=== PATIENT | female | born 1945 | race Caucasian/White ===

== ENCOUNTER 2018-01-26 13:45 | Inpatient (IN) | payer MEDICARE, OTHER ==
--- NOTE | 2018-01-26 14:01 | ED Physician Chart ---
ED Chief Complaint/HPI - Patient Information Date Seen:: 01/26/18 Time Seen:: 13:45 Chief Complaint:: Agitation History of Present Illness:: onset x 3 days of agitation and hostile behavior; no report of SIs, trauma, H/As , S/T, neck pain, C/P, SOB, Abd. Pain, A/N/V/D/C, fever, chills, or urinarys/s Allergies:: Allergies Allergy/AdvReac Type Severity Reaction Status Date / Time MDX No Known Allergies - Nka Allergy Verified 10/07/14 18:08 [No Known Allergies - Nka] Historian:: Patient, EMS Review:: Nurse's Note Reviewed, Old Chart Reviewed, EMS run form Reviewed ED Review of Systems - Review of Systems General/Constitutional: No fever, No chills, No weight loss, No weakness, No diaphoresis, No edema, No loss of appetite Skin: No skin lesions, No rash, No bruising Head: No headache, No light-headedness Eyes: No loss of vision, No pain, No diplopia ENT: No earache, No nasal drainage, No sore throat, No tinnitus Neck: No neck pain, No swelling, No thyromegaly, No stiffness, No mass noted Cardio Vascular: No chest pain, No palpitations, No PND, No orthopnea, No edema Pulmonary: No SOB, No cough, No sputum, No wheezing GI: No nausea, No vomiting, No diarrhea, No pain, No melena, No hematochezia, No constipation, No hematemesis G/U: No dysuria, No frequency, No hematuria, No nacturia [employer]: No vaginal discharge, No abnormal vaginal bleed, No contraction Musculoskeletal: No bone or joint pain, No back pain, No muscle pain Endocrine: No polyuria, No polydipsia Psychiatric: Prior psych history, No depression, Anxiety, No suicidal ideation, No homicidal ideation, No auditory hallucination, No visual hallucination Hematopoietic: No bruising, No lymphadenopathy Allergic/Immuno: No urticaria, No angioedema Neurological: No syncope, No focal symptoms, No weakness, No paresthesia, No headache, No seizure, No dizziness, No confusion, No vertigo ED Past Medical History - Past Medical History Obtainable: Yes Past Medical History: HTN, CAD, Dyslipidemia, Arthritis Family History: HTN Social History: Non Smoker, No Alcohol, No Drug Use, Single, Care Facility Surgical History: None Psychiatricy History: Bipolar Medication: Reviewed Family Medical History - Family Member Mother History Unknown: Yes Ethnicity: Non- Living Status: Hx Family Cancer: No Hx Family Coronary Artery Disease: No Hx Family Congestive Heart Failure: No Hx Family Hypertension: Yes Hx Family Stroke: No Hx Family Diabetes: No Hx Family Seizures: No Hx Family Dementia: Yes Hx Family AIDS: No Hx Family HIV: No Hx Family COPD: No Hx Family Hepatitis: No Hx Family Psychiatric Problems: Yes Hx Family Tuberculosis: No ED Physical Exam - Physical Examination General/Constitutional: Awake, Well-developed, well-nourished, Alert, No distress, GCS 15, Non-toxic appearing, Ambulatory Head: Atraumatic Eyes: Lids, conjuctiva normal, PERRL, EOMI Skin: Nl inspection, No rash, No skin lesions, No ecchymosis, Well hydrated, No lymphadenopathy ENMT: External ears, nose nl, TM canals nl, Nasal exam nl, Lips, teeth, gums nl , Oropharynx nl, Tonsils nl Neck: Nontender, Full ROM w/o pain, No JVD, No nuchal rigidity, No bruit, No mass, No stridor Respiratory: Nl effort/Exclusion, Clear to Auscultation, No Wheeze/Rhonchi/Rales Cardio Vascular: RRR, No murmur, gallop, rubs, NL S1 S2, Carotid/Femoral/Distal pulses equal bilaterally GI: No tenderness/rebounding/guarding, No organomegaly, No hernia, Normal BS's, Nondistended, No mass/bruits, No McBurney tenderness : No CVA tenderness Extremities: No tenderness or effusion, Full ROM, normal strength in all extremities, No edema, Normal digits & nails Neuro/Psych: Alert/oriented, DTR's symmetric, Normal sensory exam, Normal motor strength, Judgement/insight normal, Mood normal, Normal gait, No focal deficits Other Neuro/Psych comments:: + Psychomotor Agitation; no SIs; Mood/Affect: Labile Misc: Normal back, No paraspinal tenderness ED Labs/Radiology/EKG Results - Lab Results Comments:: unremarkable - EKG Interpretations EKG Time:: 13:59 Rate & Rhythm: 99; NSR Comments:: non-specific st-t changes ED Septic Shock - . Is Septic Shock (SBP<90, OR Lactate>4 mmol\L) present?: No ED Reassessment (Disposition) - Reassessment Reassessment Condition:: Improved - Diagnosis Diagnosis:: Dx: Agitation; Bipolar Disorder; Psychosis; Medical Clearance - Aftercare/Follow up Instructions Aftercare/Follow-Up Instructions:: Counseled pt regarding lab results/diagnosis & need follow up, Counseled pt & family regarding lab results/diagnosis & need follow up - Patient Disposition Discharge/Transfer:: Acute Care w/in this hosp Admitted to:: [facility] Condition at Disposition:: Stable, Improved
[2018-01-26 14:13] LABS: % BASOPHILS 1.2 % (0.0-2.0); % EOSINOPHILS 1.4 % (0.0-5.0); % LYMPHOCYTES 36.1 % (20.0-50.0); % MONOCYTES 5.6 % (2.0-10.0); % NEUTROPHILS 55.7 % (40.0-80.0); BASOPHILE ABSOLUTE 0.1 Th/cumm (0-0.2); EOSINOPHILE ABSOLUTE 0.1 Th/cmm (0.1-0.4); HEMATOCRIT 39.8 % (41.0-60); HEMOGLOBIN 13.2 gm/dL (12-16); LYMPHOCYTE ABSOLUTE 3.8 Th/cmm (1.5-3.0); MEAN CELL VOLUME 88.9 fl (81-100); MEAN CORPUSCULAR HEMOGLOBIN 29.5 pg (27.0-31.0); MEAN CORPUSCULAR HGB CONC 33.2 pg (28.0-36.0); MEAN PLATELET VOLUME 9.2 fl; MONOCYTE ABSOLUTE 0.6 Th/cmm (0.3-1.0); NEUTROPHILE ABSOLUTE 5.8 Th/cmm (1.8-8.0); PLATELET COUNT 319 Th/cmm (150-400); RED BLOOD COUNT 4.47 Mil/cmm (3.80-5.20); RED CELL DISTRIBUTION WIDTH 14.4 % (11.5-20.0); WHITE BLOOD COUNT 10.4 Th/cmm (4.8-10.8)
[2018-01-26 14:31] LABS: A1C % 5.4 % (4.0-6.0)
[2018-01-26 14:36] LABS: ACETAMINOPHEN < 10.0 ug/mL (10.0-30.0); ALB/GLOB RATIO 1.2 (1.0-1.8); ALKALINE PHOSPHATASE 48 U/L (34-104); ANION GAP 17.2 (7.0-16.0); BILIRUBIN,TOTAL 0.6 mg/dL (0.3-1.0); BUN - UREA NITROGEN 35 mg/dL (7-25); CALCIUM SERUM 9.9 mg/dL (8.6-10.3); CARBON DIOXIDE 16.5 mEq/L (21.0-31.0); CHLORIDE 109 mEq/L (98-107); CHOLESTEROL 146 mg/dL (<200); CREATININE - SERUM 1.8 mg/dL (0.6-1.2); GLUCOSE 92 mg/dL (70-105); HDL -HIGH DENSITY LIPOPROTEIN 28 mg/dL (23-92); POTASSIUM SERUM 4.7 mEq/L (3.5-5.1); SALICYLATES (ASPIRIN) < 25.0 mg/L (30.0-100.0); SGOT 20 U/L (13-39); SGPT/ALT 21 U/L (7-52); SODIUM SERUM 138 mEq/L (136-145); TOTAL PROTEIN,SERUM 7.4 gm/dL (6.0-8.3); TRIGLYCERIDES 153 mg/dL (<150)
[2018-01-26 17:32] VITALS: BP 142/53
[2018-01-26] MEDS ORDERED: Magnesium Hydroxide (MOM) 30 mL UDC PO PRN (21:12)
[2018-01-26] MEDS ORDERED: Maalox 30 mL Cup PO PRN (21:12)
[2018-01-26] MEDS ORDERED: Albuterol Nebulizer 2.5mg/3mL HHN PRN (21:12)
[2018-01-27] MEDS ORDERED: Non-Formulary Item 1 EA (Linaclotide [Linzess] 145 MCG) PO SCH (09:00)
[2018-01-27] MEDS: Lactobacillus Rhamnosus GG 15 Billion CFU CAP.SPRINK PO SCH (12:55)
[2018-01-27] MEDS: Potassium Chloride 20 mEq ER Tab PO SCH (12:56)
[2018-01-27] MEDS: Multivitamin w/ Minerals Tab PO SCH (12:56)
--- NOTE | 2018-01-27 23:42 | History & Physical ---
ADMIT DATE: 01/27/2018 REASON FOR ADMISSION: Psychiatric disorder. HISTORY OF PRESENT ILLNESS: This is a 73-year-old female with underlying history of seizure disorders, hypertension, GERD, dementia, mental disorders, who was admitted to [facility] for underlying psychiatric illness by Dr. Sandoval. Dr. Sandoval requested medical H and P on this patient. The patient's at the time of evaluation seems very confused and noncooperative, unable to get any meaningful history. Most of the history was obtained through available medical records. PAST MEDICAL HISTORY: Hypertension, seizure disorder, GERD. PAST SURGICAL HISTORY: No significant past surgical history reported. SOCIAL HISTORY: No reported alcohol, tobacco or street drug use. CURRENT MEDICATIONS: Albuterol, Norvasc, Depakote, Colace, Pepcid, Ativan, Cozaar, milk of magnesia, Megace, Lopressor, Seroquel, Klor-Con, Ambien. REVIEW OF SYSTEMS: Difficult to obtain due to the patient's uncooperativeness. ALLERGIES: ALLERGIC TO PENICILLIN. PHYSICAL EXAMINATION: VITAL SIGNS: Temperature 97.7, pulse 93, respirations 20, blood pressure 157/71, oxygen 94% on room air. Pain is 0/10. GENERAL APPEARANCE: The patient does not seem in acute distress. HEART: S1, S2 normal. LUNGS: Clear to auscultation bilaterally. ABDOMEN: Soft. NEUROLOGIC: The patient is awake, but confused. Able to move all extremities. EXTREMITIES: Negative for edema. AVAILABLE LABORATORY DATA: WBC 10.4, hemoglobin 13.0, hematocrit is 39.8, platelet count is 319. Sodium 130, potassium 4.7, BUN 35, creatinine 1.8, AST 20, ALT 21. LDL 93. TSH 2.89. Ethyl alcohol less than 10. ASSESSMENT: 1. Acute renal failure most likely underlying dehydration. 2. Hypertension. 3. Seizure disorder. 4. Gastroesophageal reflux disease. 5. Dementia. 6. Psychiatric disorder. PLAN: We will monitor the patient's renal functions closely. I discussed with nursing staff regarding encouraging patient to have more oral intake. We will monitor renal functions closely. Monitor vital signs. Medication list reviewed. Psych evaluation done by psychiatrist. The patient is medically stable to participate in activity at [facility]. Thank you, Dr. Sandoval, for allowing me to participate in the care of this patient. JOB# [id number]
--- NOTE | 2018-01-28 05:40 | Psychosocial Evaluation ---
DATE OF SERVICE: 01/27/2018 IDENTIFYING DATA: The patient is a 73-year-old woman, a resident of [facility]. Information obtained directly interviewing the patient as well as reviewing the admission papers. JUSTIFICATION FOR THE HOSPITALIZATION: The patient is admitted on a voluntary basis in view of her aggression and agitated behavior. CHIEF COMPLAINT: "I do not know. I do not need any medications." HISTORY OF PRESENT ILLNESS: This is the second psychiatric hospitalization for this patient who has been diagnosed to have schizoaffective disorder and is maintained on the mood stabilizers and antipsychotics and the patient has been referred over here because of her acute agitation and aggressive behavior. The patient is reporting that she is doing fine and then she does not need to be on any medications. The patient's sleep and appetite prior to the hospitalization are not reported to be poor and patient has been reluctant to comply with the medication. Prior to the hospitalization, the patient has been on the valproic acid 250 mg twice a day and the patient has been very agitated and Seroquel is going to be added today to see if the patient is going to be compliant with the medication. PAST PSYCHIATRIC HISTORY: Please refer to the above. The patient was hospitalized under my care in 2014. MEDICAL HISTORY: Physical examination is requested to be done by Dr. Salas. SUBSTANCE ABUSE HISTORY: None. PHYSICAL OR SEXUAL ABUSE HISTORY: None. LEGAL PROBLEMS: None at this time. STRENGTH AND ASSETS: The patient is motivated. MENTAL STATUS EXAMINATION: The patient is a 73-year-old, looking her stated age, superficially cooperative. Eye contact is fair. Mood is irritable. Affect is constricted. Insight and judgment at this time are noted to be still impaired. Impulse control seems to be poor. Coping skills are noted to be poor. The patient has been very reluctant to comply with the medication. The patient has been having difficult time to cope with the stress. The patient is testing the limits. The patient is alert and aware that she is in the hospital. DIAGNOSTIC IMPRESSION: AXIS I: Schizoaffective disorder. AXIS II: None. AXIS III: As per Dr. Salas. IMMEDIATE TREATMENT PLAN: The patient is going to be observed on inpatient unit and provided with supportive psychotherapy. The patient is going to be closely monitored. I encouraged to verbalize the concerns rather than to act out. Once stabilized, the patient is going to be discharged to [facility] to be followed up on an outpatient basis. [facility]# [id number]
[2018-01-28] MEDS: Multivitamin w/ Minerals Tab PO SCH (09:03)
[2018-01-28] MEDS: Potassium Chloride 20 mEq ER Tab PO SCH (09:04)
[2018-01-28] MEDS: Lactobacillus Rhamnosus GG 15 Billion CFU CAP.SPRINK PO SCH (09:04)
--- NOTE | 2018-01-28 18:47 | Progress Notes ---
DATE: 01/28/2018 SUBJECTIVE: Mood is noted to be irritable. Affect is constricted. Insight and judgment are noted to be impaired. The patient is refusing to comply with the treatment. The patient has been hitting herself and has been trying to hit the staff members too. The patient has no coping skills. The patient is very paranoid. Coping skills are noted to be extremely poor. ASSESSMENT: The patient is still grossly psychotic and impulsive. PLAN: To place the patient on a 72-hour hold and encourage the patient to verbalize the concerns rather than to act out and if the patient continues to be compliant with the medication, the patient is going to be placed on the [place] hearing. [facility]# [id number]
--- NOTE | 2018-01-28 21:02 | General Progress Note ---
Subjective - Review of Systems Service Date: 01/28/18 Subjective: Patient seen and examined confused no new concern reported Objective - Results Result Diagrams: 01/26/18 14:04 01/26/18 14:04 Recent Labs: Laboratory Last Values WBC 10.4 Th/cmm (4.8-10.8) 01/26/18 14:04 RBC 4.47 Mil/cmm (3.80-5.20) 01/26/18 14:04 Hgb 13.2 gm/dL (12-16) 01/26/18 14:04 Hct 39.8 % (41.0-60) L 01/26/18 14:04 MCV 88.9 fl (81-100) 01/26/18 14:04 MCH 29.5 pg (27.0-31.0) 01/26/18 14:04 MCHC Differential 33.2 pg (28.0-36.0) 01/26/18 14:04 RDW 14.4 % (11.5-20.0) 01/26/18 14:04 Plt Count 319 Th/cmm (150-400) 01/26/18 14:04 MPV 9.2 fl 01/26/18 14:04 Neutrophils % 55.7 % (40.0-80.0) 01/26/18 14:04 Lymphocytes % 36.1 % (20.0-50.0) 01/26/18 14:04 Monocytes % 5.6 % (2.0-10.0) 01/26/18 14:04 Eosinophils % 1.4 % (0.0-5.0) 01/26/18 14:04 Basophils % 1.2 % (0.0-2.0) 01/26/18 14:04 Sodium 138 mEq/L (136-145) 01/26/18 14:04 Potassium 4.7 mEq/L (3.5-5.1) 01/26/18 14:04 Chloride 109 mEq/L (98-107) H 01/26/18 14:04 Carbon Dioxide 16.5 mEq/L (21.0-31.0) L 01/26/18 14:04 Anion Gap 17.2 (7.0-16.0) H 01/26/18 14:04 BUN 35 mg/dL (7-25) H 01/26/18 14:04 Creatinine 1.8 mg/dL (0.6-1.2) H 01/26/18 14:04 Est GFR ( Amer) TNP 01/26/18 14:04 Est GFR (Non-Af Amer) TNP 01/26/18 14:04 BUN/Creatinine Ratio 19.4 01/26/18 14:04 Glucose 92 mg/dL (70-105) 01/26/18 14:04 Hemoglobin A1c % 5.4 % (4.0-6.0) 01/26/18 14:04 Calcium 9.9 mg/dL (8.6-10.3) 01/26/18 14:04 Total Bilirubin 0.6 mg/dL (0.3-1.0) 01/26/18 14:04 AST 20 U/L (13-39) 01/26/18 14:04 ALT 21 U/L (7-52) 01/26/18 14:04 Alkaline Phosphatase 48 U/L (34-104) 01/26/18 14:04 Total Protein 7.4 gm/dL (6.0-8.3) 01/26/18 14:04 Albumin 4.0 gm/dL (3.7-5.3) 01/26/18 14:04 Globulin 3.4 gm/dL 01/26/18 14:04 Albumin/Globulin Ratio 1.2 (1.0-1.8) 01/26/18 14:04 Triglycerides 153 mg/dL (<150) H 01/26/18 14:04 Cholesterol 146 mg/dL (<200) 01/26/18 14:04 LDL Cholesterol Direct 93 mg/dL (75-193) 01/26/18 14:04 HDL Cholesterol 28 mg/dL (23-92) 01/26/18 14:04 TSH 2.89 uIU/ml (0.34-5.60) 01/26/18 14:04 Salicylates < 25.0 mg/L (30.0-100.0) L 01/26/18 14:04 Acetaminophen < 10.0 ug/mL (10.0-30.0) L 01/26/18 14:04 Ethyl Alcohol < 10 mg/dL (0-10) 01/26/18 14:04 - Physical Exam Vitals and I&O: Vital Signs Temp 97.7 F 01/28/18 20:00 Pulse 72 01/28/18 20:00 Resp 17 01/28/18 20:00 BP 132/58 01/28/18 20:00 Pulse Ox 96 01/28/18 20:00 Intake & Output 01/28/18 01/28/18 01/29/18 06:59 18:59 06:59 Intake Total 240 Balance 240 Intake: Oral 240 Other: # Voids 3 Active Medications: Current Medications Acetaminophen (Tylenol) 650 mg PO Q4HR PRN PRN Reason: Mild Pain / Temp above 100 Stop: 03/27/18 21:13 Al Hydrox/Mg Hydrox/Simethicone (Maalox) 30 ml PO Q6HR PRN PRN Reason: Upset Stomach / Indigestion Stop: 03/27/18 21:11 Albuterol Sulfate (Albuterol 2.5mg/3ml Neb Ud) 2.5 mg HHN Q6HRT PRN PRN Reason: WHEEZING AND SOB Stop: 03/27/18 21:11 Amlodipine Besylate (Norvasc) 10 mg PO DAILY [facility] Stop: 03/28/18 08:59 Last Admin: 01/28/18 09:03 Dose: 10 mg Divalproex Sodium (Depakote Dr) 250 mg PO Q12HR ETHEL PRN Reason: Protocol Stop: 03/28/18 08:59 Last Admin: 01/28/18 09:03 Dose: 250 mg Docusate Sodium (Colace) 100 mg PO BID E[facility] Stop: 03/28/18 08:59 Last Admin: 01/28/18 17:13 Dose: 100 mg Famotidine (Pepcid) 20 mg PO BID [facility] Stop: 03/28/18 08:59 Last Admin: 01/28/18 17:09 Dose: 20 mg Lactobacillus Rhamnosus (Culturelle 15b) 1 each PO DAILY [facility] Stop: 03/28/18 08:59 Last Admin: 01/28/18 09:04 Dose: 1 each Lorazepam (Ativan) 0.5 mg PO Q4HR PRN; Protocol PRN Reason: Anxiety Stop: 02/25/18 21:13 Last Admin: 01/28/18 17:09 Dose: 0.5 mg Losartan Potassium (Cozaar) 50 mg PO DAILY [facility] Stop: 03/28/18 08:59 Last Admin: 01/28/18 09:04 Dose: 50 mg Magnesium Hydroxide (Milk Of Magnesia) 30 ml PO HS PRN PRN Reason: Constipation Stop: 03/27/18 21:11 Megestrol Acetate (Megace) 400 mg PO BID [facility] Stop: 03/28/18 08:59 Last Admin: 01/28/18 17:10 Dose: 400 mg Metoprolol Tartrate (Lopressor) 50 mg PO BID [facility] Stop: 03/28/18 08:59 Last Admin: 01/28/18 17:10 Dose: 50 mg Miscellaneous (Linaclotide [Linzess]) 145 mcg PO DAILY [facility] Stop: 03/28/18 08:59 Mupirocin (Bactroban Oint) 1 appl NS BID [facility] Stop: 02/02/18 09:01 Potassium Chloride (Klor-Con) 20 meq PO DAILY [facility] Stop: 03/28/18 08:59 Last Admin: 01/28/18 09:04 Dose: 20 meq Quetiapine Fumarate (Seroquel) 12.5 mg PO HS ETHEL PRN Reason: Protocol Stop: 03/28/18 20:59 Zolpidem Tartrate (Ambien) 5 mg PO HS PRN PRN Reason: Insomnia Stop: 03/27/18 21:13 Cardiovascular: Regular rate Lungs: Clear to auscultation - Procedures Procedures: Procedures Procedure Code Date OTHER GROUP THERAPY 94.44 05/10/15 RECREATIONAL THERAPY 93.81 08 Assessment/Plan - Problem List Patient Problems: All Active Problems INCREASED AGITATION, AGGRESSION/CONFUSIO (Acute) - Assessment Assessment: HTN GERD SEIZURE MRSA COLONIZATION - Plan Plan: Continue current treatment Monitor BP Bactroban Pepcid Psych follow up
[2018-01-29] MEDS ORDERED: Haloperidol Lactate 5 mg/mL 1mL Vial ONE (09:00)
[2018-01-29] MEDS: Lactobacillus Rhamnosus GG 15 Billion CFU CAP.SPRINK PO SCH (09:11)
[2018-01-29] MEDS: Multivitamin w/ Minerals Tab PO SCH (09:12)
[2018-01-29] MEDS: Potassium Chloride 20 mEq ER Tab PO SCH (09:12)
[2018-01-29] MEDS ORDERED: Haloperidol Lactate 5 mg/mL 1mL Vial IM ONE (09:15)
--- NOTE | 2018-01-29 18:25 | General Progress Note ---
Subjective - Review of Systems Service Date: 01/29/18 Subjective: Patient seen and examined doing ok no new concern reported Objective - Results Result Diagrams: 01/26/18 14:04 01/26/18 14:04 Recent Labs: Laboratory Last Values WBC 10.4 Th/cmm (4.8-10.8) 01/26/18 14:04 RBC 4.47 Mil/cmm (3.80-5.20) 01/26/18 14:04 Hgb 13.2 gm/dL (12-16) 01/26/18 14:04 Hct 39.8 % (41.0-60) L 01/26/18 14:04 MCV 88.9 fl (81-100) 01/26/18 14:04 MCH 29.5 pg (27.0-31.0) 01/26/18 14:04 MCHC Differential 33.2 pg (28.0-36.0) 01/26/18 14:04 RDW 14.4 % (11.5-20.0) 01/26/18 14:04 Plt Count 319 Th/cmm (150-400) 01/26/18 14:04 MPV 9.2 fl 01/26/18 14:04 Neutrophils % 55.7 % (40.0-80.0) 01/26/18 14:04 Lymphocytes % 36.1 % (20.0-50.0) 01/26/18 14:04 Monocytes % 5.6 % (2.0-10.0) 01/26/18 14:04 Eosinophils % 1.4 % (0.0-5.0) 01/26/18 14:04 Basophils % 1.2 % (0.0-2.0) 01/26/18 14:04 Sodium 138 mEq/L (136-145) 01/26/18 14:04 Potassium 4.7 mEq/L (3.5-5.1) 01/26/18 14:04 Chloride 109 mEq/L (98-107) H 01/26/18 14:04 Carbon Dioxide 16.5 mEq/L (21.0-31.0) L 01/26/18 14:04 Anion Gap 17.2 (7.0-16.0) H 01/26/18 14:04 BUN 35 mg/dL (7-25) H 01/26/18 14:04 Creatinine 1.8 mg/dL (0.6-1.2) H 01/26/18 14:04 Est GFR ( Amer) TNP 01/26/18 14:04 Est GFR (Non-Af Amer) TNP 01/26/18 14:04 BUN/Creatinine Ratio 19.4 01/26/18 14:04 Glucose 92 mg/dL (70-105) 01/26/18 14:04 Hemoglobin A1c % 5.4 % (4.0-6.0) 01/26/18 14:04 Calcium 9.9 mg/dL (8.6-10.3) 01/26/18 14:04 Total Bilirubin 0.6 mg/dL (0.3-1.0) 01/26/18 14:04 AST 20 U/L (13-39) 01/26/18 14:04 ALT 21 U/L (7-52) 01/26/18 14:04 Alkaline Phosphatase 48 U/L (34-104) 01/26/18 14:04 Total Protein 7.4 gm/dL (6.0-8.3) 01/26/18 14:04 Albumin 4.0 gm/dL (3.7-5.3) 01/26/18 14:04 Globulin 3.4 gm/dL 01/26/18 14:04 Albumin/Globulin Ratio 1.2 (1.0-1.8) 01/26/18 14:04 Triglycerides 153 mg/dL (<150) H 01/26/18 14:04 Cholesterol 146 mg/dL (<200) 01/26/18 14:04 LDL Cholesterol Direct 93 mg/dL (75-193) 01/26/18 14:04 HDL Cholesterol 28 mg/dL (23-92) 01/26/18 14:04 TSH 2.89 uIU/ml (0.34-5.60) 01/26/18 14:04 Salicylates < 25.0 mg/L (30.0-100.0) L 01/26/18 14:04 Acetaminophen < 10.0 ug/mL (10.0-30.0) L 01/26/18 14:04 Ethyl Alcohol < 10 mg/dL (0-10) 01/26/18 14:04 - Physical Exam Vitals and I&O: Vital Signs Temp 98.2 F 01/29/18 14:00 Pulse 87 01/29/18 14:00 Resp 18 01/29/18 14:00 BP 135/75 01/29/18 14:00 Pulse Ox 97 01/29/18 14:00 Intake & Output 01/28/18 01/29/18 01/29/18 18:59 06:59 18:59 Intake Total 240 1100 Balance 240 1100 Intake: Oral 240 1100 Other: # Voids 3 2 # Bowel Movements 0 Active Medications: Current Medications Acetaminophen (Tylenol) 650 mg PO Q4HR PRN PRN Reason: Mild Pain / Temp above 100 Stop: 03/27/18 21:13 Al Hydrox/Mg Hydrox/Simethicone (Maalox) 30 ml PO Q6HR PRN PRN Reason: Upset Stomach / Indigestion Stop: 03/27/18 21:11 Albuterol Sulfate (Albuterol 2.5mg/3ml Neb Ud) 2.5 mg HHN Q6HRT PRN PRN Reason: WHEEZING AND SOB Stop: 03/27/18 21:11 Amlodipine Besylate (Norvasc) 10 mg PO DAILY [facility] Stop: 03/28/18 08:59 Last Admin: 01/29/18 09:11 Dose: Not Given Divalproex Sodium (Depakote Dr) 250 mg PO Q12HR ETHEL PRN Reason: Protocol Stop: 03/28/18 08:59 Last Admin: 01/29/18 09:11 Dose: Not Given Docusate Sodium (Colace) 100 mg PO BID [facility] Stop: 03/28/18 08:59 Last Admin: 01/29/18 17:24 Dose: 100 mg Famotidine (Pepcid) 20 mg PO BID [facility] Stop: 03/28/18 08:59 Last Admin: 01/29/18 17:23 Dose: 20 mg Lactobacillus Rhamnosus (Culturelle 15b) 1 each PO DAILY [facility] Stop: 03/28/18 08:59 Last Admin: 01/29/18 09:11 Dose: Not Given Lorazepam (Ativan) 0.5 mg PO Q4HR PRN; Protocol PRN Reason: Anxiety Stop: 02/25/18 21:13 Last Admin: 01/28/18 17:09 Dose: 0.5 mg Losartan Potassium (Cozaar) 50 mg PO DAILY [facility] Stop: 03/28/18 08:59 Last Admin: 01/29/18 09:12 Dose: Not Given Magnesium Hydroxide (Milk Of Magnesia) 30 ml PO HS PRN PRN Reason: Constipation Stop: 03/27/18 21:11 Megestrol Acetate (Megace) 400 mg PO BID [facility] Stop: 03/28/18 08:59 Last Admin: 01/29/18 17:25 Dose: 400 mg Metoprolol Tartrate (Lopressor) 50 mg PO BID [facility] Stop: 03/28/18 08:59 Last Admin: 01/29/18 17:25 Dose: Not Given Miscellaneous (Linaclotide [Linzess]) 145 mcg PO DAILY [facility] Stop: 03/28/18 08:59 Mupirocin (Bactroban Oint) 1 appl NS BID [facility] Stop: 02/02/18 09:01 Last Admin: 01/29/18 17:24 Dose: Not Given Potassium Chloride (Klor-Con) 20 meq PO DAILY [facility] Stop: 03/28/18 08:59 Last Admin: 01/29/18 09:12 Dose: Not Given Quetiapine Fumarate (Seroquel) 12.5 mg PO HS ETHEL PRN Reason: Protocol Stop: 03/28/18 20:59 Last Admin: 01/28/18 21:00 Dose: Not Given Zolpidem Tartrate (Ambien) 5 mg PO HS PRN PRN Reason: Insomnia Stop: 03/27/18 21:13 Last Admin: 01/28/18 21:15 Dose: 5 mg Cardiovascular: Regular rate Lungs: Clear to auscultation - Procedures Procedures: Procedures Procedure Code Date OTHER GROUP THERAPY 94.44 05/10/15 RECREATIONAL THERAPY 93.81 12/31/07 Assessment/Plan - Problem List Patient Problems: All Active Problems INCREASED AGITATION, AGGRESSION/CONFUSIO (Acute) - Assessment Assessment: HTN GERD SEIZURE MRSA COLONIZATION - Plan Plan: Continue current treatment Monitor BP Bactroban Pepcid Psych follow up
--- NOTE | 2018-01-30 01:34 | Progress Notes ---
DATE: 01/29/2018 SUBJECTIVE: The patient is interviewed. Mood is noted to be irritable. Affect is constricted. Insight and judgement is noted be ____ still impaired. Impulse control seems to be poor. The patient has to be given a dose of Haldol. The patient has been reluctant to take the medication. The patient has been getting out of control and has been given 2 mg of the Haldol and has been able to tolerate the medications. No side effects to the medications are noted. The patient continues to be paranoid and is not ready to be discharged to a lower level of care in view of her psychosis and impulsivity. The dose of the Seroquel is increased to 25 mg and the patient is going to be closely monitored and followed up. JOB# [id number]
--- NOTE | 2018-01-30 02:10 | Consultation ---
DATE OF CONSULTATION: 01/29/2018 REFERRING PHYSICIAN: Edith Sandoval MD. TYPE OF CONSULTATION: Psychology. HISTORY OF PRESENT ILLNESS: The patient is a 73-year-old female. The patient is a resident of [facility]. The patient is known to this blog writer from Psychology Service at her retirement facility for several years. The following is by record review and by patient's self report. The patient is being admitted due to increased aggression and agitated behavior as well as refusing medication. The patient was originally seen by this blog writer on 01/25/2018 at her retirement facility. The patient presented as agitated and angry as well as behaviorally un-redirectable and uncontainable. The patient was throwing personal items on the ground and refusing medication. The patient also was resisting care from the staff. The charge nurse contacted the psychiatrist, Dr. Christopher Quezada regarding possible inpatient admission. Dr. Quezada and this blog writer recommended transfer to [facility] for stabilization due to the above concerns. Upon interview, the patient states that she does not need any medications and that she does not need to be in the hospital. The patient is easily agitated. The patient has been refusing medications and reluctant to comply with care and treatment provided by the staff. The patient denies any suicidal ideation, plan or intention. The patient is unable to contract for safety. PAST MEDICAL HISTORY: Please see history and physical by Dr. Salas. PAST PSYCHIATRIC HISTORY: The patient has a long history of schizoaffective disorder and Dementia with behavioral disturbance. The patient is under the care of a psychiatrist, Dr. Christopher Quezada and psychologist , Dr. Pablito Pepper at the patient's Longterm Facility, [facility]. The patient has had a previous hospitalization here in 2014 and was under the care of Dr. Sandoval. SUBSTANCE ABUSE HISTORY: None. PSYCHOSOCIAL HISTORY: The patient did not answer questions about occupational history, educational history or rastafarian affiliation. The patient denied any history of physical or sexual abuse. The patient denies any legal problems at the time of this interview. MENTAL STATUS EXAMINATION: The patient appears to be her stated age. The patient's attitude is guarded and argumentative. Eye contact is fair to poor. Speech is spontaneous; however, selectively mute at times. The patient is reluctant to answer some of the clinical interview questions. Mood is irritable and angry. Affect is constricted and mood congruent. Thought process shows perseveration on the patient's current condition. There is some evidence of paranoid ideation. The patient denied any auditory or visual hallucinations. She denied any suicidal ideation, plan or intention. The patient's behavior is reluctant to comply with medication as well as difficulty with redirection by the staff. The patient is testing limits. Impulse control is inadequate. Concentration is poor. The patient did not participate in the memory assessment. Sensorium is alert and oriented to person and place. The patient did not participate in the interpretation of proverbs. Insight is impaired. Judgment is impaired. DIAGNOSTIC IMPRESSION: AXIS I: Schizoaffective disorder. History of Dementia with behavioral disturbance. AXIS II: Deferred. AXIS III: Please see history and physical by Dr. Salas. TREATMENT PLAN: The patient has been seen by Dr. Sandvoal for psychiatric evaluation and for the management of the patient's psychotropic medications. We will provide supportive psychotherapy to include a simple de-escalation skill as well as limit setting to reduce the patient's resistance. We will provide motivational enhancement for the patient to become compliant and stay compliant with all aspects of her care and treatment, specifically to accept medication that has been recommended. The patient had been stabilized on previous medications, but had refused these medications at her retirement facility. We will provide coping strategies for phase of life issues. We will provide anger management. We will also encourage the patient to verbalize concerns versus acting out. We will monitor the patient and provide supportive therapy to include demonstration of emotional regulation successfully prior to her discharge and return to her retirement facility. Thank you, Dr. Sandoval, for this consult and the opportunity to participate with you in this patient's care. JOB# [id number] LEAH
[2018-01-30] MEDS: Lactobacillus Rhamnosus GG 15 Billion CFU CAP.SPRINK PO SCH (09:17)
[2018-01-30] MEDS: Potassium Chloride 20 mEq ER Tab PO SCH (09:17)
[2018-01-30] MEDS: Multivitamin w/ Minerals Tab PO SCH (09:22)
--- NOTE | 2018-01-31 05:29 | Progress Notes ---
DATE: 01/30/2018 PSYCHIATRIC PROGRESS NOTE SUBJECTIVE: Staff was spoken to. The patient is interviewed. The patient is actively responding to internal stimuli. Insight and judgement are noted to be impaired. Impulse control is noted to be poor. The patient has been testing the limits. The patient has been reluctant to comply with the medication. The patient has to be given a dose of the Haldol yesterday and the patient started to calm down. The patient is currently on 25 mg of the Seroquel at bedtime and Depakote 250 mg twice a day. ASSESSMENT: The patient is still impulsive and having mood swings. PLAN: To continue the patient with the supportive therapy and followup. JOB# [id number]
[2018-01-31] MEDS ORDERED: Haloperidol Lactate 5 mg/mL 1mL Vial ONE (07:53)
[2018-01-31] MEDS ORDERED: Haloperidol Lactate 5 mg/mL 1mL Vial IM ONE (07:54)
[2018-01-31] MEDS: Multivitamin w/ Minerals Tab PO SCH (09:33)
[2018-01-31] MEDS: Lactobacillus Rhamnosus GG 15 Billion CFU CAP.SPRINK PO SCH (09:33)
[2018-01-31] MEDS: Potassium Chloride 20 mEq ER Tab PO SCH (09:34)
--- NOTE | 2018-02-01 04:01 | Progress Notes ---
DATE: 01/31/2018 SUBJECTIVE: Staff was spoken to. The patient is interviewed. Mood is noted to be irritable. Affect is constricted. The patient has been getting easily irritable in the morning time. Coping skills are noted to be still poor. No side effects to the medications are noted. The patient is currently on 25 mg of Seroquel and has been able to tolerate. The patient is also on Depakote 250 mg twice a day. No side effects to the medications are noted. ASSESSMENT: The patient is still impulsive and paranoid. PLAN: To continue the patient with supportive therapy. I encouraged the patient to verbalize the concerns rather than to act out. JOB# [id number]
[2018-02-01] MEDS: Potassium Chloride 20 mEq ER Tab PO SCH (08:22)
[2018-02-01] MEDS: Lactobacillus Rhamnosus GG 15 Billion CFU CAP.SPRINK PO SCH (08:22)
[2018-02-01] MEDS: Multivitamin w/ Minerals Tab PO SCH (08:22)
--- NOTE | 2018-02-01 16:07 | General Progress Note ---
Subjective - Review of Systems Service Date: 02/01/18 Subjective: Patient seen and examined very confused Objective - Results Result Diagrams: 01/26/18 14:04 01/26/18 14:04 Recent Labs: Laboratory Last Values WBC 10.4 Th/cmm (4.8-10.8) 01/26/18 14:04 RBC 4.47 Mil/cmm (3.80-5.20) 01/26/18 14:04 Hgb 13.2 gm/dL (12-16) 01/26/18 14:04 Hct 39.8 % (41.0-60) L 01/26/18 14:04 MCV 88.9 fl (81-100) 01/26/18 14:04 MCH 29.5 pg (27.0-31.0) 01/26/18 14:04 MCHC Differential 33.2 pg (28.0-36.0) 01/26/18 14:04 RDW 14.4 % (11.5-20.0) 01/26/18 14:04 Plt Count 319 Th/cmm (150-400) 01/26/18 14:04 MPV 9.2 fl 01/26/18 14:04 Neutrophils % 55.7 % (40.0-80.0) 01/26/18 14:04 Lymphocytes % 36.1 % (20.0-50.0) 01/26/18 14:04 Monocytes % 5.6 % (2.0-10.0) 01/26/18 14:04 Eosinophils % 1.4 % (0.0-5.0) 01/26/18 14:04 Basophils % 1.2 % (0.0-2.0) 01/26/18 14:04 Sodium 138 mEq/L (136-145) 01/26/18 14:04 Potassium 4.7 mEq/L (3.5-5.1) 01/26/18 14:04 Chloride 109 mEq/L (98-107) H 01/26/18 14:04 Carbon Dioxide 16.5 mEq/L (21.0-31.0) L 01/26/18 14:04 Anion Gap 17.2 (7.0-16.0) H 01/26/18 14:04 BUN 35 mg/dL (7-25) H 01/26/18 14:04 Creatinine 1.8 mg/dL (0.6-1.2) H 01/26/18 14:04 Est GFR ( Amer) TNP 01/26/18 14:04 Est GFR (Non-Af Amer) TNP 01/26/18 14:04 BUN/Creatinine Ratio 19.4 01/26/18 14:04 Glucose 92 mg/dL (70-105) 01/26/18 14:04 Hemoglobin A1c % 5.4 % (4.0-6.0) 01/26/18 14:04 Calcium 9.9 mg/dL (8.6-10.3) 01/26/18 14:04 Total Bilirubin 0.6 mg/dL (0.3-1.0) 01/26/18 14:04 AST 20 U/L (13-39) 01/26/18 14:04 ALT 21 U/L (7-52) 01/26/18 14:04 Alkaline Phosphatase 48 U/L (34-104) 01/26/18 14:04 Total Protein 7.4 gm/dL (6.0-8.3) 01/26/18 14:04 Albumin 4.0 gm/dL (3.7-5.3) 01/26/18 14:04 Globulin 3.4 gm/dL 01/26/18 14:04 Albumin/Globulin Ratio 1.2 (1.0-1.8) 01/26/18 14:04 Triglycerides 153 mg/dL (<150) H 01/26/18 14:04 Cholesterol 146 mg/dL (<200) 01/26/18 14:04 LDL Cholesterol Direct 93 mg/dL (75-193) 01/26/18 14:04 HDL Cholesterol 28 mg/dL (23-92) 01/26/18 14:04 TSH 2.89 uIU/ml (0.34-5.60) 01/26/18 14:04 Salicylates < 25.0 mg/L (30.0-100.0) L 01/26/18 14:04 Acetaminophen < 10.0 ug/mL (10.0-30.0) L 01/26/18 14:04 Ethyl Alcohol < 10 mg/dL (0-10) 01/26/18 14:04 RPR NONREACTIVE (NONREACTIVE) 01/26/18 14:04 - Physical Exam Vitals and I&O: Vital Signs Temp 97.6 F 01/31/18 20:00 Pulse 137 02/01/18 08:01 Resp 16 02/01/18 08:01 BP 171/68 01/31/18 20:00 Pulse Ox 93 02/01/18 08:01 Intake & Output 01/31/18 02/01/18 02/01/18 18:59 06:59 18:59 Intake Total 420 Balance 420 Intake: Oral 420 Other: # Voids 1 Active Medications: Current Medications Acetaminophen (Tylenol) 650 mg PO Q4HR PRN PRN Reason: Mild Pain / Temp above 100 Stop: 03/27/18 21:13 Al Hydrox/Mg Hydrox/Simethicone (Maalox) 30 ml PO Q6HR PRN PRN Reason: Upset Stomach / Indigestion Stop: 03/27/18 21:11 Albuterol Sulfate (Albuterol 2.5mg/3ml Neb Ud) 2.5 mg HHN Q6HRT PRN PRN Reason: WHEEZING AND SOB Stop: 03/27/18 21:11 Amlodipine Besylate (Norvasc) 10 mg PO DAILY [facility] Stop: 03/28/18 08:59 Last Admin: 02/01/18 08:31 Dose: Not Given Diphenhydramine HCl (Benadryl) 25 mg PO Q6H PRN PRN Reason: Agitation Stop: 04/01/18 19:27 Last Admin: 02/01/18 07:46 Dose: 25 mg Divalproex Sodium (Depakote Dr) 250 mg PO Q12HR ETHEL PRN Reason: Protocol Stop: 03/28/18 08:59 Last Admin: 02/01/18 08:22 Dose: Not Given Docusate Sodium (Colace) 100 mg PO BID [facility] Stop: 03/28/18 08:59 Last Admin: 02/01/18 08:22 Dose: Not Given Famotidine (Pepcid) 20 mg PO BID [facility] Stop: 03/28/18 08:59 Last Admin: 02/01/18 08:22 Dose: Not Given Haloperidol (Haldol) 2 mg PO Q6HR PRN; Protocol PRN Reason: Agitation Stop: 04/02/18 00:00 Last Admin: 02/01/18 07:46 Dose: 2 mg Lactobacillus Rhamnosus (Culturelle 15b) 1 each PO DAILY ETHEL Stop: 03/28/18 08:59 Last Admin: 02/01/18 08:22 Dose: Not Given Lorazepam (Ativan) 0.5 mg PO Q4HR PRN; Protocol PRN Reason: Anxiety Stop: 02/25/18 21:13 Last Admin: 02/01/18 07:46 Dose: 0.5 mg Losartan Potassium (Cozaar) 50 mg PO DAILY ETHEL Stop: 03/28/18 08:59 Last Admin: 02/01/18 08:31 Dose: Not Given Magnesium Hydroxide (Milk Of Magnesia) 30 ml PO HS PRN PRN Reason: Constipation Stop: 03/27/18 21:11 Megestrol Acetate (Megace) 400 mg PO BID [facility] Stop: 03/28/18 08:59 Last Admin: 02/01/18 08:22 Dose: Not Given Metoprolol Tartrate (Lopressor) 50 mg PO BID [facility] Stop: 03/28/18 08:59 Last Admin: 02/01/18 08:31 Dose: Not Given Miscellaneous (Linaclotide [Linzess]) 145 mcg PO DAILY ETHEL Stop: 03/28/18 08:59 Mupirocin (Bactroban Oint) 1 appl NS BID [facility] Stop: 02/02/18 09:01 Last Admin: 02/01/18 08:22 Dose: Not Given Potassium Chloride (Klor-Con) 20 meq PO DAILY [facility] Stop: 03/28/18 08:59 Last Admin: 02/01/18 08:22 Dose: Not Given Quetiapine Fumarate (Seroquel) 25 mg PO BID ETHEL PRN Reason: Protocol Stop: 04/02/18 16:59 Zolpidem Tartrate (Ambien) 5 mg PO HS PRN PRN Reason: Insomnia Stop: 03/27/18 21:13 Last Admin: 01/31/18 21:35 Dose: 5 mg Cardiovascular: Regular rate Lungs: Clear to auscultation - Procedures Procedures: Procedures Procedure Code Date OTHER GROUP THERAPY 94.44 05/10/15 RECREATIONAL THERAPY 93.81 08 Assessment/Plan - Problem List Patient Problems: All Active Problems INCREASED AGITATION, AGGRESSION/CONFUSIO (Acute) - Assessment Assessment: HTN GERD SEIZURE MRSA COLONIZATION - Plan Plan: Continue current treatment Monitor BP Bactroban Pepcid Psych follow up Nutritional Asmnt/Malnutr-PDOC - Dietary Evaluation Malnutrition Findings (Please click <Entered> for more info): Nutritional Asmnt/Malnutrition Start: 01/31/18 18: 07 Text: Status: Complete Freq: Document 01/31/18 18:07 JENN (Rec: 01/31/18 18:20 [email or web address]) Nutritional Asmnt/Malnutrition Patient General Information Nutritional Screening Moderate Risk Diagnosis psychosis Pertinent Medical Hx/Surgical Hx HTN, seisure, GERD Subjective Information Pt seen sleepy in philly-chair. Per ESCROW AGENT, pt was impulsive and aggressive this morning and received emergency shot. Pt usually eats well independently. Per EMR PO intake 25-75%, varied depend on mental status. Current Diet Order/ Nutrition Support DANNI Pertinent Medications colace, cultrelle, megace, kcl , seroquel Pertinent Labs 01/26 cl 109, BUN 35, Cr 1.8, glucose 92, A1c 5.4 Nutritional Hx/Data Height 1.68 m Height (Calculated Centimeters) 167.6 Current Weight (lbs) 65.771 kg Weight (Calculated Kilograms) 65.8 Weight (Calculated Grams) [address]3064.9 [place] Body Weight 130 Body Mass Index (BMI) 23.3 Weight Status Approriate GI Symptoms GI Symptoms None Last BM none Difficult in: None Skin Integrity/Comment: intact Current %PO Fair (50-74%) Estimated Nutritional Goals BEE in Kcals: Using Current wt Calories/Kcals/Kg 25-30 Kcals Calculated 2710-0195 Protein: Using Current wt Protein g/k Protein Calculated 66 Fluid: ml 1650-1980ml (1ml/kcal) Nutritional Problem No current Nutrition Prob Problem n/A Malnutrition Alert Protein-Calorie Malnutrition N/A Is there a minimum of two criteria No selected? Query Text:Check all the applicable criteria. A minimum of two criteria are recommended for diagnosis of either severe or non-severe malnutrition. Intervention/Recommendation Comments 1. Continue with current diet as ordered. 2. Monitor PO intake, wt, labs and skin integrity 3. F/U as low risk in 7 days, 02/07 Expected Outcomes/Goals Expected Outcomes/Goals 1. PO intake to meet at least 75% of nutritional needs. 2. Wt stability, skin to remain intact, labs to approach WNL.
--- NOTE | 2018-02-01 23:29 | Progress Notes ---
DATE: 02/01/2018 SUBJECTIVE: Staff was spoken to. The patient is interviewed. Mood is noted to be irritable. Affect is constricted. Insight and judgment are noted to be still impaired. The patient's family has been met. The daughter has been mentioned that the patient had these kind of episodes once in a year and it will take for a while for her to clear. The patient has been having difficult time to cope with the stress. The patient is trying to be very aggressive and has been trying to throw things around. The patient has to be offered a dose of the haloperidol to control her behavior. The patient is currently on 25 mg of the Seroquel, which is going to be made as 25 mg b.i.d. and the patient is going to be followed up with the supportive therapy. Please note, that the patient is not ready to be discharged to a lower level of care yet. JOB# [id number]
[2018-02-02] MEDS: Multivitamin w/ Minerals Tab PO SCH (08:07)
[2018-02-02] MEDS: Lactobacillus Rhamnosus GG 15 Billion CFU CAP.SPRINK PO SCH (08:07)
[2018-02-02] MEDS: Potassium Chloride 20 mEq ER Tab PO SCH (08:08)
--- NOTE | 2018-02-02 17:26 | Progress Notes ---
DATE: 02/02/2018 PSYCHIATRIC PROGRESS NOTE SUBJECTIVE: Staff was spoken to. The patient is interviewed. Mood is noted to be irritable. Affect is constricted. The patient is throwing stuff around and the patient's mood swings are noted. Insight and judgment are very much impaired. The patient is going on a tangent. PLAN: The patient's Seroquel has been increased to 25 mg twice a day and in view of mood swings the Depakote is going to be increased to 3 times a day and the patient is going to be followed up with the supportive therapy. JOB# [id number]
--- NOTE | 2018-02-02 18:27 | General Progress Note ---
Subjective - Review of Systems Service Date: 02/02/18 Subjective: Patient seen and examined seems less confused no other reported concern Objective - Results Result Diagrams: 01/26/18 14:04 01/26/18 14:04 Recent Labs: Laboratory Last Values WBC 10.4 Th/cmm (4.8-10.8) 01/26/18 14:04 RBC 4.47 Mil/cmm (3.80-5.20) 01/26/18 14:04 Hgb 13.2 gm/dL (12-16) 01/26/18 14:04 Hct 39.8 % (41.0-60) L 01/26/18 14:04 MCV 88.9 fl (81-100) 01/26/18 14:04 MCH 29.5 pg (27.0-31.0) 01/26/18 14:04 MCHC Differential 33.2 pg (28.0-36.0) 01/26/18 14:04 RDW 14.4 % (11.5-20.0) 01/26/18 14:04 Plt Count 319 Th/cmm (150-400) 01/26/18 14:04 MPV 9.2 fl 01/26/18 14:04 Neutrophils % 55.7 % (40.0-80.0) 01/26/18 14:04 Lymphocytes % 36.1 % (20.0-50.0) 01/26/18 14:04 Monocytes % 5.6 % (2.0-10.0) 01/26/18 14:04 Eosinophils % 1.4 % (0.0-5.0) 01/26/18 14:04 Basophils % 1.2 % (0.0-2.0) 01/26/18 14:04 Sodium 138 mEq/L (136-145) 01/26/18 14:04 Potassium 4.7 mEq/L (3.5-5.1) 01/26/18 14:04 Chloride 109 mEq/L (98-107) H 01/26/18 14:04 Carbon Dioxide 16.5 mEq/L (21.0-31.0) L 01/26/18 14:04 Anion Gap 17.2 (7.0-16.0) H 01/26/18 14:04 BUN 35 mg/dL (7-25) H 01/26/18 14:04 Creatinine 1.8 mg/dL (0.6-1.2) H 01/26/18 14:04 Est GFR ( Amer) TNP 01/26/18 14:04 Est GFR (Non-Af Amer) TNP 01/26/18 14:04 BUN/Creatinine Ratio 19.4 01/26/18 14:04 Glucose 92 mg/dL (70-105) 01/26/18 14:04 Hemoglobin A1c % 5.4 % (4.0-6.0) 01/26/18 14:04 Calcium 9.9 mg/dL (8.6-10.3) 01/26/18 14:04 Total Bilirubin 0.6 mg/dL (0.3-1.0) 01/26/18 14:04 AST 20 U/L (13-39) 01/26/18 14:04 ALT 21 U/L (7-52) 01/26/18 14:04 Alkaline Phosphatase 48 U/L (34-104) 01/26/18 14:04 Total Protein 7.4 gm/dL (6.0-8.3) 01/26/18 14:04 Albumin 4.0 gm/dL (3.7-5.3) 01/26/18 14:04 Globulin 3.4 gm/dL 01/26/18 14:04 Albumin/Globulin Ratio 1.2 (1.0-1.8) 01/26/18 14:04 Triglycerides 153 mg/dL (<150) H 01/26/18 14:04 Cholesterol 146 mg/dL (<200) 01/26/18 14:04 LDL Cholesterol Direct 93 mg/dL (75-193) 01/26/18 14:04 HDL Cholesterol 28 mg/dL (23-92) 01/26/18 14:04 TSH 2.89 uIU/ml (0.34-5.60) 01/26/18 14:04 Salicylates < 25.0 mg/L (30.0-100.0) L 01/26/18 14:04 Acetaminophen < 10.0 ug/mL (10.0-30.0) L 01/26/18 14:04 Ethyl Alcohol < 10 mg/dL (0-10) 01/26/18 14:04 RPR NONREACTIVE (NONREACTIVE) 01/26/18 14:04 - Physical Exam Vitals and I&O: Vital Signs Temp 97.7 F 02/02/18 05:20 Pulse 88 02/02/18 08:08 Resp 16 02/02/18 07:15 BP 136/85 02/02/18 08:08 Pulse Ox 97 02/02/18 07:15 Intake & Output 02/01/18 02/02/18 02/02/18 18:59 06:59 18:59 Intake Total 1830 Balance 1830 Intake: Oral 1830 Other: # Voids 2 # Bowel Movements 0 Active Medications: Current Medications Acetaminophen (Tylenol) 650 mg PO Q4HR PRN PRN Reason: Mild Pain / Temp above 100 Stop: 03/27/18 21:13 Al Hydrox/Mg Hydrox/Simethicone (Maalox) 30 ml PO Q6HR PRN PRN Reason: Upset Stomach / Indigestion Stop: 03/27/18 21:11 Albuterol Sulfate (Albuterol 2.5mg/3ml Neb Ud) 2.5 mg HHN Q6HRT PRN PRN Reason: WHEEZING AND SOB Stop: 03/27/18 21:11 Amlodipine Besylate (Norvasc) 10 mg PO DAILY [facility] Stop: 03/28/18 08:59 Last Admin: 02/02/18 08:08 Dose: 10 mg Diphenhydramine HCl (Benadryl) 25 mg PO Q6H PRN PRN Reason: Agitation Stop: 04/01/18 19:27 Last Admin: 02/02/18 08:07 Dose: 25 mg Divalproex Sodium (Depakote Dr) 250 mg PO TID [facility] PRN Reason: Protocol Stop: 04/03/18 13:59 Last Admin: 02/02/18 14:16 Dose: 250 mg Docusate Sodium (Colace) 100 mg PO BID [facility] Stop: 03/28/18 08:59 Last Admin: 02/02/18 16:37 Dose: Not Given Famotidine (Pepcid) 20 mg PO BID [facility] Stop: 03/28/18 08:59 Last Admin: 02/02/18 16:37 Dose: Not Given Haloperidol (Haldol) 2 mg PO Q6HR PRN; Protocol PRN Reason: Agitation Stop: 04/02/18 00:00 Last Admin: 02/02/18 08:08 Dose: 2 mg Lactobacillus Rhamnosus (Culturelle 15b) 1 each PO DAILY E[facility] Stop: 03/28/18 08:59 Last Admin: 02/02/18 08:07 Dose: Not Given Lorazepam (Ativan) 0.5 mg PO Q4HR PRN; Protocol PRN Reason: Anxiety Stop: 02/25/18 21:13 Last Admin: 02/02/18 14:16 Dose: 0.5 mg Losartan Potassium (Cozaar) 50 mg PO DAILY ETHE[facility] Stop: 03/28/18 08:59 Last Admin: 02/02/18 08:08 Dose: 50 mg Magnesium Hydroxide (Milk Of Magnesia) 30 ml PO HS PRN PRN Reason: Constipation Stop: 03/27/18 21:11 Megestrol Acetate (Megace) 400 mg PO BID [facility] Stop: 03/28/18 08:59 Last Admin: 02/02/18 16:37 Dose: Not Given Metoprolol Tartrate (Lopressor) 50 mg PO BID [facility] Stop: 03/28/18 08:59 Last Admin: 02/02/18 16:37 Dose: Not Given Potassium Chloride (Klor-Con) 20 meq PO DAILY [facility] Stop: 03/28/18 08:59 Last Admin: 02/02/18 08:08 Dose: Not Given Quetiapine Fumarate (Seroquel) 25 mg PO BID ETHEL PRN Reason: Protocol Stop: 04/02/18 16:59 Last Admin: 02/02/18 16:37 Dose: Not Given Zolpidem Tartrate (Ambien) 5 mg PO HS PRN PRN Reason: Insomnia Stop: 03/27/18 21:13 Last Admin: 02/01/18 21:18 Dose: 5 mg Cardiovascular: Regular rate Lungs: Clear to auscultation - Procedures Procedures: Procedures Procedure Code Date OTHER GROUP THERAPY 94.44 05/10/15 RECREATIONAL THERAPY 93.81 12/31/07 Assessment/Plan - Problem List Patient Problems: All Active Problems INCREASED AGITATION, AGGRESSION/CONFUSIO (Acute) - Assessment Assessment: HTN Acute renal failure GERD SEIZURE MRSA COLONIZATION - Plan Plan: Follow up labs in am Continue current treatment Monitor BP Bactroban Pepcid Psych follow up Nutritional Asmnt/Malnutr-PDOC - Dietary Evaluation Malnutrition Findings (Please click <Entered> for more info): Nutritional Asmnt/Malnutrition Start: 01/31/18 18: 07 Text: Status: Complete Freq: Document 01/31/18 18:07 STEVEChris (Rec: 01/31/18 18:20 [email or web address]) Nutritional Asmnt/Malnutrition Patient General Information Nutritional Screening Moderate Risk Diagnosis psychosis Pertinent Medical Hx/Surgical Hx HTN, seisure, GERD Subjective Information Pt seen sleepy in philly-chair. Per [employer] WORKER, pt was impulsive and aggressive this morning and received emergency shot. Pt usually eats well independently. Per EMR PO intake 25-75%, varied depend on mental status. Current Diet Order/ Nutrition Support DANNI Pertinent Medications colace, cultrelle, megace, kcl , seroquel Pertinent Labs 01/26 cl 109, BUN 35, Cr 1.8, glucose 92, A1c 5.4 Nutritional Hx/Data Height 1.68 m Height (Calculated Centimeters) 167.6 Current Weight (lbs) 65.771 kg Weight (Calculated Kilograms) 65.8 Weight (Calculated Grams) 22133.9 [place] Body Weight 130 Body Mass Index (BMI) 23.3 Weight Status Approriate GI Symptoms GI Symptoms None Last BM none Difficult in: None Skin Integrity/Comment: intact Current %PO Fair (50-74%) Estimated Nutritional Goals BEE in Kcals: Using Current wt Calories/Kcals/Kg 25-30 Kcals Calculated 1490-3186 Protein: Using Current wt Protein g/k Protein Calculated 66 Fluid: ml 1650-1980ml (1ml/kcal) Nutritional Problem No current Nutrition Prob Problem n/A Malnutrition Alert Protein-Calorie Malnutrition N/A Is there a minimum of two criteria No selected? Query Text:Check all the applicable criteria. A minimum of two criteria are recommended for diagnosis of either severe or non-severe malnutrition. Intervention/Recommendation Comments 1. Continue with current diet as ordered. 2. Monitor PO intake, wt, labs and skin integrity 3. F/U as low risk in 7 days, 02/07 Expected Outcomes/Goals Expected Outcomes/Goals 1. PO intake to meet at least 75% of nutritional needs. 2. Wt stability, skin to remain intact, labs to approach WNL.
[2018-02-03] MEDS: Lactobacillus Rhamnosus GG 15 Billion CFU CAP.SPRINK PO SCH (08:01)
[2018-02-03] MEDS: Multivitamin w/ Minerals Tab PO SCH (08:01)
[2018-02-03] MEDS: Potassium Chloride 20 mEq ER Tab PO SCH (08:01)
[2018-02-03] MEDS ORDERED: Haloperidol Lactate 5 mg/mL 1mL Vial ONE (10:52)
[2018-02-03] MEDS ORDERED: Haloperidol Lactate 5 mg/mL 1mL Vial IM STA (11:03)
== END 2018-02-03 17:25 | DRG 885 ==
LOC: ER 13:45 → GERO2 15:54
PROVIDERS: ADMIT Psychiatry & Neurology Psychiatry; ATTEND Psychiatry & Neurology Psychiatry
DX: F25.9 Schizoaffective disorder, unspecified (principal); N17.9 Acute kidney failure, unspecified; F03.91 Unspecified dementia, unspecified severity, with behavioral disturbance; I10 Essential (primary) hypertension; G40.909 Epilepsy, unspecified, not intractable, without status epilepticus; E78.5 Hyperlipidemia, unspecified; M19.90 Unspecified osteoarthritis, unspecified site; Z53.29 Procedure and treatment not carried out because of patient's decision for other reasons; I25.10 Atherosclerotic heart disease of native coronary artery without angina pectoris; R45.87 Impulsiveness; E86.0 Dehydration; K21.9 Gastro-esophageal reflux disease without esophagitis; F31.9 Bipolar disorder, unspecified; F29 Unspecified psychosis not due to a substance or known physiological condition; Z79.899 Other long term (current) drug therapy; Z88.0 Allergy status to penicillin; Z22.322 Carrier or suspected carrier of Methicillin resistant Staphylococcus aureus
CPT/HCPCS: 36415-UA; 80053-TC; 80061-TC; 80320-TC; 80329-TC; 83036-90; 84443-TC; 85025-TC; 86592-TC; 93005; 94760; J1200; J1630; Z7610

== ENCOUNTER 2018-12-19 05:00 | Inpatient (IN) | payer MEDICARE, OTHER ==
[2018-12-19] MEDS ORDERED: Ipratropium Neb 0.5 mg/2.5 mL UD HHN PRN (06:48)
[2018-12-19] MEDS ORDERED: Diltiazem 5 mg/mL 5mL Vial IVP STA (06:49)
[2018-12-19 06:55] VITALS: BP 127/83
[2018-12-19 07:11] LABS: % EOSINOPHILS 0.6 % (0.0-5.0); % LYMPHOCYTES 17.5 % (20.0-50.0); % MONOCYTES 7.9 % (2.0-10.0); EOSINOPHILE ABSOLUTE 0.1 Th/cmm (0.1-0.4); HEMATOCRIT 38.2 % (41.0-60); HEMOGLOBIN 12.9 gm/dL (12-16); LYMPHOCYTE ABSOLUTE 1.7 Th/cmm (1.5-3.0); MEAN CELL VOLUME 90.7 fl (81-100); MEAN CORPUSCULAR HEMOGLOBIN 30.6 pg (27.0-31.0); MEAN CORPUSCULAR HGB CONC 33.8 pg (28.0-36.0); MEAN PLATELET VOLUME 8.3 fl; MONOCYTE ABSOLUTE 0.8 Th/cmm (0.3-1.0); NEUTROPHILE ABSOLUTE 7.2 Th/cmm (1.8-8.0); PLATELET COUNT 322 Th/cmm (150-400); RED BLOOD COUNT 4.22 Mil/cmm (3.80-5.20); RED CELL DISTRIBUTION WIDTH 14.1 % (11.5-20.0); WHITE BLOOD COUNT 9.8 Th/cmm (4.8-10.8)
[2018-12-19 07:30] LABS: ALB/GLOB RATIO 1.5 (1.0-1.8); ALBUMIN 3.8 gm/dL (3.7-5.3); ALKALINE PHOSPHATASE 48 U/L (34-104); ANION GAP 13.8 (7.0-16.0); BILIRUBIN,TOTAL 0.3 mg/dL (0.3-1.0); BUN - UREA NITROGEN 29 mg/dL (7-25); CALCIUM SERUM 9.4 mg/dL (8.6-10.3); CARBON DIOXIDE 21.8 mEq/L (21.0-31.0); CHLORIDE 105 mEq/L (98-107); CREATININE - SERUM 1.5 mg/dL (0.6-1.2); GLUCOSE 133 mg/dL (70-105); POTASSIUM SERUM 4.6 mEq/L (3.5-5.1); SGOT 18 U/L (13-39); SGPT/ALT 15 U/L (7-52); SODIUM SERUM 136 mEq/L (136-145); TOTAL PROTEIN,SERUM 6.4 gm/dL (6.0-8.3)
[2018-12-19] MEDS: Sodium Chloride 0.9% 1,000 ML IV SCH (08:06)
[2018-12-19] MEDS: Ipratropium Neb 0.5 mg/2.5 mL UD HHN SCH ×5 (08:13→23:41)
--- NOTE | 2018-12-19 08:22 | Diagnostic Imaging Report ---
Chest x-ray single view History: Congestion Comparison: 12/12/2018 The heart size is normal. No focal pulmonary parenchymal processes. No hilar or mediastinal abnormalities. Impression: No acute abnormalities.
[2018-12-19] MEDS ORDERED: Diltiazem 5 mg/mL 5mL Vial IVP PRN (13:56)
--- NOTE | 2018-12-19 14:24 | General Progress Note ---
Subjective - Review of Systems Service Date: 12/19/18 Subjective: Patient complaining of palpitation has atrial fibrillation with rapid ventricular response Objective - Results Result Diagrams: 12/19/18 07:00 12/19/18 07:00 Recent Labs: Laboratory Last Values WBC 9.8 Th/cmm (4.8-10.8) 12/19/18 07:00 RBC 4.22 Mil/cmm (3.80-5.20) 12/19/18 07:00 Hgb 12.9 gm/dL (12-16) 12/19/18 07:00 Hct 38.2 % (41.0-60) L 12/19/18 07:00 MCV 90.7 fl (81-100) 12/19/18 07:00 MCH 30.6 pg (27.0-31.0) 12/19/18 07:00 MCHC Differential 33.8 pg (28.0-36.0) 12/19/18 07:00 RDW 14.1 % (11.5-20.0) 12/19/18 07:00 Plt Count 322 Th/cmm (150-400) 12/19/18 07:00 MPV 8.3 fl 12/19/18 07:00 Neutrophils % 74.0 % (40.0-80.0) 12/19/18 07:00 Lymphocytes % 17.5 % (20.0-50.0) L 12/19/18 07:00 Monocytes % 7.9 % (2.0-10.0) 12/19/18 07:00 Eosinophils % 0.6 % (0.0-5.0) 12/19/18 07:00 Basophils % 0.0 % (0.0-2.0) 12/19/18 07:00 Sodium 136 mEq/L (136-145) 12/19/18 07:00 Potassium 4.6 mEq/L (3.5-5.1) 12/19/18 07:00 Chloride 105 mEq/L (98-107) 12/19/18 07:00 Carbon Dioxide 21.8 mEq/L (21.0-31.0) 12/19/18 07:00 Anion Gap 13.8 (7.0-16.0) 12/19/18 07:00 BUN 29 mg/dL (7-25) H 12/19/18 07:00 Creatinine 1.5 mg/dL (0.6-1.2) H 12/19/18 07:00 Est GFR ( Amer) TNP 12/19/18 07:00 Est GFR (Non-Af Amer) TNP 12/19/18 07:00 BUN/Creatinine Ratio 19.3 12/19/18 07:00 Glucose 133 mg/dL (70-105) H 12/19/18 07:00 Calcium 9.4 mg/dL (8.6-10.3) 12/19/18 07:00 Total Bilirubin 0.3 mg/dL (0.3-1.0) 12/19/18 07:00 AST 18 U/L (13-39) 12/19/18 07:00 ALT 15 U/L (7-52) 12/19/18 07:00 Alkaline Phosphatase 48 U/L (34-104) 12/19/18 07:00 Total Protein 6.4 gm/dL (6.0-8.3) 12/19/18 07:00 Albumin 3.8 gm/dL (3.7-5.3) 12/19/18 07:00 Globulin 2.6 gm/dL 12/19/18 07:00 Albumin/Globulin Ratio 1.5 (1.0-1.8) 12/19/18 07:00 - Physical Exam Vitals and I&O: Vital Signs Temp 96.1 F 12/19/18 11:32 Pulse 109 12/19/18 11:32 Resp 18 12/19/18 11:32 BP 141/98 12/19/18 11:32 Pulse Ox 98 12/19/18 11:32 Intake & Output 12/18/18 12/19/18 12/19/18 18:59 06:59 18:59 Weight (lbs) 84.822 kg Other: Weight Source Bedscale Active Medications: Current Medications Diltiazem HCl (Cardizem) 20 mg IVP Q4H PRN PRN Reason: HR Greater than 130 per min Stop: 02/17/19 13:55 Diltiazem HCl (Cardizem) 60 mg PO Q6HR [facility] Stop: 02/17/19 17:59 Diltiazem HCl (Cardizem) 20 mg IVP NOW ONE Stop: 12/19/18 15:01 Sodium Chloride (Nacl 0.9%) 1,000 mls @ 50 mls/hr IV .Q20H [facility] Stop: 02/17/19 06:59 Last Admin: 12/19/18 08:06 Dose: 50 mls/hr Ipratropium [place] (Atrovent Neb 0.5mg/2.5ml) 0.5 mg HHN Q4HRT [facility] Stop: 02/17/19 06:59 Last Admin: 12/19/18 11:07 Dose: 0.5 mg Ipratropium [place] (Atrovent Neb 0.5mg/2.5ml) 0.5 mg HHN Q4HRT PRN PRN Reason: Congestion Stop: 02/17/19 06:59 Rivaroxaban (Xarelto) 15 mg PO DAILY [facility] Stop: 02/18/19 08:59 General: Alert, No acute distress HEENT: Mucous membr. moist/pink Neck: Supple, JVD, +2 carotid pulse wo bruit (last) Cardiovascular: Systolic murmurs, Other Lungs: Clear to auscultation (atrial fibrillation), Normal air movement Abdomen: Bowel sounds Neurological: Normal speech, Strength at 5/5 X4 ext, Normal tone, Cranial nerves 3-12 NL, Reflexes 2+ - Procedures Procedures: Procedures Procedure Code Date OTHER GROUP THERAPY 94.44 05/10/15 RECREATIONAL THERAPY 93.81 12/31/07 Assessment/Plan - Assessment Assessment: Uncontrolled atrial fibrillation Diabetes mellitus type 2 Diabetic security states to Hypertension Hyperlipidemia Schizoaffective disorder - Plan Plan: Cardizem 20 mg IV push followed by Cardizem 60 mg by mouth every 6 hours Anticoagulation Echocardiogram
[2018-12-19] MEDS ORDERED: Diltiazem 5 mg/mL 5mL Vial IVP ONE (15:00)
--- NOTE | 2018-12-19 16:27 | History and Physical ---
History of Present Illness - HPI Chief Complaint: 73 y/o female patient was brought to ER due to complaints of palpitations. HPI: 73 y/o female patient was admitted to [facility] due to complaints of having palpitations. Patient has history of Diabetes, Uncontrolled Atrial fibrillation, Hyperlipidemia, Schizoaffective Disorder and Hypertension. Patient was diagnosed with Atrial fibrillation with rapid ventricular response. Patient was assessed by the ER and a complete workup was done. Patient will have a Rug Cleaner Helper consult and I will follow, treat and monitor patient. Patient will continue current treatment plan as ordered. Vital Signs: Last Vital Signs Temp 96.7 F 12/19/18 16:06 Pulse 80 12/19/18 16:06 Resp 18 12/19/18 16:06 BP 126/73 12/19/18 16:06 Pulse Ox 99 12/19/18 16:06 Past Medical History Cardiovascular: Report: HTN, Other (Atrial Fibrillation.) Pulmonary: Report: No Pertinent Hx (Schizoaffective disorder.) SENIOR QC TECHNICIAN: Report: Other GI: Report: No Pertinent Hx Psych: Report: Other (Schizoaffective disorder.) Musculoskeletal: Report: Weakness Rheumatologic: Report: No pertinent Hx Infectious Disease: Report: No Pertinent Hx Renal/: Report: No Pertinent Hx Endocrine: Report: Diabetes Dermatology: Report: No Pertinent Hx - Past Surgical History Past Surgical History: No pertinent Hx Family Medical History - Family Member Mother History Unknown: Yes Ethnicity: Unknown Living Status: Unknown Hx Family Congestive Heart Failure: (unknown) Hx Family Stroke: (unknown) Hx Family Diabetes: (unknown) Hx Family Seizures: (unknown) Hx Family Dementia: (unknown) Hx Family AIDS: (unknown) Hx Family HIV: No Hx Family COPD: (unknown) Hx Family Hepatitis: (unknown) Hx Family Psychiatric Problems: (unknown) Hx Family Tuberculosis: (unknown) Social History Smoke: No Alcohol: None Drugs: None Lives: Intermediate Domestic Violence: Negative Health Maintenance Health Maintenance: Other (see chart.) - Medications Home Medications: Home Medication Medication Instructions Recorded Type Magnesium Hydroxide [Milk of 30 ml PO HS PRN #0 [facility] 05/18/15 Rx Magnesia] Divalproex DR [Depakote DR] 250 mg PO TID 01/26/18 History Linaclotide [Linzess] 145 mcg PO DAILY 01/26/18 History Acetaminophen [Tylenol] 650 mg PO Q4HR PRN tab 02/03/18 Rx Al Hyd/Mg Hyd/Simethicone [Maalox] 30 ml PO Q6HR PRN #0 02/03/18 Rx Albuterol Nebulizer 2.5mg/3mL 2.5 mg IH Q6HR PRN #0 02/03/18 Rx [Albuterol Neb UD*] Diphenhydramine HCL [Benadryl] 25 mg PO Q6H PRN cap 02/03/18 Rx Docusate Sodium [Colace] 100 mg PO BID #0 02/03/18 Rx Haloperidol [Haldol*] 2 mg PO Q6HR PRN tab 02/03/18 Rx L.acidoph,Paracasei, B.lactis 1 each PO DAILY #0 02/03/18 Rx [Probiotic] Lorazepam [Ativan] 0.5 mg PO Q4HR PRN tab 02/03/18 Rx Losartan Potassium [Cozaar] 50 mg PO DAILY #0 02/03/18 Rx Megestrol Acetate [Megace] 10 ml PO BID #0 02/03/18 Rx Multivitamin w/ Minerals 1 tab PO DAILY #0 02/03/18 Rx [Theragran M] Potassium Chloride [Klor-Con M20] 1 tab PO DAILY #0 02/03/18 Rx QUEtiapine Fumarate [SEROquel] 25 mg PO BID tab 02/03/18 Rx Ranitidine HCl 150 mg PO BID #0 02/03/18 Rx Zolpidem Tartrate [Ambien] 5 mg PO HS PRN tab 02/03/18 Rx amLODIPine Besylate [Norvasc*] 10 mg PO DAILY #0 tab 02/03/18 Rx cloNIDine HCl [Catapres] 0.1 mg PO Q6H PRN #0 02/03/18 Rx Acetaminophen 2 tab PO Q4HR PRN 12/12/18 History Clonidine HCl [Catapres] 1 tab PO Q8HR 12/12/18 History Famotidine 20 mg PO DAILY 12/12/18 History Lactobacillus Acidophilus 1 cap PO DAILY 12/12/18 History [Acidophilus Lactobacilli] Magnesium Hydroxide [Milk of 30 ml PO PRN 12/12/18 History Magnesia] Metoprolol Tartrate [Lopressor] 50 mg PO DAILY 12/12/18 History Azithromycin [Zithromax] 500 mg PO DAILY tab 12/15/18 Rx Lactobacillus Rhamnosus GG 15B 1 each PO DAILY cap.eric 12/15/18 Rx [Culturelle 15B] - Allergies Allergies/Adverse Reactions: Allergies Allergy/AdvReac Type Severity Reaction Status Date / Time Penicillins Allergy Severe Verified 12/12/18 21:09 Review of Systems - Review of Systems Constitutional: Report: Weakness Eyes: Report: No Significant ENT: Report: No Significant Respiratory: Report: Other (congested.) Cardiovascular: Report: Palpitations Gastrointestinal: Report: No Significant Genitourinary: Report: No Significant Musculoskeletal: Report: Other Skin: Report: No Significant Neurological: Report: Weakness Physical Exam - Physical Exam HEENT: Report: Ears Nose Throat within normal limits Neck: Report: Within normal limits Cardiovascular Systems: Report: +s1/s2 noted, Regular, Rate and Rhythm Respiratory: Report: Other (congested.) Abdomen: Report: Non-tender to palpation Back: Report: Inspection of back is within normal limits. Extremities: Report: Non-tender to palpation. Skin: Report: Color of skin is within normal limits Neuro/Psych: Report: Mood affect is within normal limits - Lab Results All Lab Results last 24 hours: Laboratory Results - last 24 hr 12/19/18 12/19/18 07:00 07:00 WBC 9.8 RBC 4.22 Hgb 12.9 Hct 38.2 L MCV 90.7 MCH 30.6 MCHC Differential 33.8 RDW 14.1 Plt Count 322 MPV 8.3 Neutrophils % 74.0 Lymphocytes % 17.5 L Monocytes % 7.9 Eosinophils % 0.6 Basophils % 0.0 Sodium 136 Potassium 4.6 Chloride 105 Carbon Dioxide 21.8 Anion Gap 13.8 BUN 29 H Creatinine 1.5 H Est GFR ( Amer) TNP Est GFR (Non-Af Amer) TNP BUN/Creatinine Ratio 19.3 Glucose 133 H Calcium 9.4 Total Bilirubin 0.3 AST 18 ALT 15 Alkaline Phosphatase 48 Total Protein 6.4 Albumin 3.8 Globulin 2.6 Albumin/Globulin Ratio 1.5 - Assessment Assessment: Atrial fibrillation with rapid ventricular response. Diabetes. Uncontrolled Atrial fibrillation. Congested. Hyperlipidemia. Schizoaffective Disorder. Hypertension. - Plan Plan: Continuation of care. Monitor Vitals, Labs, Echocardiogram. Continue anticogulant med. Cardiology consult/followup. Continue present meds as directed. Monitor Diabetic diet. Fall precaution. Accu-checks twice daily, Continue DM meds as directed. Supportive care. Continue current treatment plan as ordered.
[2018-12-19] MEDS: Diltiazem 30 mg Tab PO SCH ×2 (18:22→23:59)
--- NOTE | 2018-12-19 22:29 | Consultation ---
DATE OF CONSULTATION: 12/19/[address] Hidalgo. HISTORY OF PRESENT ILLNESS: This 73-year-old female patient who is transferred from [facility]. The patient has atrial fibrillation with uncontrolled ventricular response and hence Cardiology consult was requested. PAST MEDICAL HISTORY: Hypertension, hyperlipidemia, psychosis. FAMILY HISTORY: Unremarkable. SOCIAL HISTORY: No history of smoking, alcohol abuse. ALLERGIES: No known allergies. PHYSICAL EXAMINATION: VITAL SIGNS: Blood pressure 130/80, pulse 70, respirations 20. HEAD: Normocephalic. No lumps or bumps. EYES: Pupils equal, reactive to light. Fundi show AV nicking, sclerae white, conjunctivae pink. NECK: Carotid 2+. Normal upstroke. JVD flat. Thyroid not palpable. Lymph nodes not palpable. CHEST: Shows increased AP diameter. No kyphosis, scoliosis. LUNGS: Bilateral bronchovesicular breath sounds. HEART: PMI fifth intercostal space with lateral to midclavicular line. S1, S2. No S3, S4, soft systolic murmur. ABDOMEN: Soft. Liver, spleen not palpable. No organomegaly. Bowel sounds active. NEUROLOGIC: Unremarkable. EXTREMITIES: Peripheral pulses 2+. No pedal edema. CLINICAL IMPRESSION: 1. Atrial fibrillation with rapid ventricular response. 2. Schizoaffective disorder, hypertension, hyperlipidemia. 3. Diabetes. 4. Chronic kidney disease, stage 2. PLAN: The patient to have anticoagulation. We will give Cardizem IV push to control the heart rate followed by oral Cardizem and then echocardiogram. The patient to have anticoagulation in view of atrial fibrillation. JOB# [id number]
[2018-12-20] MEDS: Ipratropium Neb 0.5 mg/2.5 mL UD HHN SCH ×6 (02:06→23:01)
[2018-12-20] MEDS: Sodium Chloride 0.9% 1,000 ML IV SCH ×2 (04:05→22:54)
[2018-12-20] MEDS: Diltiazem 30 mg Tab PO SCH ×4 (05:19→23:49)
[2018-12-21] MEDS: Ipratropium Neb 0.5 mg/2.5 mL UD HHN SCH ×6 (02:42→22:39)
[2018-12-21] MEDS: Diltiazem 30 mg Tab PO SCH ×3 (05:06→18:06)
--- NOTE | 2018-12-21 10:01 | Consultation ---
DATE OF CONSULTATION: 12/21/2018 REQUESTING PHYSICIAN: Dr. Hidalgo. REASON FOR CONSULTATION: Nausea and vomiting. Thank you for asking me to see this patient in consultation. HISTORY OF PRESENT ILLNESS: This is a 73-year-old female who was transferred from [facility] with complaints of palpitation and was found to have atrial fibrillation with rapid ventricular response. During that time period the patient was started on diltiazem IV as well as she has been on Xarelto. Last night, the patient was noted to have a large amount of vomiting, which was nonbloody per report. The patient felt better after one dose of Zofran and in fact even ate her morning breakfast today completely without any residual major nausea. PAST MEDICAL HISTORY: Schizoaffective disorder, hypertension, diabetes, atrial fibrillation. SOCIAL HISTORY: Denies any tobacco, alcohol or drugs. FAMILY HISTORY: Noncontributory for GI disease. REVIEW OF SYSTEMS: Positive for nausea. All other 12-point systems are negative. PHYSICAL EXAMINATION: VITAL SIGNS: Temperature of 99.7, pulse 80, respiratory rate of 20, blood pressure is 153/85. GENERAL: She is in no acute distress. HEENT: Normocephalic, atraumatic. PERRL positive. LUNGS: Clear bilaterally. No wheezes, rales or rhonchi. HEART: Regular rate and rhythm, normal S1, S2. ABDOMEN: Soft, nontender. Bowel sounds are positive. EXTREMITIES: Show no lower extremity edema. PSYCHIATRIC: Alert, oriented to place. NEUROLOGIC: Grossly intact. LABORATORY DATA: Sodium 136, potassium 4.6, BUN 29, creatinine 1.5. Hemoglobin of 12.9. ASSESSMENT: This is a 73-year-old female with history of schizoaffective disorder and atrial fibrillation. Gastroenterology has been consulted for nausea and vomiting. 1. Intractable nausea and vomiting. 2. Bilious versus dark emesis. 3. Atrial fibrillation with rapid ventricular response. 4. History of Xarelto use. PLAN: Recommend supportive care and management. I have added IV Zofran around the clock and give p.r.n. for any nausea as well as IV Protonix to assist. If the patient is having recurrent episodes of nausea and vomiting, then would recommend an upper endoscopy for further evaluation. Suspect she had either a transient gastroparesis or nausea from either erosive esophagitis or medication effect with diltiazem. We will continue to monitor alongside with you. Thank you for allowing us to participate in this patient's care. JOB# [id number]
--- NOTE | 2018-12-21 11:12 | Internal Medicine Prog Note ---
Internal Medicine Subjective - Subjective Patient seen and examined:: chart reviewed Patient is:: awake (awake denies nausea, denie cp ) Per staff patient has:: no adverse event Internal Medicine Objective - Results Result Diagrams: 12/19/18 07:00 12/19/18 07:00 Recent Labs: Laboratory Last Values WBC 9.8 Th/cmm (4.8-10.8) 12/19/18 07:00 RBC 4.22 Mil/cmm (3.80-5.20) 12/19/18 07:00 Hgb 12.9 gm/dL (12-16) 12/19/18 07:00 Hct 38.2 % (41.0-60) L 12/19/18 07:00 MCV 90.7 fl (81-100) 12/19/18 07:00 MCH 30.6 pg (27.0-31.0) 12/19/18 07:00 MCHC Differential 33.8 pg (28.0-36.0) 12/19/18 07:00 RDW 14.1 % (11.5-20.0) 12/19/18 07:00 Plt Count 322 Th/cmm (150-400) 12/19/18 07:00 MPV 8.3 fl 12/19/18 07:00 Neutrophils % 74.0 % (40.0-80.0) 12/19/18 07:00 Lymphocytes % 17.5 % (20.0-50.0) L 12/19/18 07:00 Monocytes % 7.9 % (2.0-10.0) 12/19/18 07:00 Eosinophils % 0.6 % (0.0-5.0) 12/19/18 07:00 Basophils % 0.0 % (0.0-2.0) 12/19/18 07:00 Sodium 136 mEq/L (136-145) 12/19/18 07:00 Potassium 4.6 mEq/L (3.5-5.1) 12/19/18 07:00 Chloride 105 mEq/L (98-107) 12/19/18 07:00 Carbon Dioxide 21.8 mEq/L (21.0-31.0) 12/19/18 07:00 Anion Gap 13.8 (7.0-16.0) 12/19/18 07:00 BUN 29 mg/dL (7-25) H 12/19/18 07:00 Creatinine 1.5 mg/dL (0.6-1.2) H 12/19/18 07:00 Est GFR ( Amer) TNP 12/19/18 07:00 Est GFR (Non-Af Amer) TNP 12/19/18 07:00 BUN/Creatinine Ratio 19.3 12/19/18 07:00 Glucose 133 mg/dL (70-105) H 12/19/18 07:00 Calcium 9.4 mg/dL (8.6-10.3) 12/19/18 07:00 Total Bilirubin 0.3 mg/dL (0.3-1.0) 12/19/18 07:00 AST 18 U/L (13-39) 12/19/18 07:00 ALT 15 U/L (7-52) 12/19/18 07:00 Alkaline Phosphatase 48 U/L (34-104) 12/19/18 07:00 Total Protein 6.4 gm/dL (6.0-8.3) 12/19/18 07:00 Albumin 3.8 gm/dL (3.7-5.3) 12/19/18 07:00 Globulin 2.6 gm/dL 12/19/18 07:00 Albumin/Globulin Ratio 1.5 (1.0-1.8) 12/19/18 07:00 - Physical Exam Vitals and I&O: Vital Signs Temp 99.7 F 12/21/18 04:00 Pulse 98 12/21/18 10:49 Resp 16 12/21/18 10:49 BP 153/85 12/21/18 04:00 Pulse Ox 94 12/21/18 10:49 Intake & Output 12/20/18 12/21/18 12/21/18 18:59 06:59 18:59 Intake Total 300 1060.833 Balance 300 1060.833 Weight (lbs) 86.636 kg 86.545 kg Intake: Intake, IV Amount 940.833 Sodium Chloride 0.9% 1, 940.833 000 ml @ 50 mls/hr IV . Q20H [facility] Rx#:[id number] Oral 300 120 Other: # Voids 2 # Bowel Movements 0 Weight Source Bedscale Bedscale Active Medications: Current Medications Diltiazem HCl (Cardizem) 20 mg IVP Q4H PRN PRN Reason: HR Greater than 130 per min Stop: 02/17/19 13:55 Diltiazem HCl (Cardizem) 60 mg PO Q6HR [facility] Stop: 02/17/19 17:59 Last Admin: 12/21/18 05:06 Dose: 60 mg Sodium Chloride (Nacl 0.9%) 1,000 mls @ 50 mls/hr IV .Q20H [facility] Stop: 02/17/19 06:59 Last Admin: 12/20/18 22:54 Dose: 50 mls/hr Ipratropium [place] (Atrovent Neb 0.5mg/2.5ml) 0.5 mg HHN Q4HRT [facility] Stop: 02/17/19 06:59 Last Admin: 12/21/18 10:47 Dose: 0.5 mg Ipratropium [place] (Atrovent Neb 0.5mg/2.5ml) 0.5 mg HHN Q4HRT PRN PRN Reason: Congestion Stop: 02/17/19 06:59 Ondansetron HCl (Zofran) 4 mg IV Q8H PRN PRN Reason: Nausea / Vomiting Stop: 02/19/19 08:07 Last Admin: 12/21/18 08:35 Dose: 4 mg Pantoprazole Sodium (Protonix) 40 mg IVP DAILY [facility] Stop: 02/19/19 09:44 Rivaroxaban (Xarelto) 15 mg PO DAILY [facility] Stop: 02/18/19 08:59 Last Admin: 12/21/18 08:37 Dose: 15 mg General: weak, alert HEENT: NC/AT Neck: Supple Lungs: CTAB Cardiovascular: RRR, Normal S1, Normal S2 Abdomen: soft Extremities: clear Neurological: no change - Procedures Procedures: Procedures Procedure Code Date OTHER GROUP THERAPY 94.44 05/10/15 RECREATIONAL THERAPY 93.81 12/31/07 Internal Medicine Assmt/Plan - Assessment Assessment: Atrial fibrillation with rapid ventricular response. Diabetes. Uncontrolled Atrial fibrillation. Congested. Hyperlipidemia. Schizoaffective Disorder. Hypertension. - Plan Plan: Continuation of care. Monitor Vitals, Labs, Echocardiogram. Continue anticogulant med. Cardiology consult/followup. Continue present meds as directed. Monitor Diabetic diet. Fall precaution. Accu-checks twice daily, Continue DM meds as directed. Supportive care. Continue current treatment plan as ordered.
[2018-12-21] MEDS ORDERED: POLYETHYLENE GLYCOL 3350 17 GM PACK PO ONE (18:02)
[2018-12-21] MEDS: Sodium Chloride 0.9% 1,000 ML IV SCH (19:08)
[2018-12-22] MEDS: Diltiazem 30 mg Tab PO SCH ×4 (00:21→17:11)
[2018-12-22] MEDS: Ipratropium Neb 0.5 mg/2.5 mL UD HHN SCH ×4 (02:41→14:23)
[2018-12-22 05:53] LABS: % BASOPHILS 0.2 % (0.0-2.0); % EOSINOPHILS 2.6 % (0.0-5.0); % MONOCYTES 3.8 % (2.0-10.0); % NEUTROPHILS 67.4 % (40.0-80.0); EOSINOPHILE ABSOLUTE 0.3 Th/cmm (0.1-0.4); HEMATOCRIT 36.1 % (41.0-60); HEMOGLOBIN 11.9 gm/dL (12-16); LYMPHOCYTE ABSOLUTE 2.7 Th/cmm (1.5-3.0); MEAN CELL VOLUME 92.5 fl (81-100); MEAN CORPUSCULAR HEMOGLOBIN 30.6 pg (27.0-31.0); MEAN CORPUSCULAR HGB CONC 33.1 pg (28.0-36.0); MEAN PLATELET VOLUME 8.2 fl; MONOCYTE ABSOLUTE 0.4 Th/cmm (0.3-1.0); PLATELET COUNT 332 Th/cmm (150-400); RED CELL DISTRIBUTION WIDTH 13.6 % (11.5-20.0); WHITE BLOOD COUNT 10.4 Th/cmm (4.8-10.8)
[2018-12-22 06:10] LABS: ANION GAP 11.7 (7.0-16.0); BUN - UREA NITROGEN 16 mg/dL (7-25); CALCIUM SERUM 8.5 mg/dL (8.6-10.3); CARBON DIOXIDE 23.2 mEq/L (21.0-31.0); CHLORIDE 106 mEq/L (98-107); CREATININE - SERUM 1.3 mg/dL (0.6-1.2); GLUCOSE 113 mg/dL (70-105); POTASSIUM SERUM 3.9 mEq/L (3.5-5.1); SODIUM SERUM 137 mEq/L (136-145)
--- NOTE | 2018-12-22 08:14 | Diagnostic Imaging Report ---
Exam: KUB HISTORY: Abdominal distention. Findings: Supine portable examination the abdomen at 1036 hours reviewed. The study demonstrates fecal impaction the right colon. Bony structures are unremarkable for degenerative changes. There is evidence for previous cholecystectomy. Calcification in the left upper quadrant most likely represent splenic granulomata. IMPRESSION: Right colon fecal impaction.
--- NOTE | 2018-12-22 11:37 | General Progress Note ---
Subjective - Review of Systems Service Date: 12/22/18 Subjective: Patient complaining of palpitation has atrial fibrillation with rapid ventricular response Objective - Results Result Diagrams: 12/22/18 05:40 12/22/18 05:40 Recent Labs: Laboratory Last Values WBC 10.4 Th/cmm (4.8-10.8) 12/22/18 05:40 RBC 3.90 Mil/cmm (3.80-5.20) 12/22/18 05:40 Hgb 11.9 gm/dL (12-16) L 12/22/18 05:40 Hct 36.1 % (41.0-60) L 12/22/18 05:40 MCV 92.5 fl (81-100) 12/22/18 05:40 MCH 30.6 pg (27.0-31.0) 12/22/18 05:40 MCHC Differential 33.1 pg (28.0-36.0) 12/22/18 05:40 RDW 13.6 % (11.5-20.0) 12/22/18 05:40 Plt Count 332 Th/cmm (150-400) 12/22/18 05:40 MPV 8.2 fl 12/22/18 05:40 Neutrophils % 67.4 % (40.0-80.0) 12/22/18 05:40 Lymphocytes % 26.0 % (20.0-50.0) 12/22/18 05:40 Monocytes % 3.8 % (2.0-10.0) 12/22/18 05:40 Eosinophils % 2.6 % (0.0-5.0) 12/22/18 05:40 Basophils % 0.2 % (0.0-2.0) 12/22/18 05:40 Sodium 137 mEq/L (136-145) 12/22/18 05:40 Potassium 3.9 mEq/L (3.5-5.1) 12/22/18 05:40 Chloride 106 mEq/L (98-107) 12/22/18 05:40 Carbon Dioxide 23.2 mEq/L (21.0-31.0) 12/22/18 05:40 Anion Gap 11.7 (7.0-16.0) 12/22/18 05:40 BUN 16 mg/dL (7-25) 12/22/18 05:40 Creatinine 1.3 mg/dL (0.6-1.2) H 12/22/18 05:40 Est GFR ( Amer) TNP 12/22/18 05:40 Est GFR (Non-Af Amer) TNP 12/22/18 05:40 BUN/Creatinine Ratio 12.3 12/22/18 05:40 Glucose 113 mg/dL (70-105) H 12/22/18 05:40 Calcium 8.5 mg/dL (8.6-10.3) L 12/22/18 05:40 Total Bilirubin 0.3 mg/dL (0.3-1.0) 12/19/18 07:00 AST 18 U/L (13-39) 12/19/18 07:00 ALT 15 U/L (7-52) 12/19/18 07:00 Alkaline Phosphatase 48 U/L (34-104) 12/19/18 07:00 Total Protein 6.4 gm/dL (6.0-8.3) 12/19/18 07:00 Albumin 3.8 gm/dL (3.7-5.3) 12/19/18 07:00 Globulin 2.6 gm/dL 12/19/18 07:00 Albumin/Globulin Ratio 1.5 (1.0-1.8) 12/19/18 07:00 - Physical Exam Vitals and I&O: Vital Signs Temp 97.4 F 12/22/18 08:00 Pulse 86 12/22/18 11:05 Resp 18 12/22/18 11:05 BP 169/74 12/22/18 08:00 Pulse Ox 96 12/22/18 11:05 Intake & Output 12/21/18 12/22/18 12/22/18 18:59 06:59 18:59 Intake Total 1500 120 Balance 1500 120 Weight (lbs) 86.183 kg 86.183 kg Intake: Intake, IV Amount 1000 Sodium Chloride 0.9% 1, 1000 000 ml @ 50 mls/hr IV . Q20H [facility] Rx#:[id number] Oral 500 120 Other: # Voids 3 2 # Bowel Movements 0 2 Weight Source Bedscale Bedscale Active Medications: Current Medications Diltiazem HCl (Cardizem) 20 mg IVP Q4H PRN PRN Reason: HR Greater than 130 per min Stop: 02/17/19 13:55 Diltiazem HCl (Cardizem) 60 mg PO Q6HR [facility] Stop: 02/17/19 17:59 Last Admin: 12/22/18 05:19 Dose: 60 mg Sodium Chloride (Nacl 0.9%) 1,000 mls @ 50 mls/hr IV .Q20H [facility] Stop: 02/17/19 06:59 Last Admin: 12/21/18 19:08 Dose: 50 mls/hr Ipratropium [place] (Atrovent Neb 0.5mg/2.5ml) 0.5 mg HHN Q4HRT [facility] Stop: 02/17/19 06:59 Last Admin: 12/22/18 10:50 Dose: 0.5 mg Ipratropium [place] (Atrovent Neb 0.5mg/2.5ml) 0.5 mg HHN Q4HRT PRN PRN Reason: Congestion Stop: 02/17/19 06:59 Ondansetron HCl (Zofran) 4 mg IV Q8H PRN PRN Reason: Nausea / Vomiting Stop: 02/19/19 08:07 Last Admin: 12/21/18 08:35 Dose: 4 mg Pantoprazole Sodium (Protonix) 40 mg IVP DAILY [facility] Stop: 02/19/19 09:44 Last Admin: 12/22/18 08:59 Dose: 40 mg Rivaroxaban (Xarelto) 15 mg PO DAILY [facility] Stop: 02/18/19 08:59 Last Admin: 12/22/18 08:56 Dose: 15 mg General: Alert, No acute distress HEENT: Mucous membr. moist/pink Neck: Supple, JVD, +2 carotid pulse wo bruit (last) Cardiovascular: Systolic murmurs, Other Lungs: Clear to auscultation (atrial fibrillation), Normal air movement Abdomen: Bowel sounds Neurological: Normal speech, Strength at 5/5 X4 ext, Normal tone, Cranial nerves 3-12 NL, Reflexes 2+ - Procedures Procedures: Procedures Procedure Code Date OTHER GROUP THERAPY 94.44 05/10/15 RECREATIONAL THERAPY 93.81 12/31/07 Assessment/Plan - Assessment Assessment: Uncontrolled atrial fibrillation Diabetes mellitus type 2 Diabetic Hypertension Hyperlipidemia Schizoaffective disorder - Plan Plan: Cardizem 20 mg IV push followed by Cardizem 60 mg by mouth every 6 hours Anticoagulation Echocardiogram
--- NOTE | 2018-12-22 12:33 | Cardiology ---
12/20/[address] Hidalgo. M-MODE ECHOCARDIOGRAM: Mitral valve, anterior leaflet of mitral valve shows normal excursion, EF velocity. Posterior leaflet of the mitral valve shows normal excursion. Left ventricular posterior wall shows increased thickness, normal excursion. Interventricular septum shows increased thickness, normal excursion, hypertrophy of the left ventricle, ejection fraction 75. Left atrium normal. Aortic root shows normal dimension, normal excursion of aortic leaflets. CONCLUSION: Hypertrophy of the left ventricle, ejection fraction 75%. 2D ECHO: Long axis view showed normal sized left ventricle with hypertrophy of the left ventricle. Left atrium normal. Aortic root shows normal dimension, normal excursion of aortic leaflets. Short axis view of mitral valve normal. Short axis view of aortic valve normal. Apical four chamber view shows normal sized left ventricle with hypertrophy of the left ventricle. Left atrium normal. Right ventricular cavity, right atrium normal, no pericardial effusion. CONCLUSION: Hypertrophy of the left ventricle, ejection fraction 75%. Doppler study shows trace tricuspid regurgitation, trace pulmonary regurgitation, mild mitral regurgitation. Right ventricular systolic pressure 29 mmHg. [facility]# [id number]
[2018-12-22] MEDS: Sodium Chloride 0.9% 1,000 ML IV SCH (14:53)
--- NOTE | 2018-12-22 15:10 | Internal Medicine Prog Note ---
Internal Medicine Subjective - Subjective Service Date: 12/22/18 Patient seen and examined:: with staff, chart reviewed Patient is:: awake (awake denies nausea, denie cp ), verbal, talking Patient Complaints of:: congestion, other Per staff patient has:: no adverse event, no episodes of fall Internal Medicine Objective - Results Result Diagrams: 12/22/18 05:40 12/22/18 05:40 Recent Labs: Laboratory Last Values WBC 10.4 Th/cmm (4.8-10.8) 12/22/18 05:40 RBC 3.90 Mil/cmm (3.80-5.20) 12/22/18 05:40 Hgb 11.9 gm/dL (12-16) L 12/22/18 05:40 Hct 36.1 % (41.0-60) L 12/22/18 05:40 MCV 92.5 fl (81-100) 12/22/18 05:40 MCH 30.6 pg (27.0-31.0) 12/22/18 05:40 MCHC Differential 33.1 pg (28.0-36.0) 12/22/18 05:40 RDW 13.6 % (11.5-20.0) 12/22/18 05:40 Plt Count 332 Th/cmm (150-400) 12/22/18 05:40 MPV 8.2 fl 12/22/18 05:40 Neutrophils % 67.4 % (40.0-80.0) 12/22/18 05:40 Lymphocytes % 26.0 % (20.0-50.0) 12/22/18 05:40 Monocytes % 3.8 % (2.0-10.0) 12/22/18 05:40 Eosinophils % 2.6 % (0.0-5.0) 12/22/18 05:40 Basophils % 0.2 % (0.0-2.0) 12/22/18 05:40 Sodium 137 mEq/L (136-145) 12/22/18 05:40 Potassium 3.9 mEq/L (3.5-5.1) 12/22/18 05:40 Chloride 106 mEq/L (98-107) 12/22/18 05:40 Carbon Dioxide 23.2 mEq/L (21.0-31.0) 12/22/18 05:40 Anion Gap 11.7 (7.0-16.0) 12/22/18 05:40 BUN 16 mg/dL (7-25) 12/22/18 05:40 Creatinine 1.3 mg/dL (0.6-1.2) H 12/22/18 05:40 Est GFR ( Amer) TNP 12/22/18 05:40 Est GFR (Non-Af Amer) TNP 12/22/18 05:40 BUN/Creatinine Ratio 12.3 12/22/18 05:40 Glucose 113 mg/dL (70-105) H 12/22/18 05:40 Calcium 8.5 mg/dL (8.6-10.3) L 12/22/18 05:40 Total Bilirubin 0.3 mg/dL (0.3-1.0) 12/19/18 07:00 AST 18 U/L (13-39) 12/19/18 07:00 ALT 15 U/L (7-52) 12/19/18 07:00 Alkaline Phosphatase 48 U/L (34-104) 12/19/18 07:00 Total Protein 6.4 gm/dL (6.0-8.3) 12/19/18 07:00 Albumin 3.8 gm/dL (3.7-5.3) 12/19/18 07:00 Globulin 2.6 gm/dL 12/19/18 07:00 Albumin/Globulin Ratio 1.5 (1.0-1.8) 12/19/18 07:00 - Physical Exam Vitals and I&O: Vital Signs Temp 97.2 F 12/22/18 12:00 Pulse 91 12/22/18 14:25 Resp 18 12/22/18 14:25 BP 157/65 12/22/18 12:00 Pulse Ox 95 12/22/18 14:25 Intake & Output 12/21/18 12/22/18 12/22/18 18:59 06:59 18:59 Intake Total 1500 120 987.5 Balance 1500 120 987.5 Weight (lbs) 86.183 kg 86.183 kg Intake: Intake, IV Amount 1000 987.5 Sodium Chloride 0.9% 1, 1000 987.5 000 ml @ 50 mls/hr IV . Q20H [facility] Rx#:[id number] Oral 500 120 Other: # Voids 3 2 # Bowel Movements 0 2 Weight Source Bedscale Bedscale Active Medications: Current Medications Diltiazem HCl (Cardizem) 20 mg IVP Q4H PRN PRN Reason: HR Greater than 130 per min Stop: 02/17/19 13:55 Diltiazem HCl (Cardizem) 60 mg PO Q6HR [facility] Stop: 02/17/19 17:59 Last Admin: 12/22/18 11:56 Dose: 60 mg Sodium Chloride (Nacl 0.9%) 1,000 mls @ 50 mls/hr IV .Q20H [facility] Stop: 02/17/19 06:59 Last Admin: 12/22/18 14:53 Dose: 50 mls/hr Ipratropium [place] (Atrovent Neb 0.5mg/2.5ml) 0.5 mg HHN Q4HRT [facility] Stop: 02/17/19 06:59 Last Admin: 12/22/18 14:23 Dose: 0.5 mg Ipratropium [place] (Atrovent Neb 0.5mg/2.5ml) 0.5 mg HHN Q4HRT PRN PRN Reason: Congestion Stop: 02/17/19 06:59 Ondansetron HCl (Zofran) 4 mg IV Q8H PRN PRN Reason: Nausea / Vomiting Stop: 02/19/19 08:07 Last Admin: 12/21/18 08:35 Dose: 4 mg Pantoprazole Sodium (Protonix) 40 mg IVP DAILY [facility] Stop: 02/19/19 09:44 Last Admin: 12/22/18 08:59 Dose: 40 mg Rivaroxaban (Xarelto) 15 mg PO DAILY [facility] Stop: 02/18/19 08:59 Last Admin: 12/22/18 08:56 Dose: 15 mg Physical Exam: Patient is still a bit congested. General: weak, alert HEENT: NC/AT Neck: Supple Lungs: CTAB Cardiovascular: RRR, Normal S1, Normal S2 Abdomen: soft Extremities: clear Neurological: no change, muscle weakness - Procedures Procedures: Procedures Procedure Code Date OTHER GROUP THERAPY 94.44 05/10/15 RECREATIONAL THERAPY 93.81 12/31/07 Internal Medicine Assmt/Plan - Assessment Assessment: Echocardiogram showed Hypertrophy of Left Ventricle, Ejection fraction 75%. Atrial fibrillation with rapid ventricular response. Diabetes. Uncontrolled Atrial fibrillation. Congested. Hyperlipidemia. Schizoaffective Disorder. Hypertension. - Plan Plan: Continuation of care. Monitor Vitals, Labs. Continue anticogulant med. Cardiology followup. Continue present meds as directed. Monitor Diabetic diet. Fall precaution. Accu-checks twice daily, Continue DM meds as directed. Supportive care. Continue current treatment plan as ordered. Nutritional Asmnt/Malnutr-PDOC - Dietary Evaluation Malnutrition Findings (Please click <Entered> for more info): see orders.
--- NOTE | 2018-12-22 16:22 | GI Progress Note ---
Subjective - Review of Systems Service Date: 12/22/18 Events since last encounter: No events Subjective: Better Objective - Results Result Diagrams: 12/22/18 05:40 12/22/18 05:40 Recent Labs: Laboratory Last Values WBC 10.4 Th/cmm (4.8-10.8) 12/22/18 05:40 RBC 3.90 Mil/cmm (3.80-5.20) 12/22/18 05:40 Hgb 11.9 gm/dL (12-16) L 12/22/18 05:40 Hct 36.1 % (41.0-60) L 12/22/18 05:40 MCV 92.5 fl (81-100) 12/22/18 05:40 MCH 30.6 pg (27.0-31.0) 12/22/18 05:40 MCHC Differential 33.1 pg (28.0-36.0) 12/22/18 05:40 RDW 13.6 % (11.5-20.0) 12/22/18 05:40 Plt Count 332 Th/cmm (150-400) 12/22/18 05:40 MPV 8.2 fl 12/22/18 05:40 Neutrophils % 67.4 % (40.0-80.0) 12/22/18 05:40 Lymphocytes % 26.0 % (20.0-50.0) 12/22/18 05:40 Monocytes % 3.8 % (2.0-10.0) 12/22/18 05:40 Eosinophils % 2.6 % (0.0-5.0) 12/22/18 05:40 Basophils % 0.2 % (0.0-2.0) 12/22/18 05:40 Sodium 137 mEq/L (136-145) 12/22/18 05:40 Potassium 3.9 mEq/L (3.5-5.1) 12/22/18 05:40 Chloride 106 mEq/L (98-107) 12/22/18 05:40 Carbon Dioxide 23.2 mEq/L (21.0-31.0) 12/22/18 05:40 Anion Gap 11.7 (7.0-16.0) 12/22/18 05:40 BUN 16 mg/dL (7-25) 12/22/18 05:40 Creatinine 1.3 mg/dL (0.6-1.2) H 12/22/18 05:40 Est GFR ( Amer) TNP 12/22/18 05:40 Est GFR (Non-Af Amer) TNP 12/22/18 05:40 BUN/Creatinine Ratio 12.3 12/22/18 05:40 Glucose 113 mg/dL (70-105) H 12/22/18 05:40 Calcium 8.5 mg/dL (8.6-10.3) L 12/22/18 05:40 Total Bilirubin 0.3 mg/dL (0.3-1.0) 12/19/18 07:00 AST 18 U/L (13-39) 12/19/18 07:00 ALT 15 U/L (7-52) 12/19/18 07:00 Alkaline Phosphatase 48 U/L (34-104) 12/19/18 07:00 Total Protein 6.4 gm/dL (6.0-8.3) 12/19/18 07:00 Albumin 3.8 gm/dL (3.7-5.3) 12/19/18 07:00 Globulin 2.6 gm/dL 12/19/18 07:00 Albumin/Globulin Ratio 1.5 (1.0-1.8) 12/19/18 07:00 - Physical Exam Vitals and I&O: Vital Signs Temp 97.2 F 12/22/18 15:23 Pulse 72 12/22/18 15:23 Resp 18 12/22/18 15:23 BP 157/65 12/22/18 15:23 Pulse Ox 97 12/22/18 15:23 Intake & Output 12/21/18 12/22/18 12/22/18 18:59 06:59 18:59 Intake Total 1500 120 987.5 Balance 1500 120 987.5 Weight (lbs) 86.183 kg 86.183 kg Intake: Intake, IV Amount 1000 987.5 Sodium Chloride 0.9% 1, 1000 987.5 000 ml @ 50 mls/hr IV . Q20H [facility] Rx#:[id number] Oral 500 120 Other: # Voids 3 2 # Bowel Movements 0 2 Weight Source Bedscale Bedscale Active Medications: Current Medications Diltiazem HCl (Cardizem) 20 mg IVP Q4H PRN PRN Reason: HR Greater than 130 per min Stop: 02/17/19 13:55 Diltiazem HCl (Cardizem) 60 mg PO Q6HR [facility] Stop: 02/17/19 17:59 Last Admin: 12/22/18 11:56 Dose: 60 mg Sodium Chloride (Nacl 0.9%) 1,000 mls @ 50 mls/hr IV .Q20H [facility] Stop: 02/17/19 06:59 Last Admin: 12/22/18 14:53 Dose: 50 mls/hr Ipratropium [place] (Atrovent Neb 0.5mg/2.5ml) 0.5 mg HHN Q4HRT [facility] Stop: 02/17/19 06:59 Last Admin: 12/22/18 14:23 Dose: 0.5 mg Ipratropium [place] (Atrovent Neb 0.5mg/2.5ml) 0.5 mg HHN Q4HRT PRN PRN Reason: Congestion Stop: 02/17/19 06:59 Ondansetron HCl (Zofran) 4 mg IV Q8H PRN PRN Reason: Nausea / Vomiting Stop: 02/19/19 08:07 Last Admin: 12/21/18 08:35 Dose: 4 mg Pantoprazole Sodium (Protonix) 40 mg IVP DAILY [facility] Stop: 02/19/19 09:44 Last Admin: 12/22/18 08:59 Dose: 40 mg Rivaroxaban (Xarelto) 15 mg PO DAILY [facility] Stop: 02/18/19 08:59 Last Admin: 12/22/18 08:56 Dose: 15 mg General: Alert, No acute distress HEENT: Mucous membr. moist/pink Neck: Supple, JVD, +2 carotid pulse wo bruit (last) Cardiovascular: Systolic murmurs, Other Lungs: Clear to auscultation (atrial fibrillation), Normal air movement Abdomen: Bowel sounds, Soft, no Tender Neurological: Normal speech, Strength at 5/5 X4 ext, Normal tone, Cranial nerves 3-12 NL, Reflexes 2+ - Procedures Procedures: Procedures Procedure Code Date OTHER GROUP THERAPY 94.44 05/10/15 RECREATIONAL THERAPY 93.81 12/31/07 Assessment/Plan - Assessment Assessment: 1.Nausea and vomiting 2. Coffee ground emesis - Plan Plan: 1.Nausea and vomiting resolved Advance diet. 2. Coffee ground emesis Not well documented Resolved H/H stable
--- NOTE | 2018-12-29 20:20 | Discharge Summary ---
DATE OF DISCHARGE: 12/22/2018 HOSPITAL COURSE: The patient was discharged to [facility] on12/22. This patient was admitted because of palpitations and the patient had atrial fibrillation, diabetes, hyperlipidemia, schizoaffective disorder, and hypertension. She was admitted to the psych unit. Later on, blood pressure was uncontrolled, sent back to the medical unit and the patient has had to be given medication to control her blood pressure. The patient eventually improved with the final diagnosis of atrial fibrillation, controlled; diabetes, controlled; hypertension, controlled; hyperlipidemia; and a diagnosis of schizophrenia was made. The patient was sent to [facility] in stable condition where I will be following the patient. MEDICATIONS: See the reconciliation sheet. JOB# [id number]
== END 2018-12-22 19:52 | DRG 308 ==
LOC: TELE 05:00 → MSI 12-22 11:38
PROVIDERS: ADMIT Internal Medicine; ATTEND Internal Medicine
DX: I48.91 Unspecified atrial fibrillation (principal); N17.0 Acute kidney failure with tubular necrosis; E78.5 Hyperlipidemia, unspecified; F25.9 Schizoaffective disorder, unspecified; E11.22 Type 2 diabetes mellitus with diabetic chronic kidney disease; I12.9 Hypertensive chronic kidney disease with stage 1 through stage 4 chronic kidney disease, or unspecified chronic kidney disease; N18.2 Chronic kidney disease, stage 2 (mild); R11.2 Nausea with vomiting, unspecified; Z88.0 Allergy status to penicillin
CPT/HCPCS: 36415-UA; 71045-TC; 74000-TC; 80048-TC; 80053-TC; 85025-TC; 90779; 93005; 94760; C9113; J2405; J7030; J7042; Z7610

== ENCOUNTER 2019-09-27 14:23 | Inpatient (IN) | payer MEDICARE, OTHER ==
[2019-09-28] MEDS ORDERED: Magnesium Hydroxide (MOM) 30 mL UDC PO PRN (00:59)
[2019-09-28] MEDS ORDERED: Maalox 30 mL Cup PO PRN (01:02)
[2019-09-28] MEDS ORDERED: Non-Formulary Item 1 EA (Linaclotide [Linzess] 145 MCG) PO SCH (09:00)
[2019-09-28] MEDS: Benztropine 1 MG TAB PO SCH (09:11)
--- NOTE | 2019-09-29 01:37 | Psychiatric Evaluation ---
DATE OF SERVICE: 09/28/2019 HISTORY OF PRESENT ILLNESS: This is a 74-year-old female coming in from [place] after medical clearance. On [id number], AO to name only, does not know where she is or what is going on, irritable, agitated. Apparently per staff, throwing food, screaming, cursing, very intrusive, staff had to put her in the isolation room. History of mental illness, poor impulse control. PAST PSYCHIATRIC HISTORY: Unclear, not really able to answer many questions, poor historian. SOCIAL HISTORY: Unable to assess fully. Coming in from address in [place]. Unclear social support. MEDICATIONS: Noted including Depakote. MEDICAL HISTORY: Noted. MENTAL STATUS EXAMINATION: Disheveled, unkempt, in isolation, yelling, screaming. Per staff, also was throwing food, stealing, poor orientation, unclear SI or HI. PROVISIONAL DIAGNOSIS: Rule out dementia, rule out schizophrenia, rule out bipolar disorder, psychosis, unspecified; mood, unspecified. MEDICAL: Please see full H and P. ESTIMATED LENGTH OF STAY: 10-12 days. ASSESSMENT: The patient requiring hospitalization for the above noted reasons, ongoing symptoms, safety concerns, agitated, aggressive. TREATMENT PLAN: Includes group as well as milieu therapy. CONDITIONS FOR DISCHARGE: Improved mood, improved affect, better control of any agitation. JOB# [id number]
[2019-09-29] MEDS: Benztropine 1 MG TAB PO SCH (08:51)
--- NOTE | 2019-09-29 09:25 | Progress Notes ---
DATE: 09/29/2019 SUBJECTIVE: A 74-year-old female coming in from [place]. The patient is still very confused, cursing, yelling, and throwing objects. Staff is noting ongoing behavioral disturbances, restlessness, difficult to control her behaviors, confused, aggressive, labile, and cursing at staff. ASSESSMENT: The patient remains symptomatic as noted. PLAN: We will continue to monitor ongoing symptoms. [facility]# [id number]
--- NOTE | 2019-09-29 10:18 | History and Physical ---
History of Present Illness - HPI Chief Complaint: 74F admitted for psychosis HPI: 74F admitted for psychosis, coming from [place] after medical clearance. PMH include afib, DM, Hyperlipidemia, HTN, schizoaffective disorder. It was reported that patient has been screaming and throwing items. Delusional stating she is 5 months after getting her blood drawn. Vital Signs: Last Vital Signs Temp 97.6 F 09/29/19 06:21 Pulse 73 09/29/19 08:51 Resp 18 09/29/19 08:00 BP 130/70 09/29/19 08:51 Pulse Ox 92 09/29/19 06:21 Past Medical History Cardiovascular: Report: AFIB, HTN, Hyperlipidemia Psych: Report: Other (schizoaffective disorder) Endocrine: Report: Diabetes Family Medical History - Family Member Mother History Unknown: Yes Ethnicity: Unknown Living Status: Unknown Hx Family Cancer: (unknown) Hx Family Coronary Artery Disease: (unknown) Hx Family Congestive Heart Failure: (unknown) Hx Family Hypertension: (unknown) Hx Family Stroke: (unknown) Hx Family Diabetes: (unknown) Hx Family Seizures: (unknown) Hx Family Dementia: (unknown) Hx Family AIDS: (unknown) Hx Family HIV: No Hx Family COPD: (unknown) Hx Family Hepatitis: (unknown) Hx Family Psychiatric Problems: (unknown) Hx Family Tuberculosis: (unknown) Social History Smoke: No Alcohol: None, Other Drugs: None Lives: Other - Medications Home Medications: Home Medication Medication Instructions Recorded Type Linaclotide [Linzess] 145 mcg PO DAILY 01/26/18 History Acetaminophen [Tylenol] 650 mg PO Q4HR PRN tab 02/03/18 Rx Al Hyd/Mg Hyd/Simethicone [Maalox] 30 ml PO Q6HR PRN #0 02/03/18 Rx Lorazepam [Ativan] 0.5 mg PO Q4HR PRN tab 02/03/18 Rx Zolpidem Tartrate [Ambien] 5 mg PO HS PRN tab 02/03/18 Rx Benztropine [Cogentin*] 1 mg PO DAILY 09/28/19 History Docusate Sodium [Col-Rite] 100 mg PO BID 09/28/19 History Furosemide 40 mg PO DAILY 09/28/19 History Haloperidol [Haldol*] 5 mg PO BID 09/28/19 History Metoprolol Succinate [Toprol Xl] 100 mg PO DAILY 09/28/19 History Trazodone HCl 50 mg PO HS 09/28/19 History Valproic Acid [Depakene] 250 mg PO BID 09/28/19 History - Allergies Allergies/Adverse Reactions: Allergies Allergy/AdvReac Type Severity Reaction Status Date / Time Penicillins Allergy Severe Verified 09/28/19 00:59 Review of Systems - Review of Systems Constitutional: Report: No Significant Eyes: Report: No Significant Respiratory: Report: No Significant Cardiovascular: Report: No Significant Neurological: Report: No Significant Physical Exam - Physical Exam HEENT: Report: Ears Nose Throat within normal limits Neck: Report: Within normal limits Cardiovascular Systems: Report: Regular, Rate and Rhythm Respiratory: Report: Other (no acute respiratory distress) Abdomen: Report: Non-tender to palpation Neuro/Psych: Report: Other (delusional) - Assessment Assessment: Schizoaffective Disorder. Psychosis Delusional Hx afib Diabetes. Hyperlipidemia. Hypertension. - Plan Plan: Continue current treatment plan. Continue current medications Continue to monitor VS Monitor Diet/Nutritional support. Psych management per Psychiatry. Pain Management. PT/OT prn Safety precaution, Fall precaution, frequent nursing round. Supportive care. Continue collaborating with consulting specialists, case management and nursing team
--- NOTE | 2019-09-30 07:20 | Progress Notes ---
DATE: 09/30/2019 SUBJECTIVE: The patient is in the hospital, still unruly, very confused, easily agitated, can be aggressive per staff. The patient is talking about odd things like finding a bag of gold. Stating she is going to go to [employer], not really making much sense on exam. Currently on dosing of Haldol, ongoing symptoms, safety concerns. Medications were reviewed. Vitals were reviewed. Ongoing concerns about her impulse control, concerns she may act out. We will initiate a 14-day hold. JOB# [id number]
[2019-09-30] MEDS: Benztropine 1 MG TAB PO SCH (09:36)
--- NOTE | 2019-09-30 12:23 | Internal Medicine Prog Note ---
Internal Medicine Subjective - Subjective Patient is:: awake, verbal, in bed Per staff patient has:: no adverse event, no episodes of fall Internal Medicine Objective - Physical Exam Vitals and I&O: Vital Signs Temp 0 F 09/30/19 05:17 Pulse 54 09/29/19 20:07 Resp 18 09/30/19 08:00 BP 135/95 09/29/19 20:07 Pulse Ox 96 09/29/19 20:07 Intake & Output 09/29/19 09/30/19 09/30/19 18:59 06:59 18:59 Intake Total 800 120 Balance 800 120 Intake: Oral 800 120 Other: # Voids 3 3 # Bowel Movements 0 0 Active Medications: Current Medications Acetaminophen (Tylenol) 650 mg PO Q4HR PRN PRN Reason: Mild Pain (Scale 1-3) Stop: 11/27/19 01:01 Acetaminophen (Tylenol) 650 mg PO Q4HR PRN PRN Reason: TEMP ABOVE 100 Stop: 11/28/19 16:02 Al Hydrox/Mg Hydrox/Simethicone (Maalox) 30 ml PO Q6HR PRN PRN Reason: Upset Stomach / Indigestion Stop: 11/27/19 01:01 Benztropine Mesylate (Cogentin) 1 mg PO DAILY [facility] Stop: 11/27/19 08:59 Last Admin: 09/30/19 09:36 Dose: 1 mg Docusate Sodium (Colace) 100 mg PO BID [facility] Stop: 11/27/19 08:59 Last Admin: 09/30/19 09:35 Dose: 100 mg Furosemide (Lasix) 40 mg PO DAILY [facility] Stop: 11/27/19 08:59 Last Admin: 09/30/19 09:36 Dose: Not Given Haloperidol (Haldol) 5 mg PO BID [facility]; Protocol Stop: 11/27/19 16:59 Last Admin: 09/30/19 09:36 Dose: 5 mg Lorazepam (Ativan) 0.5 mg PO Q4HR PRN; Protocol PRN Reason: Anxiety Stop: 11/27/19 01:01 Last Admin: 09/29/19 20:40 Dose: 0.5 mg Magnesium Hydroxide (Milk Of Magnesia) 30 ml PO HS PRN PRN Reason: Constipation Metoprolol Succinate (Toprol Xl) 100 mg PO DAILY [facility] Stop: 11/27/19 08:59 Last Admin: 09/30/19 09:36 Dose: Not Given Trazodone HCl (Desyrel) mg PO HS [facility]; Protocol Stop: 11/27/19 20:59 Valproate Sodium (Depakene) 250 mg PO BID [facility]; Protocol Stop: 11/27/19 16:59 Last Admin: 09/30/19 09:35 Dose: 250 mg Zolpidem Tartrate (Ambien) 5 mg PO HS PRN PRN Reason: Insomnia Stop: 11/27/19 01:01 Last Admin: 09/29/19 21:07 Dose: 5 mg General: weak, demented, NAD HEENT: NC/AT, PERRLA Neck: Supple, No JVD Lungs: other (no acute respiratory distress on RA) Cardiovascular: RRR Abdomen: soft, non-tender - Procedures Procedures: Procedures Procedure Code Date OTHER GROUP THERAPY 94.44 05/10/15 RECREATIONAL THERAPY 93.81 12/31/07 Internal Medicine Assmt/Plan - Assessment Assessment: Schizoaffective Disorder. Psychosis Delusional Hx afib Diabetes. Hyperlipidemia. Hypertension. - Plan Plan: Continue current treatment plan. Continue current medications Continue to monitor VS Monitor Diet/Nutritional support. Psych management per Psychiatry. Pain Management. PT/OT prn Safety precaution, Fall precaution, frequent nursing round. Supportive care. Continue collaborating with consulting specialists, case management and nursing team
[2019-10-01] MEDS: Benztropine 1 MG TAB PO SCH (09:16)
--- NOTE | 2019-10-01 17:10 | Internal Medicine Prog Note ---
Internal Medicine Subjective - Subjective Service Date: 10/01/19 Patient is:: awake, verbal, in bed Per staff patient has:: no adverse event, no episodes of fall Internal Medicine Objective - Physical Exam Vitals and I&O: Vital Signs Temp 96.7 F 10/01/19 15:12 Pulse 61 10/01/19 15:12 Resp 18 10/01/19 15:12 BP 124/83 10/01/19 15:12 Pulse Ox 100 10/01/19 15:12 Intake & Output 09/30/19 10/01/19 10/01/19 18:59 06:59 18:59 Intake Total 600 120 Balance 600 120 Intake: Oral 600 120 Other: # Voids 4 1 # Bowel Movements 1 0 Active Medications: Current Medications Acetaminophen (Tylenol) 650 mg PO Q4HR PRN PRN Reason: Mild Pain (Scale 1-3) Stop: 11/27/19 01:01 Acetaminophen (Tylenol) 650 mg PO Q4HR PRN PRN Reason: TEMP ABOVE 100 Stop: 11/28/19 16:02 Al Hydrox/Mg Hydrox/Simethicone (Maalox) 30 ml PO Q6HR PRN PRN Reason: Upset Stomach / Indigestion Stop: 11/27/19 01:01 Benztropine Mesylate (Cogentin) 1 mg PO DAILY [facility] Stop: 11/27/19 08:59 Last Admin: 10/01/19 09:16 Dose: 1 mg Docusate Sodium (Colace) 100 mg PO BID [facility] Stop: 11/27/19 08:59 Last Admin: 10/01/19 16:24 Dose: 100 mg Furosemide (Lasix) 40 mg PO DAILY [facility] Stop: 11/27/19 08:59 Last Admin: 10/01/19 09:15 Dose: Not Given Haloperidol (Haldol) 5 mg PO BID [facility]; Protocol Stop: 11/27/19 16:59 Last Admin: 10/01/19 16:24 Dose: 5 mg Lorazepam (Ativan) 0.5 mg PO Q4HR PRN; Protocol PRN Reason: Anxiety Stop: 11/27/19 01:01 Last Admin: 10/01/19 06:40 Dose: 0.5 mg Magnesium Hydroxide (Milk Of Magnesia) 30 ml PO HS PRN PRN Reason: Constipation Metoprolol Succinate (Toprol Xl) 100 mg PO DAILY [facility] Stop: 11/27/19 08:59 Last Admin: 10/01/19 09:16 Dose: 100 mg Trazodone HCl (Desyrel) 50 mg PO HS [facility]; Protocol Stop: 11/27/19 20:59 Last Admin: 09/30/19 20:55 Dose: 50 mg Valproate Sodium (Depakene) 250 mg PO BID [facility]; Protocol Stop: 11/27/19 16:59 Last Admin: 10/01/19 16:24 Dose: 250 mg Zolpidem Tartrate (Ambien) 5 mg PO HS PRN PRN Reason: Insomnia Stop: 11/27/19 01:01 Last Admin: 09/29/19 21:07 Dose: 5 mg General: weak, demented, NAD HEENT: NC/AT, PERRLA Neck: Supple, No JVD Lungs: other (no acute respiratory distress on RA) Cardiovascular: RRR Abdomen: soft, non-tender - Procedures Procedures: Procedures Procedure Code Date OTHER GROUP THERAPY 94.44 05/10/15 RECREATIONAL THERAPY 93.81 12/31/07 Internal Medicine Assmt/Plan - Assessment Assessment: Schizoaffective Disorder. Psychosis Delusional Hx afib Diabetes. Hyperlipidemia. Hypertension. - Plan Plan: Continue current treatment plan. Continue current medications Continue to monitor VS Monitor Diet/Nutritional support. Psych management per Psychiatry. Pain Management. PT/OT prn Safety precaution, Fall precaution, frequent nursing round. Supportive care. Continue collaborating with consulting specialists, case management and nursing team Nutritional Asmnt/Malnutr-PDOC - Dietary Evaluation Malnutrition Findings (Please click <Entered> for more info): Nutritional Asmnt/Malnutrition Start: 10/01/19 14: 07 Text: Status: Complete Freq: Protocol: Document 10/01/19 14:07 DALE (Rec: 10/01/19 14:10 DALE [id number]) Nutritional Asmnt/Malnutrition Patient General Information Nutritional Screening Moderate Risk Diagnosis Psychosis Pertinent Medical Hx/Surgical Hx Afib, DM, Hyperlipidemia, HTN, Schizoaffective Disorder Subjective Information Pt is a 74-year-old female admitted on 09/27 d/t pt screaming and throwing thing, delusional. Pt is eating an estimated 65% of meals x 3 days (average) Per Meal/ Nutrition Activity Record. Dietary is currently providing an estimated 2500 kcals and 100 gm Pro, per Pt PO intake this is providing an estimated 1625 kcals and 65gm Pro to meet 100% kcal and 100% Pro needs. Recommend CCHO added to Diet Rx as pt had labs (09/27) A1c 6.1%. Spoke with nurse Enriquez pertaining to recommendation. Anthropometrics HT: 54 WT: 158 LB (71.82 kg) ABW: 130 LB (58.86 kg) BMI: 27.12 (Overweight) GI/ Skin Integrity GI: WNL, Soft, Non-tender BM: 09/30 x1 I/O: 720/Not Noted Skin: WNL, Intact Jewel: 16 Diet Order: Pureed Estimated Energy Needs: ( Geriatric, ABW) 5896-7170 kcals (25-30 kcals/ kg) 60-70g Pro (1.0-1.2 g/kg) 8202-8499 ml (25-30 ml/kg) Current Diet Order/ Nutrition Support Pureed Pertinent Medications Maalox (PRN), Colace, Lasix, MOM (PRN) Pertinent Labs 09/27: A1c 6.1%, BUN/Cr 43/1. 64, Na 131, HDL 33 Nutritional Hx/Data Height 5 ft 4 in Height (Calculated Centimeters) 162.6 Current Weight (lbs) 158 lb Weight (Calculated Kilograms) 71.7 Weight (Calculated Grams) 72554.6 [place] Body Weight 120 LB (54.44 kg) % [place] Body Weight 132 Body Mass Index (BMI) 27.1 Weight Status Overweight GI Symptoms GI Symptoms None Last BM 09/30 x1 Skin Integrity/Comment: Skin: WNL, Intact Jewel: 16 Current %PO Fair (50-74%) Estimated Nutritional Goals BEE in Kcals: Adj wt of IBW Calories/Kcals/Kg 25-30 Kcals Calculated 7232-9320 Protein: Adj wt of IBW Protein g/k.0-1.2 Protein Calculated 60-70 Fluid: ml 6930-9297 ml (25-30 ml/kg) Nutritional Problem No current Nutrition Prob Problem No nutrition diagnosis at this time. Etiology N/A Signs/Symptoms: N/A Malnutrition Related to Morbid Obesity Malnutrition related to morbid obesity No Intervention/Recommendation Comments Recommend CCHO added to Diet Rx as pt had labs (09/27) A1c 6.1%. Expected Outcomes/Goals Expected Outcomes/Goals 1.PO intake to continue to meet >75% of estimated nutritional needs. 2.Monitor PO intake, wt, nutrition related labs, and skin integrity. 3.F/U as low risk in 7-10 days , 10/08-10/11
--- NOTE | 2019-10-01 21:02 | Progress Notes ---
DATE: 10/01/2019 SUBJECTIVE: The patient in the hospital, still unruly, yelling at times, mumbling to self, responding to internal stimuli, ongoing psychotic symptoms. MEDICATIONS: Noted. Currently on dosing of Haldol, ongoing symptoms, psychotic symptoms. JOB# [id number]
[2019-10-02] MEDS: Benztropine 1 MG TAB PO SCH (08:44)
--- NOTE | 2019-10-02 15:39 | Progress Notes ---
DATE: 10/02/2019 The patient in the hospital, slept 8-9 hours, no yelling observed, resting in bed, poor orientation, confused, talking nonsense, difficult to understand what she is saying. She remains very impulsive, unpredictable, behavioral disturbances while in the hospital. Staff having hard time controlling her behaviors. Medications were reviewed. We will continue to monitor closely. JOB# [id number]
--- NOTE | 2019-10-02 21:03 | Internal Medicine Prog Note ---
Internal Medicine Subjective - Subjective Service Date: 10/02/19 Patient seen and examined:: with staff Patient is:: awake, verbal, in bed, confused Patient Complaints of:: other (Diabetic.) Per staff patient has:: no adverse event, no episodes of fall Internal Medicine Objective - Physical Exam Vitals and I&O: Vital Signs Temp 97.1 F 10/02/19 20:01 Pulse 60 10/02/19 20:01 Resp 18 10/02/19 20:01 BP 105/61 10/02/19 20:01 Pulse Ox 97 10/02/19 20:01 Intake & Output 10/02/19 10/02/19 10/03/19 06:59 18:59 06:59 Intake Total 120 1200 120 Balance 120 1200 120 Intake: Oral 120 1200 120 Other: # Voids 3 1 # Bowel Movements 1 0 Active Medications: Current Medications Acetaminophen (Tylenol) 650 mg PO Q4HR PRN PRN Reason: Mild Pain (Scale 1-3) Stop: 11/27/19 01:01 Acetaminophen (Tylenol) 650 mg PO Q4HR PRN PRN Reason: TEMP ABOVE 100 Stop: 11/28/19 16:02 Al Hydrox/Mg Hydrox/Simethicone (Maalox) 30 ml PO Q6HR PRN PRN Reason: Upset Stomach / Indigestion Stop: 11/27/19 01:01 Benztropine Mesylate (Cogentin) 1 mg PO DAILY [facility] Stop: 11/27/19 08:59 Last Admin: 10/02/19 08:44 Dose: 1 mg Docusate Sodium (Colace) 100 mg PO BID [facility] Stop: 11/27/19 08:59 Last Admin: 10/02/19 17:18 Dose: 100 mg Furosemide (Lasix) 40 mg PO DAILY [facility] Stop: 11/27/19 08:59 Last Admin: 10/02/19 08:44 Dose: 40 mg Haloperidol (Haldol) 5 mg PO BID [facility]; Protocol Stop: 11/27/19 16:59 Last Admin: 10/02/19 17:18 Dose: 5 mg Lorazepam (Ativan) 0.5 mg PO Q4HR PRN; Protocol PRN Reason: Anxiety Stop: 11/27/19 01:01 Last Admin: 10/01/19 06:40 Dose: 0.5 mg Magnesium Hydroxide (Milk Of Magnesia) 30 ml PO HS PRN PRN Reason: Constipation Metoprolol Succinate (Toprol Xl) 100 mg PO DAILY [facility] Stop: 11/27/19 08:59 Last Admin: 10/02/19 08:44 Dose: 100 mg Trazodone HCl (Desyrel) 50 mg PO HS [facility]; Protocol Stop: 11/27/19 20:59 Last Admin: 10/02/19 20:49 Dose: 50 mg Valproate Sodium (Depakene) 250 mg PO BID [facility]; Protocol Stop: 11/27/19 16:59 Last Admin: 10/02/19 17:18 Dose: 250 mg Zolpidem Tartrate (Ambien) 5 mg PO HS PRN PRN Reason: Insomnia Stop: 11/27/19 01:01 Last Admin: 10/01/19 20:31 Dose: 5 mg Physical Exam: Needs close monitoring, Patient is very delusional and agitated. General: weak, demented, NAD HEENT: NC/AT, PERRLA Neck: Supple, No JVD Lungs: other (no acute respiratory distress on RA) Cardiovascular: RRR Abdomen: soft, non-tender Extremities: clear Neurological: no change - Procedures Procedures: Procedures Procedure Code Date OTHER GROUP THERAPY 94.44 05/10/15 RECREATIONAL THERAPY 93.81 12/31/07 Internal Medicine Assmt/Plan - Assessment Assessment: Schizoaffective disorder. Psychosis. Delusional. History of Afib. Diabetes. Hyperlipidemia. Hypertension. - Plan Plan: Safety precaution. Monitor vitals and labs. Continue present meds as directed. Supportive care. Accu-check twice daily. Monitor diet and nutritional support. Psych management as per Psych. Continue current treatment plan. Nutritional Asmnt/Malnutr-PDOC - Dietary Evaluation Malnutrition Findings (Please click <Entered> for more info): Nutritional Asmnt/Malnutrition Start: 10/01/19 14: 07 Text: Status: Complete Freq: Protocol: Document 10/01/19 14:07 DALE (Rec: 10/01/19 14:10 DALE [email or web address]) Nutritional Asmnt/Malnutrition Patient General Information Nutritional Screening Moderate Risk Diagnosis Psychosis Pertinent Medical Hx/Surgical Hx Afib, DM, Hyperlipidemia, HTN, Schizoaffective Disorder Subjective Information Pt is a 74-year-old female admitted on 09/27 d/t pt screaming and throwing thing, delusional. Pt is eating an estimated 65% of meals x 3 days (average) Per Meal/ Nutrition Activity Record. Dietary is currently providing an estimated 2500 kcals and 100 gm Pro, per Pt PO intake this is providing an estimated 1625 kcals and 65gm Pro to meet 100% kcal and 100% Pro needs. Recommend CCHO added to Diet Rx as pt had labs (09/27) A1c 6.1%. Spoke with nurse Enriquez pertaining to recommendation. Anthropometrics HT: 54 WT: 158 LB (71.82 kg) ABW: 130 LB (58.86 kg) BMI: 27.12 (Overweight) GI/ Skin Integrity GI: WNL, Soft, Non-tender BM: 09/30 x1 I/O: 720/Not Noted Skin: WNL, Intact Jewel: 16 Diet Order: Pureed Estimated Energy Needs: ( Geriatric, ABW) 7732-2527 kcals (25-30 kcals/ kg) 60-70g Pro (1.0-1.2 g/kg) 2697-5242 ml (25-30 ml/kg) Current Diet Order/ Nutrition Support Pureed Pertinent Medications Maalox (PRN), Colace, Lasix, MOM (PRN) Pertinent Labs 09/27: A1c 6.1%, BUN/Cr 43/1. 64, Na 131, HDL 33 Nutritional Hx/Data Height 1.63 m Height (Calculated Centimeters) 162.6 Current Weight (lbs) 71.668 kg Weight (Calculated Kilograms) 71.7 Weight (Calculated Grams) 91621.6 [place] Body Weight 120 LB (54.44 kg) % [place] Body Weight 132 Body Mass Index (BMI) 27.1 Weight Status Overweight GI Symptoms GI Symptoms None Last BM 09/30 x1 Skin Integrity/Comment: Skin: WNL, Intact Jewel: 16 Current %PO Fair (50-74%) Estimated Nutritional Goals BEE in Kcals: Adj wt of IBW Calories/Kcals/Kg 25-30 Kcals Calculated 0891-0093 Protein: Adj wt of IBW Protein g/k.0-1.2 Protein Calculated 60-70 Fluid: ml 6296-8123 ml (25-30 ml/kg) Nutritional Problem No current Nutrition Prob Problem No nutrition diagnosis at this time. Etiology N/A Signs/Symptoms: N/A Malnutrition Related to Morbid Obesity Malnutrition related to morbid obesity No Intervention/Recommendation Comments Recommend CCHO added to Diet Rx as pt had labs (09/27) A1c 6.1%. Expected Outcomes/Goals Expected Outcomes/Goals 1.PO intake to continue to meet >75% of estimated nutritional needs. 2.Monitor PO intake, wt, nutrition related labs, and skin integrity. 3.F/U as low risk in 7-10 days , 10/08-10/11
--- NOTE | 2019-10-03 07:59 | Progress Notes ---
DATE: 10/03/2019 SUBJECTIVE: The patient is in the hospital, ongoing symptoms, easily agitated, not wanting to speak with me today, covers the face with the blanket, poorly oriented, loud outburst screams at times, can be aggressive per staff, still throwing food on the floor. ASSESSMENT: The patient remains symptomatic, unruly, ongoing symptoms as noted. PLAN: We will continue to monitor. Continue dosing of Depakote and Haldol. We will check a Depakote level and make appropriate adjustments. JOB# [id number]
[2019-10-03] MEDS: Benztropine 1 MG TAB PO SCH (09:43)
--- NOTE | 2019-10-03 14:08 | Progress Notes ---
DATE: 10/03/2019 SUBJECTIVE: The patient was seen in the room. The patient is very agitated, easily gets frustrated, does not want to have any conversation, still have behavioral outbursts with poor impulse control. Otherwise, the patient appears to be in no acute distress. OBJECTIVE: VITAL SIGNS: Temperature 96.9, heart rate 78, blood pressure 95/55, respirations 18, 95% on room air. HEENT: Head is atraumatic and normocephalic. Eyes: Bilateral conjunctivae are clear. Bilateral pupils are equally round and reactive. NECK: Supple. No JVD. CARDIOVASCULAR: S1 and S2, without murmur. PULMONARY: Clear to auscultation. GASTROINTESTINAL: Soft and nontender without guarding. Positive bowel sounds. MUSCULOSKELETAL: No clubbing. No cyanosis noted. ASSESSMENT: 1. Schizoaffective disorder. 2. Psychosis. 3. Hypertension. 4. Hyperlipidemia. 5. Diabetes. PLAN: We will continue to keep the patient to inpatient Psychiatric Unit. We will follow up with a psychiatrist to monitor the patient's condition and behavior. We will put the patient on fall precautions. Treatment plans were discussed with the patient's nurse. Treatment plans were discussed with Dr. Hidalgo. JOB# [id number]
[2019-10-04] MEDS: Benztropine 1 MG TAB PO SCH (08:31)
--- NOTE | 2019-10-04 13:27 | Internal Medicine Prog Note ---
Internal Medicine Subjective - Subjective Patient is:: awake, verbal, philly chair, confused Patient Complaints of:: other (Diabetic.) Per staff patient has:: no adverse event, no episodes of fall, other (patient slid of chair and was on the back of the philly chair this morning, denies any trauma.) Internal Medicine Objective - Physical Exam Vitals and I&O: Vital Signs Temp 97.2 F 10/04/19 06:07 Pulse 51 10/04/19 08:33 Resp 20 10/04/19 08:00 BP 117/66 10/04/19 08:33 Pulse Ox 98 10/04/19 06:07 Intake & Output 10/03/19 10/04/19 10/04/19 18:59 06:59 18:59 Intake Total 1200 120 Output Total 1 Balance 1200 119 Intake: Oral 1200 120 Output: Urine/Stool Mix 1 Other: # Voids 3 1 # Bowel Movements 0 Active Medications: Current Medications Acetaminophen (Tylenol) 650 mg PO Q4HR PRN PRN Reason: Mild Pain (Scale 1-3) Stop: 11/27/19 01:01 Acetaminophen (Tylenol) 650 mg PO Q4HR PRN PRN Reason: TEMP ABOVE 100 Stop: 11/28/19 16:02 Al Hydrox/Mg Hydrox/Simethicone (Maalox) 30 ml PO Q6HR PRN PRN Reason: Upset Stomach / Indigestion Stop: 11/27/19 01:01 Benztropine Mesylate (Cogentin) 1 mg PO DAILY [facility] Stop: 11/27/19 08:59 Last Admin: 10/04/19 08:31 Dose: 1 mg Docusate Sodium (Colace) 100 mg PO BID [facility] Stop: 11/27/19 08:59 Last Admin: 10/04/19 08:31 Dose: 100 mg Furosemide (Lasix) 40 mg PO DAILY [facility] Stop: 11/27/19 08:59 Last Admin: 10/04/19 08:31 Dose: 40 mg Haloperidol (Haldol) 5 mg PO BID [facility]; Protocol Stop: 11/27/19 16:59 Last Admin: 10/04/19 08:31 Dose: 5 mg Lorazepam (Ativan) 0.5 mg PO Q4HR PRN; Protocol PRN Reason: Anxiety Stop: 11/27/19 01:01 Last Admin: 10/04/19 10:24 Dose: 0.5 mg Magnesium Hydroxide (Milk Of Magnesia) 30 ml PO HS PRN PRN Reason: Constipation Metoprolol Succinate (Toprol Xl) 100 mg PO DAILY [facility] Stop: 11/27/19 08:59 Last Admin: 10/04/19 08:33 Dose: Not Given Trazodone HCl (Desyrel) 50 mg PO HS [facility]; Protocol Stop: 11/27/19 20:59 Last Admin: 10/03/19 20:36 Dose: 50 mg Valproate Sodium (Depakene) 250 mg PO BID [facility]; Protocol Stop: 11/27/19 16:59 Last Admin: 10/04/19 08:31 Dose: 250 mg Zolpidem Tartrate (Ambien) 5 mg PO HS PRN PRN Reason: Insomnia Stop: 11/27/19 01:01 Last Admin: 10/01/19 20:31 Dose: 5 mg General: weak, demented, NAD HEENT: NC/AT, PERRLA Neck: Supple, No JVD Lungs: other (no acute respiratory distress on RA) Cardiovascular: RRR Abdomen: soft, non-tender Extremities: clear Neurological: no change - Procedures Procedures: Procedures Procedure Code Date OTHER GROUP THERAPY 94.44 05/10/15 RECREATIONAL THERAPY 93.81 12/31/07 Internal Medicine Assmt/Plan - Assessment Assessment: Schizoaffective Disorder. Psychosis Delusional Hx afib Diabetes. Hyperlipidemia. Hypertension. - Plan Plan: Continue current treatment plan. Continue current medications Continue to monitor VS Monitor Diet/Nutritional support. Psych management per Psychiatry. Pain Management. PT/OT prn Safety precaution, Fall precaution, frequent nursing round. Supportive care. Continue collaborating with consulting specialists, case management and nursing team Nutritional Asmnt/Malnutr-PDOC - Dietary Evaluation Malnutrition Findings (Please click <Entered> for more info): Nutritional Asmnt/Malnutrition Start: 10/01/19 14: 07 Text: Status: Complete Freq: Protocol: Document 10/01/19 14:07 DALE (Rec: 10/01/19 14:10 [email or web address]) Nutritional Asmnt/Malnutrition Patient General Information Nutritional Screening Moderate Risk Diagnosis Psychosis Pertinent Medical Hx/Surgical Hx Afib, DM, Hyperlipidemia, HTN, Schizoaffective Disorder Subjective Information Pt is a 74-year-old female admitted on 09/27 d/t pt screaming and throwing thing, delusional. Pt is eating an estimated 65% of meals x 3 days (average) Per Meal/ Nutrition Activity Record. Dietary is currently providing an estimated 2500 kcals and 100 gm Pro, per Pt PO intake this is providing an estimated 1625 kcals and 65gm Pro to meet 100% kcal and 100% Pro needs. Recommend CCHO added to Diet Rx as pt had labs (09/27) A1c 6.1%. Spoke with nurse Enriquez pertaining to recommendation. Anthropometrics HT: 54 WT: 158 LB (71.82 kg) ABW: 130 LB (58.86 kg) BMI: 27.12 (Overweight) GI/ Skin Integrity GI: WNL, Soft, Non-tender BM: 09/30 x1 I/O: 720/Not Noted Skin: WNL, Intact Jewel: 16 Diet Order: Pureed Estimated Energy Needs: ( Geriatric, ABW) 4348-2718 kcals (25-30 kcals/ kg) 60-70g Pro (1.0-1.2 g/kg) 4813-2261 ml (25-30 ml/kg) Current Diet Order/ Nutrition Support Pureed Pertinent Medications Maalox (PRN), Colace, Lasix, MOM (PRN) Pertinent Labs 09/27: A1c 6.1%, BUN/Cr 43/1. 64, Na 131, HDL 33 Nutritional Hx/Data Height 5 ft 4 in Height (Calculated Centimeters) 162.6 Current Weight (lbs) 158 lb Weight (Calculated Kilograms) 71.7 Weight (Calculated Grams) 53907.6 [place] Body Weight 120 LB (54.44 kg) % [place] Body Weight 132 Body Mass Index (BMI) 27.1 Weight Status Overweight GI Symptoms GI Symptoms None Last BM 09/30 x1 Skin Integrity/Comment: Skin: WNL, Intact Jewel: 16 Current %PO Fair (50-74%) Estimated Nutritional Goals BEE in Kcals: Adj wt of IBW Calories/Kcals/Kg 25-30 Kcals Calculated 8319-7489 Protein: Adj wt of IBW Protein g/k.0-1.2 Protein Calculated 60-70 Fluid: ml 6489-7385 ml (25-30 ml/kg) Nutritional Problem No current Nutrition Prob Problem No nutrition diagnosis at this time. Etiology N/A Signs/Symptoms: N/A Malnutrition Related to Morbid Obesity Malnutrition related to morbid obesity No Intervention/Recommendation Comments Recommend CCHO added to Diet Rx as pt had labs (09/27) A1c 6.1%. Expected Outcomes/Goals Expected Outcomes/Goals 1.PO intake to continue to meet >75% of estimated nutritional needs. 2.Monitor PO intake, wt, nutrition related labs, and skin integrity. 3.F/U as low risk in 7-10 days , 10/08-10/11
--- NOTE | 2019-10-04 22:29 | Progress Notes ---
DATE: SUBJECTIVE: The patient was seen, chart reviewed, and discussed with staff. The patient continues to be very irritable, hostile, labile and disoriented, refusing to speak with me today. Reported by staff to often be verbally aggressive and apparently has poor appetite as she continues to be throwing her food. PLAN: The patient continues to be actively psychotic, unpredictable, so that she will require inpatient care center and treatment. We will monitor on a daily basis for response to medications and titrate meds as needed. JOB# [id number]
[2019-10-05] MEDS: Benztropine 1 MG TAB PO SCH (09:08)
--- NOTE | 2019-10-05 09:48 | Internal Medicine Prog Note ---
Internal Medicine Subjective - Subjective Service Date: 10/05/19 Patient seen and examined:: with staff, chart reviewed Patient is:: awake, verbal, philly chair, confused Patient Complaints of:: other (Diabetic.) Per staff patient has:: no adverse event, no episodes of fall, other (patient slid of chair and was on the back of the philly chair this morning, denies any trauma.) Internal Medicine Objective - Physical Exam Vitals and I&O: Vital Signs Temp 97.0 F 10/05/19 06:25 Pulse 92 10/05/19 09:09 Resp 18 10/05/19 07:34 BP 114/74 10/05/19 09:09 Pulse Ox 98 10/05/19 06:25 Intake & Output 10/04/19 10/05/19 10/05/19 18:59 06:59 18:59 Intake Total 900 240 Balance 900 240 Intake: Oral 900 240 Other: # Voids 4 2 # Bowel Movements 1 Active Medications: Current Medications Acetaminophen (Tylenol) 650 mg PO Q4HR PRN PRN Reason: Mild Pain (Scale 1-3) Stop: 11/27/19 01:01 Acetaminophen (Tylenol) 650 mg PO Q4HR PRN PRN Reason: TEMP ABOVE 100 Stop: 11/28/19 16:02 Al Hydrox/Mg Hydrox/Simethicone (Maalox) 30 ml PO Q6HR PRN PRN Reason: Upset Stomach / Indigestion Stop: 11/27/19 01:01 Benztropine Mesylate (Cogentin) 1 mg PO DAILY [facility] Stop: 11/27/19 08:59 Last Admin: 10/05/19 09:08 Dose: 1 mg Docusate Sodium (Colace) 100 mg PO BID [facility] Stop: 11/27/19 08:59 Last Admin: 10/05/19 09:08 Dose: 100 mg Furosemide (Lasix) 40 mg PO DAILY [facility] Stop: 11/27/19 08:59 Last Admin: 10/05/19 09:08 Dose: 40 mg Haloperidol (Haldol) 5 mg PO BID [facility]; Protocol Stop: 11/27/19 16:59 Last Admin: 10/05/19 09:08 Dose: 5 mg Lorazepam (Ativan) 0.5 mg PO Q4HR PRN; Protocol PRN Reason: Anxiety Stop: 11/27/19 01:01 Last Admin: 10/04/19 21:04 Dose: 0.5 mg Magnesium Hydroxide (Milk Of Magnesia) 30 ml PO HS PRN PRN Reason: Constipation Metoprolol Succinate (Toprol Xl) 100 mg PO DAILY [facility] Stop: 11/27/19 08:59 Last Admin: 10/05/19 09:09 Dose: 100 mg Trazodone HCl (Desyrel) 50 mg PO HS [facility]; Protocol Stop: 11/27/19 20:59 Last Admin: 10/04/19 21:04 Dose: 50 mg Valproate Sodium (Depakene) 250 mg PO BID [facility]; Protocol Stop: 11/27/19 16:59 Last Admin: 10/05/19 09:08 Dose: 250 mg Zolpidem Tartrate (Ambien) 5 mg PO HS PRN PRN Reason: Insomnia Stop: 11/27/19 01:01 Last Admin: 10/04/19 23:45 Dose: 5 mg Physical Exam: Continues to Need close monitoring, Patient is very confused, agitated, acting out. General: weak, demented, NAD HEENT: NC/AT, PERRLA Neck: Supple, No JVD Lungs: other (no acute respiratory distress on RA) Cardiovascular: RRR Abdomen: soft, non-tender Extremities: clear Neurological: no change - Procedures Procedures: Procedures Procedure Code Date OTHER GROUP THERAPY 94.44 05/10/15 RECREATIONAL THERAPY 93.81 12/31/07 Internal Medicine Assmt/Plan - Assessment Assessment: Schizoaffective disorder. Psychosis. Delusional. History of Afib. Diabetes. Hyperlipidemia. Hypertension. - Plan Plan: Safety precaution. Monitor vitals and labs. Continue present meds as directed. Supportive care. Accu-check twice daily. Monitor diet and nutritional support. Psych management as per Psych. Continue current treatment plan. Nutritional Asmnt/Malnutr-PDOC - Dietary Evaluation Malnutrition Findings (Please click <Entered> for more info): Nutritional Asmnt/Malnutrition Start: 10/01/19 14: 07 Text: Status: Complete Freq: Protocol: Document 10/01/19 14:07 DALE (Rec: 10/01/19 14:10 [email or web address]) Nutritional Asmnt/Malnutrition Patient General Information Nutritional Screening Moderate Risk Diagnosis Psychosis Pertinent Medical Hx/Surgical Hx Afib, DM, Hyperlipidemia, HTN, Schizoaffective Disorder Subjective Information Pt is a 74-year-old female admitted on 09/27 d/t pt screaming and throwing thing, delusional. Pt is eating an estimated 65% of meals x 3 days (average) Per Meal/ Nutrition Activity Record. Dietary is currently providing an estimated 2500 kcals and 100 gm Pro, per Pt PO intake this is providing an estimated 1625 kcals and 65gm Pro to meet 100% kcal and 100% Pro needs. Recommend CCHO added to Diet Rx as pt had labs (09/27) A1c 6.1%. Spoke with nurse Enriquez pertaining to recommendation. Anthropometrics HT: 54 WT: 158 LB (71.82 kg) ABW: 130 LB (58.86 kg) BMI: 27.12 (Overweight) GI/ Skin Integrity GI: WNL, Soft, Non-tender BM: 09/30 x1 I/O: 720/Not Noted Skin: WNL, Intact Jewel: 16 Diet Order: Pureed Estimated Energy Needs: ( Geriatric, ABW) 0856-6700 kcals (25-30 kcals/ kg) 60-70g Pro (1.0-1.2 g/kg) 3898-4072 ml (25-30 ml/kg) Current Diet Order/ Nutrition Support Pureed Pertinent Medications Maalox (PRN), Colace, Lasix, MOM (PRN) Pertinent Labs 09/27: A1c 6.1%, BUN/Cr 43/1. 64, Na 131, HDL 33 Nutritional Hx/Data Height 1.63 m Height (Calculated Centimeters) 162.6 Current Weight (lbs) 71.668 kg Weight (Calculated Kilograms) 71.7 Weight (Calculated Grams) 58788.6 [place] Body Weight 120 LB (54.44 kg) % [place] Body Weight 132 Body Mass Index (BMI) 27.1 Weight Status Overweight GI Symptoms GI Symptoms None Last BM 09/30 x1 Skin Integrity/Comment: Skin: WNL, Intact Jewel: 16 Current %PO Fair (50-74%) Estimated Nutritional Goals BEE in Kcals: Adj wt of IBW Calories/Kcals/Kg 25-30 Kcals Calculated 1441-4584 Protein: Adj wt of IBW Protein g/k.0-1.2 Protein Calculated 60-70 Fluid: ml 5309-7396 ml (25-30 ml/kg) Nutritional Problem No current Nutrition Prob Problem No nutrition diagnosis at this time. Etiology N/A Signs/Symptoms: N/A Malnutrition Related to Morbid Obesity Malnutrition related to morbid obesity No Intervention/Recommendation Comments Recommend CCHO added to Diet Rx as pt had labs (09/27) A1c 6.1%. Expected Outcomes/Goals Expected Outcomes/Goals 1.PO intake to continue to meet >75% of estimated nutritional needs. 2.Monitor PO intake, wt, nutrition related labs, and skin integrity. 3.F/U as low risk in 7-10 days , 10/08-10/11
--- NOTE | 2019-10-05 19:50 | Progress Notes ---
DATE: 10/05/2019 Case was discussed with staff of the patient, reviewed records. Covering for Dr. Echeverria. This is a 74-year-old female who was admitted on 09/27/2019 from [place]. The patient was irritable, agitated, throwing food, screaming, cursing, intrusive. She had to be put at the beginning in the isolation room because of her severe agitation. The patient continues to have poor insight, unpredictable, impulsive, needing redirection, but in general, she is calmer compared to when she came. Continues to have poor insight in general, demented, confused, unable to make safe plan for self-care and review behavior. We will continue outpatient group therapy, milieu therapy, and adjust the medication as needed. JOB# [id number]
[2019-10-06] MEDS: Benztropine 1 MG TAB PO SCH (09:09)
--- NOTE | 2019-10-06 16:13 | Internal Medicine Prog Note ---
Internal Medicine Subjective - Subjective Service Date: 10/06/19 Patient is:: awake, verbal, philly chair, confused Patient Complaints of:: other (Diabetic.) Per staff patient has:: no adverse event, no episodes of fall, other (patient slid of chair and was on the back of the philly chair this morning, denies any trauma.) Internal Medicine Objective - Physical Exam Vitals and I&O: Vital Signs Temp 97.1 F 10/06/19 14:13 Pulse 67 10/06/19 14:13 Resp 18 10/06/19 14:13 BP 105/57 10/06/19 14:13 Pulse Ox 94 10/06/19 14:13 Intake & Output 10/05/19 10/06/19 10/06/19 18:59 06:59 18:59 Intake Total 240 Balance 240 Intake: Oral 240 Other: # Voids 4 2 # Bowel Movements 1 Active Medications: Current Medications Acetaminophen (Tylenol) 650 mg PO Q4HR PRN PRN Reason: Mild Pain (Scale 1-3) Stop: 11/27/19 01:01 Acetaminophen (Tylenol) 650 mg PO Q4HR PRN PRN Reason: TEMP ABOVE 100 Stop: 11/28/19 16:02 Al Hydrox/Mg Hydrox/Simethicone (Maalox) 30 ml PO Q6HR PRN PRN Reason: Upset Stomach / Indigestion Stop: 11/27/19 01:01 Benztropine Mesylate (Cogentin) 1 mg PO DAILY [facility] Stop: 11/27/19 08:59 Last Admin: 10/06/19 09:09 Dose: 1 mg Docusate Sodium (Colace) 100 mg PO BID [facility] Stop: 11/27/19 08:59 Last Admin: 10/06/19 09:09 Dose: 100 mg Furosemide (Lasix) 40 mg PO DAILY [facility] Stop: 11/27/19 08:59 Last Admin: 10/06/19 09:10 Dose: 40 mg Haloperidol (Haldol) 5 mg PO BID [facility]; Protocol Stop: 11/27/19 16:59 Last Admin: 10/06/19 09:10 Dose: 5 mg Lorazepam (Ativan) 0.5 mg PO Q4HR PRN; Protocol PRN Reason: Anxiety Stop: 11/27/19 01:01 Last Admin: 10/04/19 21:04 Dose: 0.5 mg Magnesium Hydroxide (Milk Of Magnesia) 30 ml PO HS PRN PRN Reason: Constipation Metoprolol Succinate (Toprol Xl) 100 mg PO DAILY [facility] Stop: 11/27/19 08:59 Last Admin: 10/06/19 09:10 Dose: 100 mg Trazodone HCl (Desyrel) 50 mg PO HS [facility]; Protocol Stop: 11/27/19 20:59 Last Admin: 10/05/19 21:40 Dose: 50 mg Valproate Sodium (Depakene) 250 mg PO BID [facility]; Protocol Stop: 11/27/19 16:59 Last Admin: 10/06/19 09:11 Dose: 250 mg Zolpidem Tartrate (Ambien) 5 mg PO HS PRN PRN Reason: Insomnia Stop: 11/27/19 01:01 Last Admin: 10/05/19 23:25 Dose: 5 mg General: weak, demented, NAD HEENT: NC/AT, PERRLA Neck: Supple, No JVD Lungs: other (no acute respiratory distress on RA) Cardiovascular: RRR Abdomen: soft, non-tender Extremities: clear Neurological: no change - Procedures Procedures: Procedures Procedure Code Date OTHER GROUP THERAPY 94.44 05/10/15 RECREATIONAL THERAPY 93.81 12/31/07 Internal Medicine Assmt/Plan - Assessment Assessment: Schizoaffective Disorder. Psychosis Delusional Hx afib Diabetes. Hyperlipidemia. Hypertension. - Plan Plan: Continue current treatment plan. Continue current medications Continue to monitor VS Monitor Diet/Nutritional support. Psych management per Psychiatry. Pain Management. PT/OT prn Safety precaution, Fall precaution, frequent nursing round. Supportive care. Continue collaborating with consulting specialists, case management and nursing team Nutritional Asmnt/Malnutr-PDOC - Dietary Evaluation Malnutrition Findings (Please click <Entered> for more info): Nutritional Asmnt/Malnutrition Start: 10/01/19 14: 07 Text: Status: Complete Freq: Protocol: Document 10/01/19 14:07 DALE (Rec: 10/01/19 14:10 [facility] [email or web address]) Nutritional Asmnt/Malnutrition Patient General Information Nutritional Screening Moderate Risk Diagnosis Psychosis Pertinent Medical Hx/Surgical Hx Afib, DM, Hyperlipidemia, HTN, Schizoaffective Disorder Subjective Information Pt is a 74-year-old female admitted on 09/27 d/t pt screaming and throwing thing, delusional. Pt is eating an estimated 65% of meals x 3 days (average) Per Meal/ Nutrition Activity Record. Dietary is currently providing an estimated 2500 kcals and 100 gm Pro, per Pt PO intake this is providing an estimated 1625 kcals and 65gm Pro to meet 100% kcal and 100% Pro needs. Recommend CCHO added to Diet Rx as pt had labs (09/27) A1c 6.1%. Spoke with nurse Enriquez pertaining to recommendation. Anthropometrics HT: 54 WT: 158 LB (71.82 kg) ABW: 130 LB (58.86 kg) BMI: 27.12 (Overweight) GI/ Skin Integrity GI: WNL, Soft, Non-tender BM: 09/30 x1 I/O: 720/Not Noted Skin: WNL, Intact Jewel: 16 Diet Order: Pureed Estimated Energy Needs: ( Geriatric, ABW) 1438-9207 kcals (25-30 kcals/ kg) 60-70g Pro (1.0-1.2 g/kg) 3296-5305 ml (25-30 ml/kg) Current Diet Order/ Nutrition Support Pureed Pertinent Medications Maalox (PRN), Colace, Lasix, MOM (PRN) Pertinent Labs 09/27: A1c 6.1%, BUN/Cr 43/1. 64, Na 131, HDL 33 Nutritional Hx/Data Height 5 ft 4 in Height (Calculated Centimeters) 162.6 Current Weight (lbs) 158 lb Weight (Calculated Kilograms) 71.7 Weight (Calculated Grams) 71510.6 [place] Body Weight 120 LB (54.44 kg) % [place] Body Weight 132 Body Mass Index (BMI) 27.1 Weight Status Overweight GI Symptoms GI Symptoms None Last BM 09/30 x1 Skin Integrity/Comment: Skin: WNL, Intact Jewel: 16 Current %PO Fair (50-74%) Estimated Nutritional Goals BEE in Kcals: Adj wt of IBW Calories/Kcals/Kg 25-30 Kcals Calculated 9470-3889 Protein: Adj wt of IBW Protein g/k.0-1.2 Protein Calculated 60-70 Fluid: ml 3667-3979 ml (25-30 ml/kg) Nutritional Problem No current Nutrition Prob Problem No nutrition diagnosis at this time. Etiology N/A Signs/Symptoms: N/A Malnutrition Related to Morbid Obesity Malnutrition related to morbid obesity No Intervention/Recommendation Comments Recommend CCHO added to Diet Rx as pt had labs (09/27) A1c 6.1%. Expected Outcomes/Goals Expected Outcomes/Goals 1.PO intake to continue to meet >75% of estimated nutritional needs. 2.Monitor PO intake, wt, nutrition related labs, and skin integrity. 3.F/U as low risk in 7-10 days , 10/08-10/11
--- NOTE | 2019-10-06 23:40 | Progress Notes ---
DATE: Case was discussed with staff of the patient, reviewed records. The patient was in the isolation room. Continues to have episodes of agitation and irritability, continues to be unpredictable, impulsive with episode of throwing food screaming, cursing, intrusive. No side effects with the medication, no sedation, no nausea, no extrapyramidal symptoms and she is on Haldol 5 mg twice a day and Depakote 250 mg 3 times a day. We will continue outpatient group therapy, milieu therapy, and adjust medication as needed. JOB# [id number]
[2019-10-07] MEDS: Benztropine 1 MG TAB PO SCH (09:04)
--- NOTE | 2019-10-07 19:04 | Internal Medicine Prog Note ---
Internal Medicine Subjective - Subjective Service Date: 10/07/19 Patient seen and examined:: with staff Patient is:: awake, verbal, philly chair, confused Patient Complaints of:: other (Diabetic.) Per staff patient has:: no adverse event, no episodes of fall, other (patient slid of chair and was on the back of the philly chair this morning, denies any trauma.) Internal Medicine Objective - Physical Exam Vitals and I&O: Vital Signs Temp 97.3 F 10/07/19 17:06 Pulse 76 10/07/19 17:06 Resp 20 10/07/19 17:06 BP 123/69 10/07/19 17:06 Pulse Ox 98 10/07/19 17:06 Intake & Output 10/07/19 10/07/19 10/08/19 06:59 18:59 06:59 Intake Total 120 Balance 120 Intake: Oral 120 Other: # Voids 3 Active Medications: Current Medications Acetaminophen (Tylenol) 650 mg PO Q4HR PRN PRN Reason: Mild Pain (Scale 1-3) Stop: 11/27/19 01:01 Acetaminophen (Tylenol) 650 mg PO Q4HR PRN PRN Reason: TEMP ABOVE 100 Stop: 11/28/19 16:02 Al Hydrox/Mg Hydrox/Simethicone (Maalox) 30 ml PO Q6HR PRN PRN Reason: Upset Stomach / Indigestion Stop: 11/27/19 01:01 Benztropine Mesylate (Cogentin) 1 mg PO DAILY [facility] Stop: 11/27/19 08:59 Last Admin: 10/07/19 09:04 Dose: 1 mg Docusate Sodium (Colace) 100 mg PO BID [facility] Stop: 11/27/19 08:59 Last Admin: 10/07/19 17:14 Dose: 100 mg Furosemide (Lasix) 40 mg PO DAILY [facility] Stop: 11/27/19 08:59 Last Admin: 10/07/19 09:01 Dose: Not Given Haloperidol (Haldol) 5 mg PO BID [facility]; Protocol Stop: 11/27/19 16:59 Last Admin: 10/07/19 17:14 Dose: 5 mg Lorazepam (Ativan) 0.5 mg PO Q4HR PRN; Protocol PRN Reason: Anxiety Stop: 11/27/19 01:01 Last Admin: 10/04/19 21:04 Dose: 0.5 mg Magnesium Hydroxide (Milk Of Magnesia) 30 ml PO HS PRN PRN Reason: Constipation Metoprolol Succinate (Toprol Xl) 100 mg PO DAILY [facility] Stop: 11/27/19 08:59 Last Admin: 10/07/19 09:03 Dose: Not Given Trazodone HCl (Desyrel) 50 mg PO HS [facility]; Protocol Stop: 11/27/19 20:59 Last Admin: 10/06/19 20:34 Dose: 50 mg Valproate Sodium (Depakene) 250 mg PO BID [facility]; Protocol Stop: 11/27/19 16:59 Last Admin: 10/07/19 17:14 Dose: 250 mg Zolpidem Tartrate (Ambien) 5 mg PO HS PRN PRN Reason: Insomnia Stop: 11/27/19 01:01 Last Admin: 10/05/19 23:25 Dose: 5 mg Physical Exam: Continues to Need close monitoring, Patient is screaming using fowl language, very unpredictable. General: weak, demented, NAD HEENT: NC/AT, PERRLA Neck: Supple, No JVD Lungs: other (no acute respiratory distress on RA) Cardiovascular: RRR Abdomen: soft, non-tender Extremities: clear Neurological: no change - Procedures Procedures: Procedures Procedure Code Date OTHER GROUP THERAPY 94.44 05/10/15 RECREATIONAL THERAPY 93.81 12/31/07 Internal Medicine Assmt/Plan - Assessment Assessment: Schizoaffective disorder. Psychosis. Delusional. History of Afib. Diabetes. Hyperlipidemia. Hypertension. - Plan Plan: Monitor vitals and labs. Continue present meds as directed. Supportive care. Accu-check twice daily. Safety precaution. Monitor diet and nutritional support. Psych management as per Psych. Continue current treatment plan. Nutritional Asmnt/Malnutr-PDOC - Dietary Evaluation Malnutrition Findings (Please click <Entered> for more info): Nutritional Asmnt/Malnutrition Start: 10/01/19 14: 07 Text: Status: Complete Freq: Protocol: Document 10/01/19 14:07 DALE (Rec: 10/01/19 14:10 [email or web address]) Nutritional Asmnt/Malnutrition Patient General Information Nutritional Screening Moderate Risk Diagnosis Psychosis Pertinent Medical Hx/Surgical Hx Afib, DM, Hyperlipidemia, HTN, Schizoaffective Disorder Subjective Information Pt is a 74-year-old female admitted on 09/27 d/t pt screaming and throwing thing, delusional. Pt is eating an estimated 65% of meals x 3 days (average) Per Meal/ Nutrition Activity Record. Dietary is currently providing an estimated 2500 kcals and 100 gm Pro, per Pt PO intake this is providing an estimated 1625 kcals and 65gm Pro to meet 100% kcal and 100% Pro needs. Recommend CCHO added to Diet Rx as pt had labs (09/27) A1c 6.1%. Spoke with nurse Enriquez pertaining to recommendation. Anthropometrics HT: 54 WT: 158 LB (71.82 kg) ABW: 130 LB (58.86 kg) BMI: 27.12 (Overweight) GI/ Skin Integrity GI: WNL, Soft, Non-tender BM: 09/30 x1 I/O: 720/Not Noted Skin: WNL, Intact Jewel: 16 Diet Order: Pureed Estimated Energy Needs: ( Geriatric, ABW) 8719-5660 kcals (25-30 kcals/ kg) 60-70g Pro (1.0-1.2 g/kg) 4614-0490 ml (25-30 ml/kg) Current Diet Order/ Nutrition Support Pureed Pertinent Medications Maalox (PRN), Colace, Lasix, MOM (PRN) Pertinent Labs 09/27: A1c 6.1%, BUN/Cr 43/1. 64, Na 131, HDL 33 Nutritional Hx/Data Height 1.63 m Height (Calculated Centimeters) 162.6 Current Weight (lbs) 71.668 kg Weight (Calculated Kilograms) 71.7 Weight (Calculated Grams) 09018.6 [place] Body Weight 120 LB (54.44 kg) % [place] Body Weight 132 Body Mass Index (BMI) 27.1 Weight Status Overweight GI Symptoms GI Symptoms None Last BM 09/30 x1 Skin Integrity/Comment: Skin: WNL, Intact Jewel: 16 Current %PO Fair (50-74%) Estimated Nutritional Goals BEE in Kcals: Adj wt of IBW Calories/Kcals/Kg 25-30 Kcals Calculated 5026-1602 Protein: Adj wt of IBW Protein g/k.0-1.2 Protein Calculated 60-70 Fluid: ml 2126-9095 ml (25-30 ml/kg) Nutritional Problem No current Nutrition Prob Problem No nutrition diagnosis at this time. Etiology N/A Signs/Symptoms: N/A Malnutrition Related to Morbid Obesity Malnutrition related to morbid obesity No Intervention/Recommendation Comments Recommend CCHO added to Diet Rx as pt had labs (09/27) A1c 6.1%. Expected Outcomes/Goals Expected Outcomes/Goals 1.PO intake to continue to meet >75% of estimated nutritional needs. 2.Monitor PO intake, wt, nutrition related labs, and skin integrity. 3.F/U as low risk in 7-10 days , 10/08-10/11
--- NOTE | 2019-10-07 23:01 | Progress Notes ---
DATE: Case was discussed with staff of patient, reviewed records. The patient continues to be agitated, irritable, banging on the table, continues to be agitated, continues to be unpredictable, impulsive, needing redirection. She is sleeping well, eating well. No side effects with the medication, no sedation, no nausea, no extrapyramidal symptoms. I will be checking her Depakote level to see if need to be adjusted and I will continue outpatient group therapy, milieu therapy, and adjust the medication as needed. JOB# [id number]
[2019-10-08] MEDS: Benztropine 1 MG TAB PO SCH (09:25)
--- NOTE | 2019-10-08 12:58 | Internal Medicine Prog Note ---
Internal Medicine Subjective - Subjective Service Date: 10/08/19 Patient is:: awake, verbal, philly chair, confused Patient Complaints of:: other (Diabetic.) Per staff patient has:: no adverse event, no episodes of fall, other (patient slid of chair and was on the back of the philly chair this morning, denies any trauma.) Internal Medicine Objective - Physical Exam Vitals and I&O: Vital Signs Temp 98.2 F 10/07/19 20:30 Pulse 98 10/08/19 09:32 Resp 19 10/07/19 20:30 BP 139/66 10/08/19 09:32 Pulse Ox 96 10/07/19 20:30 Intake & Output 10/07/19 10/08/19 10/08/19 18:59 06:59 18:59 Intake Total 240 Output Total 1 Balance 239 Intake: Oral 240 Output: Urine/Stool Mix 1 Other: # Voids 2 Active Medications: Current Medications Acetaminophen (Tylenol) 650 mg PO Q4HR PRN PRN Reason: Mild Pain (Scale 1-3) Stop: 11/27/19 01:01 Acetaminophen (Tylenol) 650 mg PO Q4HR PRN PRN Reason: TEMP ABOVE 100 Stop: 11/28/19 16:02 Al Hydrox/Mg Hydrox/Simethicone (Maalox) 30 ml PO Q6HR PRN PRN Reason: Upset Stomach / Indigestion Stop: 11/27/19 01:01 Benztropine Mesylate (Cogentin) 1 mg PO DAILY [facility] Stop: 11/27/19 08:59 Last Admin: 10/08/19 09:25 Dose: 1 mg Docusate Sodium (Colace) 100 mg PO BID [facility] Stop: 11/27/19 08:59 Last Admin: 10/08/19 09:25 Dose: 100 mg Furosemide (Lasix) 40 mg PO DAILY [facility] Stop: 11/27/19 08:59 Last Admin: 10/08/19 09:31 Dose: 40 mg Haloperidol (Haldol) 5 mg PO BID [facility]; Protocol Stop: 11/27/19 16:59 Last Admin: 10/08/19 09:25 Dose: 5 mg Lorazepam (Ativan) 0.5 mg PO Q4HR PRN; Protocol PRN Reason: Anxiety Stop: 11/27/19 01:01 Last Admin: 10/04/19 21:04 Dose: 0.5 mg Magnesium Hydroxide (Milk Of Magnesia) 30 ml PO HS PRN PRN Reason: Constipation Metoprolol Succinate (Toprol Xl) 100 mg PO DAILY [facility] Stop: 11/27/19 08:59 Last Admin: 10/08/19 09:32 Dose: 100 mg Trazodone HCl (Desyrel) 50 mg PO HS [facility]; Protocol Stop: 11/27/19 20:59 Last Admin: 10/07/19 20:54 Dose: 50 mg Valproate Sodium (Depakene) 250 mg PO BID [facility]; Protocol Stop: 11/27/19 16:59 Last Admin: 10/08/19 09:25 Dose: 250 mg Zolpidem Tartrate (Ambien) 5 mg PO HS PRN PRN Reason: Insomnia Stop: 11/27/19 01:01 Last Admin: 10/05/19 23:25 Dose: 5 mg General: weak, demented, NAD HEENT: NC/AT, PERRLA Neck: Supple, No JVD Lungs: other (no acute respiratory distress on RA) Cardiovascular: RRR Abdomen: soft, non-tender Extremities: clear Neurological: no change - Procedures Procedures: Procedures Procedure Code Date OTHER GROUP THERAPY 94.44 05/10/15 RECREATIONAL THERAPY 93.81 12/31/07 Internal Medicine Assmt/Plan - Assessment Assessment: Schizoaffective Disorder. Psychosis Delusional Hx afib Diabetes. Hyperlipidemia. Hypertension. - Plan Plan: Continue current treatment plan. Continue current medications Continue to monitor VS Monitor Diet/Nutritional support. Psych management per Psychiatry. Pain Management. PT/OT prn Safety precaution, Fall precaution, frequent nursing round. Supportive care. Continue collaborating with consulting specialists, case management and nursing team Nutritional Asmnt/Malnutr-PDOC - Dietary Evaluation Malnutrition Findings (Please click <Entered> for more info): Nutritional Asmnt/Malnutrition Start: 10/01/19 14: 07 Text: Status: Complete Freq: Protocol: Document 10/01/19 14:07 DALE (Rec: 10/01/19 14:10 [email or web address]) Nutritional Asmnt/Malnutrition Patient General Information Nutritional Screening Moderate Risk Diagnosis Psychosis Pertinent Medical Hx/Surgical Hx Afib, DM, Hyperlipidemia, HTN, Schizoaffective Disorder Subjective Information Pt is a 74-year-old female admitted on 09/27 d/t pt screaming and throwing thing, delusional. Pt is eating an estimated 65% of meals x 3 days (average) Per Meal/ Nutrition Activity Record. Dietary is currently providing an estimated 2500 kcals and 100 gm Pro, per Pt PO intake this is providing an estimated 1625 kcals and 65gm Pro to meet 100% kcal and 100% Pro needs. Recommend CCHO added to Diet Rx as pt had labs (09/27) A1c 6.1%. Spoke with nurse Enriquez pertaining to recommendation. Anthropometrics HT: 54 WT: 158 LB (71.82 kg) ABW: 130 LB (58.86 kg) BMI: 27.12 (Overweight) GI/ Skin Integrity GI: WNL, Soft, Non-tender BM: 09/30 x1 I/O: 720/Not Noted Skin: WNL, Intact Jewel: 16 Diet Order: Pureed Estimated Energy Needs: ( Geriatric, ABW) 4574-2678 kcals (25-30 kcals/ kg) 60-70g Pro (1.0-1.2 g/kg) 5164-0963 ml (25-30 ml/kg) Current Diet Order/ Nutrition Support Pureed Pertinent Medications Maalox (PRN), Colace, Lasix, MOM (PRN) Pertinent Labs 09/27: A1c 6.1%, BUN/Cr 43/1. 64, Na 131, HDL 33 Nutritional Hx/Data Height 5 ft 4 in Height (Calculated Centimeters) 162.6 Current Weight (lbs) 158 lb Weight (Calculated Kilograms) 71.7 Weight (Calculated Grams) 80728.6 [place] Body Weight 120 LB (54.44 kg) % [place] Body Weight 132 Body Mass Index (BMI) 27.1 Weight Status Overweight GI Symptoms GI Symptoms None Last BM 09/30 x1 Skin Integrity/Comment: Skin: WNL, Intact Jewel: 16 Current %PO Fair (50-74%) Estimated Nutritional Goals BEE in Kcals: Adj wt of IBW Calories/Kcals/Kg 25-30 Kcals Calculated 7113-6488 Protein: Adj wt of IBW Protein g/k.0-1.2 Protein Calculated 60-70 Fluid: ml 2897-8283 ml (25-30 ml/kg) Nutritional Problem No current Nutrition Prob Problem No nutrition diagnosis at this time. Etiology N/A Signs/Symptoms: N/A Malnutrition Related to Morbid Obesity Malnutrition related to morbid obesity No Intervention/Recommendation Comments Recommend CCHO added to Diet Rx as pt had labs (09/27) A1c 6.1%. Expected Outcomes/Goals Expected Outcomes/Goals 1.PO intake to continue to meet >75% of estimated nutritional needs. 2.Monitor PO intake, wt, nutrition related labs, and skin integrity. 3.F/U as low risk in 7-10 days , 10/08-10/11
--- NOTE | 2019-10-08 18:18 | Progress Notes ---
DATE: 10/08/2019 SUBJECTIVE: Case was discussed with staff of the patient, reviewed records. The patient continues to be acting out. Continues to have poor insight, easily agitated, continues to be unpredictable, impulsive, needing redirection. Her sleep and appetite varies, a high strung. No side effects with the medication, no sedation, no nausea, no extrapyramidal symptoms. We will continue outpatient group therapy, milieu therapy, and adjust medication as needed. JOB# [id number]
[2019-10-09] MEDS: Benztropine 1 MG TAB PO SCH (09:23)
--- NOTE | 2019-10-09 10:31 | Internal Medicine Prog Note ---
Internal Medicine Subjective - Subjective Service Date: 10/09/19 Patient seen and examined:: with staff Patient is:: awake, verbal, philly chair, confused Patient Complaints of:: other (Diabetic.) Per staff patient has:: no adverse event, no episodes of fall, other (patient slid of chair and was on the back of the philly chair this morning, denies any trauma.) Internal Medicine Objective - Physical Exam Vitals and I&O: Vital Signs Temp 97.6 F 10/09/19 06:19 Pulse 83 10/09/19 09:20 Resp 20 10/09/19 06:19 BP 112/72 10/09/19 09:23 Pulse Ox 97 10/09/19 06:19 Intake & Output 10/08/19 10/09/19 10/09/19 18:59 06:59 18:59 Intake Total 1200 240 Output Total 1 Balance 1200 239 Intake: Oral 1200 240 Output: Urine/Stool Mix 1 Other: # Voids 1 # Bowel Movements 2 Active Medications: Current Medications Acetaminophen (Tylenol) 650 mg PO Q4HR PRN PRN Reason: Mild Pain (Scale 1-3) Stop: 11/27/19 01:01 Acetaminophen (Tylenol) 650 mg PO Q4HR PRN PRN Reason: TEMP ABOVE 100 Stop: 11/28/19 16:02 Al Hydrox/Mg Hydrox/Simethicone (Maalox) 30 ml PO Q6HR PRN PRN Reason: Upset Stomach / Indigestion Stop: 11/27/19 01:01 Benztropine Mesylate (Cogentin) 1 mg PO DAILY [facility] Stop: 11/27/19 08:59 Last Admin: 10/09/19 09:23 Dose: 1 mg Docusate Sodium (Colace) 100 mg PO BID [facility] Stop: 11/27/19 08:59 Last Admin: 10/09/19 09:23 Dose: 100 mg Furosemide (Lasix) 40 mg PO DAILY [facility] Stop: 11/27/19 08:59 Last Admin: 10/09/19 09:23 Dose: 40 mg Haloperidol (Haldol) 7.5 mg PO BID [facility]; Protocol Stop: 12/08/19 08:59 Last Admin: 10/09/19 09:21 Dose: 7.5 mg Lorazepam (Ativan) 0.5 mg PO Q4HR PRN; Protocol PRN Reason: Anxiety Stop: 11/27/19 01:01 Last Admin: 10/08/19 23:50 Dose: 0.5 mg Magnesium Hydroxide (Milk Of Magnesia) 30 ml PO HS PRN PRN Reason: Constipation Metoprolol Succinate (Toprol Xl) 100 mg PO DAILY [facility] Stop: 11/27/19 08:59 Last Admin: 10/09/19 09:20 Dose: 100 mg Trazodone HCl (Desyrel) 50 mg PO HS [facility]; Protocol Stop: 11/27/19 20:59 Last Admin: 10/08/19 21:47 Dose: 50 mg Valproate Sodium (Depakene) 500 mg PO BID [facility]; Protocol Stop: 12/08/19 08:59 Last Admin: 10/09/19 09:20 Dose: 500 mg Zolpidem Tartrate (Ambien) 5 mg PO HS PRN PRN Reason: Insomnia Stop: 11/27/19 01:01 Last Admin: 10/08/19 21:48 Dose: 5 mg Physical Exam: Continues to Need close monitoring, Patient is still acting out, screaming at times, speaking obscene, abusive language. General: weak, demented, NAD HEENT: NC/AT, PERRLA Neck: Supple, No JVD Lungs: other (no acute respiratory distress on RA) Cardiovascular: RRR Abdomen: soft, non-tender Extremities: clear Neurological: no change - Procedures Procedures: Procedures Procedure Code Date OTHER GROUP THERAPY 94.44 05/10/15 RECREATIONAL THERAPY 93.81 12/31/07 Internal Medicine Assmt/Plan - Assessment Assessment: Schizoaffective disorder. Psychosis. Delusional. History of Afib. Diabetes. Hyperlipidemia. Hypertension. - Plan Plan: Monitor vitals and labs. Continue present meds as directed. Supportive care. Accu-check twice daily. Safety precaution. Monitor diet and nutritional support. Psych management as per Psych. Continue current treatment plan. Nutritional Asmnt/Malnutr-PDOC - Dietary Evaluation Malnutrition Findings (Please click <Entered> for more info): Nutritional Asmnt/Malnutrition Start: 10/01/19 14: 07 Text: Status: Complete Freq: Protocol: Document 10/01/19 14:07 DALE (Rec: 10/01/19 14:10 DALE [email or web address]) Nutritional Asmnt/Malnutrition Patient General Information Nutritional Screening Moderate Risk Diagnosis Psychosis Pertinent Medical Hx/Surgical Hx Afib, DM, Hyperlipidemia, HTN, Schizoaffective Disorder Subjective Information Pt is a 74-year-old female admitted on 09/27 d/t pt screaming and throwing thing, delusional. Pt is eating an estimated 65% of meals x 3 days (average) Per Meal/ Nutrition Activity Record. Dietary is currently providing an estimated 2500 kcals and 100 gm Pro, per Pt PO intake this is providing an estimated 1625 kcals and 65gm Pro to meet 100% kcal and 100% Pro needs. Recommend CCHO added to Diet Rx as pt had labs (09/27) A1c 6.1%. Spoke with nurse Zoe pertaining to recommendation. Anthropometrics HT: 54 WT: 158 LB (71.82 kg) ABW: 130 LB (58.86 kg) BMI: 27.12 (Overweight) GI/ Skin Integrity GI: WNL, Soft, Non-tender BM: 09/30 x1 I/O: 720/Not Noted Skin: WNL, Intact Jewel: 16 Diet Order: Pureed Estimated Energy Needs: ( Geriatric, ABW) 7815-9897 kcals (25-30 kcals/ kg) 60-70g Pro (1.0-1.2 g/kg) 7676-9174 ml (25-30 ml/kg) Current Diet Order/ Nutrition Support Pureed Pertinent Medications Maalox (PRN), Colace, Lasix, MOM (PRN) Pertinent Labs 09/27: A1c 6.1%, BUN/Cr 43/1. 64, Na 131, HDL 33 Nutritional Hx/Data Height 1.63 m Height (Calculated Centimeters) 162.6 Current Weight (lbs) 71.668 kg Weight (Calculated Kilograms) 71.7 Weight (Calculated Grams) 06821.6 [place] Body Weight 120 LB (54.44 kg) % [place] Body Weight 132 Body Mass Index (BMI) 27.1 Weight Status Overweight GI Symptoms GI Symptoms None Last BM 09/30 x1 Skin Integrity/Comment: Skin: WNL, Intact Jewel: 16 Current %PO Fair (50-74%) Estimated Nutritional Goals BEE in Kcals: Adj wt of IBW Calories/Kcals/Kg 25-30 Kcals Calculated 7494-7363 Protein: Adj wt of IBW Protein g/k.0-1.2 Protein Calculated 60-70 Fluid: ml 7820-1775 ml (25-30 ml/kg) Nutritional Problem No current Nutrition Prob Problem No nutrition diagnosis at this time. Etiology N/A Signs/Symptoms: N/A Malnutrition Related to Morbid Obesity Malnutrition related to morbid obesity No Intervention/Recommendation Comments Recommend CCHO added to Diet Rx as pt had labs (09/27) A1c 6.1%. Expected Outcomes/Goals Expected Outcomes/Goals 1.PO intake to continue to meet >75% of estimated nutritional needs. 2.Monitor PO intake, wt, nutrition related labs, and skin integrity. 3.F/U as low risk in 7-10 days , 10/08-10/11
--- NOTE | 2019-10-10 00:11 | Progress Notes ---
DATE: 10/09/2019 SUBJECTIVE: Chart was reviewed and the patient interviewed. Also discussed the patient's condition with the staff and reviewed records and labs. The patient still has episodes of yelling and screaming for no apparent reasons. The patient also at certain time was trying to kiss a nurse inappropriately and also in a confused state. The patient also is demanding to smoke and gets agitated when staff does not allow her to smoke and give her the instructions about not smoking. Otherwise, the patient is compliant with taking her medications, but needs prompt instructions and directions. ASSESSMENT: The patient is still agitated and psychotic and aggressive. TREATMENT PLAN: Continue to monitor behavior and condition closely. Also, we will increase Haldol to 7.5 mg twice a day. Also, Depakote blood level that was done on 09/28/2019 was 20, which is below therapeutic level and we will increase Depakote to 500 mg twice a day and we will get Depakote blood level next week and we will continue to follow up. JOB# [id number]
[2019-10-10] MEDS: Benztropine 1 MG TAB PO SCH (09:01)
--- NOTE | 2019-10-10 19:48 | Progress Notes ---
DATE: 10/10/2019 SUBJECTIVE: The patient was seen in the dining area. The patient appears to be guarded, easily gets frustrated, episodes of poor impulse control and needs a lot of redirection. Otherwise, the patient is in no acute distress. OBJECTIVE: VITAL SIGNS: Temperature 96.8, heart rate 93, blood pressure 109/60, respirations 18, and 96% on room air. HEENT: Head is atraumatic and normocephalic. Eyes: Bilateral conjunctivae are clear. Bilateral pupils are equally round and reactive. NECK: Supple. No JVD. CARDIOVASCULAR: S1 and S2, without murmur. PULMONARY: Clear to auscultation. GASTROINTESTINAL: Soft and nontender without guarding. Positive bowel sounds. MUSCULOSKELETAL: No clubbing. No cyanosis noted. ASSESSMENT: 1. Schizoaffective disorder. 2. Psychosis. 3. Hypertension. 4. Hyperlipidemia. 5. Diabetes. PLAN: We will continue to keep the patient inpatient at the Psychiatric [facility]. We will follow up with a psychiatrist to monitor the patient's condition and behavior. We will put the patient on fall precautions. Treatment plans were discussed with the patient's nurse. Treatment plans were discussed with Dr. Hidalgo. JOB# [id number]
--- NOTE | 2019-10-11 00:57 | Progress Notes ---
DATE: 10/10/[address] Echeverria. IDENTIFYING DATA: A 74-year-old female brought in here from [place] after getting medically cleared for agitated, irritable, and responding and cursing. Today on [id number] evaluation of the patient, she is here, thinks she is here to buy a car. She is looking for a convertible. When attempting to redirect her in regards to this is a hospital, she becomes very frustrated, she is only here to seek a new car. ASSESSMENT AND PLAN: History of schizophrenia, disorganized and delusional. We will continue with the recent primary psychiatrist's treatment plan and goals, which included ____ increase of Haldol to 7.5 p.o. b.i.d., Ativan as needed, and trazodone with Depakote, pending Depakote ____. JOB# [id number]
[2019-10-11] MEDS: Benztropine 1 MG TAB PO SCH (09:00)
--- NOTE | 2019-10-11 11:43 | Progress Notes ---
DATE: 10/11/[address] Echeverria. Today on [id number] evaluation, the only thing she thinks she is going to buy here a car, but also reports that she has invited everybody to her birthday and making ____. Outside of that communication, she becomes easily frustrated. MENTAL STATUS EXAMINATION: Frustrated, severe memory impairment. ASSESSMENT AND PLAN: History of schizophrenia, disorganized and severe dementia. We will continue with the recent increase of Haldol to target the patient's ongoing delusions as noted above. JOB# [id number]
--- NOTE | 2019-10-11 13:17 | Internal Medicine Prog Note ---
Internal Medicine Subjective - Subjective Patient is:: awake, verbal, philly chair, confused Patient Complaints of:: other (Diabetic.) Per staff patient has:: no adverse event, no episodes of fall, other Internal Medicine Objective - Physical Exam Vitals and I&O: Vital Signs Temp 98.2 F 10/11/19 06:40 Pulse 88 10/11/19 06:40 Resp 16 10/11/19 08:00 BP 106/70 10/11/19 09:00 Pulse Ox 97 10/11/19 06:40 Intake & Output 10/10/19 10/11/19 10/11/19 18:59 06:59 18:59 Intake Total 1000 120 Balance 1000 120 Intake: Oral 1000 120 Other: # Voids 4 2 # Bowel Movements 1 0 Active Medications: Current Medications Acetaminophen (Tylenol) 650 mg PO Q4HR PRN PRN Reason: Mild Pain (Scale 1-3) Stop: 11/27/19 01:01 Last Admin: 10/10/19 10:24 Dose: 650 mg Acetaminophen (Tylenol) 650 mg PO Q4HR PRN PRN Reason: TEMP ABOVE 100 Stop: 11/28/19 16:02 Al Hydrox/Mg Hydrox/Simethicone (Maalox) 30 ml PO Q6HR PRN PRN Reason: Upset Stomach / Indigestion Stop: 11/27/19 01:01 Benztropine Mesylate (Cogentin) 1 mg PO DAILY [facility] Stop: 11/27/19 08:59 Last Admin: 10/11/19 09:00 Dose: 1 mg Docusate Sodium (Colace) 100 mg PO BID [facility] Stop: 11/27/19 08:59 Last Admin: 10/11/19 08:59 Dose: 100 mg Furosemide (Lasix) 40 mg PO DAILY [facility] Stop: 11/27/19 08:59 Last Admin: 10/11/19 09:00 Dose: 40 mg Haloperidol (Haldol) 7.5 mg PO BID [facility]; Protocol Stop: 12/08/19 08:59 Last Admin: 10/11/19 08:59 Dose: 7.5 mg Lorazepam (Ativan) 0.5 mg PO Q4HR PRN; Protocol PRN Reason: Anxiety Stop: 11/27/19 01:01 Last Admin: 10/10/19 22:13 Dose: 0.5 mg Magnesium Hydroxide (Milk Of Magnesia) 30 ml PO HS PRN PRN Reason: Constipation Metoprolol Succinate (Toprol Xl) 100 mg PO DAILY [facility] Stop: 11/27/19 08:59 Last Admin: 10/11/19 09:11 Dose: Not Given Trazodone HCl (Desyrel) 50 mg PO HS [facility]; Protocol Stop: 11/27/19 20:59 Last Admin: 10/10/19 21:12 Dose: 50 mg Valproate Sodium (Depakene) 500 mg PO BID [facility]; Protocol Stop: 12/08/19 08:59 Last Admin: 10/11/19 08:59 Dose: 500 mg Zolpidem Tartrate (Ambien) 5 mg PO HS PRN PRN Reason: Insomnia Stop: 11/27/19 01:01 Last Admin: 10/10/19 21:13 Dose: 5 mg General: weak, demented, NAD HEENT: NC/AT, PERRLA Neck: Supple, No JVD Lungs: other (no acute respiratory distress on RA) Cardiovascular: RRR Abdomen: soft, non-tender Extremities: clear Neurological: no change - Procedures Procedures: Procedures Procedure Code Date OTHER GROUP THERAPY 94.44 05/10/15 RECREATIONAL THERAPY 93.81 12/31/07 Internal Medicine Assmt/Plan - Assessment Assessment: Schizoaffective Disorder. Psychosis Delusional Hx afib Diabetes. Hyperlipidemia. Hypertension. - Plan Plan: Continue current treatment plan. Continue current medications Continue to monitor VS Monitor Diet/Nutritional support. Psych management per Psychiatry. Pain Management. PT/OT prn Safety precaution, Fall precaution, frequent nursing round. Supportive care. Continue collaborating with consulting specialists, case management and nursing team Nutritional Asmnt/Malnutr-PDOC - Dietary Evaluation Malnutrition Findings (Please click <Entered> for more info): Nutritional Asmnt/Malnutrition Start: 10/01/19 14: 07 Text: Status: Complete Freq: Protocol: Document 10/01/19 14:07 DALE (Rec: 10/01/19 14:10 DALE [email or web address]) Nutritional Asmnt/Malnutrition Patient General Information Nutritional Screening Moderate Risk Diagnosis Psychosis Pertinent Medical Hx/Surgical Hx Afib, DM, Hyperlipidemia, HTN, Schizoaffective Disorder Subjective Information Pt is a 74-year-old female admitted on 09/27 d/t pt screaming and throwing thing, delusional. Pt is eating an estimated 65% of meals x 3 days (average) Per Meal/ Nutrition Activity Record. Dietary is currently providing an estimated 2500 kcals and 100 gm Pro, per Pt PO intake this is providing an estimated 1625 kcals and 65gm Pro to meet 100% kcal and 100% Pro needs. Recommend CCHO added to Diet Rx as pt had labs (09/27) A1c 6.1%. Spoke with nurse Enriquez pertaining to recommendation. Anthropometrics HT: 54 WT: 158 LB (71.82 kg) ABW: 130 LB (58.86 kg) BMI: 27.12 (Overweight) GI/ Skin Integrity GI: WNL, Soft, Non-tender BM: 09/30 x1 I/O: 720/Not Noted Skin: WNL, Intact Jewel: 16 Diet Order: Pureed Estimated Energy Needs: ( Geriatric, ABW) 4756-7921 kcals (25-30 kcals/ kg) 60-70g Pro (1.0-1.2 g/kg) 3960-4551 ml (25-30 ml/kg) Current Diet Order/ Nutrition Support Pureed Pertinent Medications Maalox (PRN), Colace, Lasix, MOM (PRN) Pertinent Labs 09/27: A1c 6.1%, BUN/Cr 43/1. 64, Na 131, HDL 33 Nutritional Hx/Data Height 5 ft 4 in Height (Calculated Centimeters) 162.6 Current Weight (lbs) 158 lb Weight (Calculated Kilograms) 71.7 Weight (Calculated Grams) 94204.6 [place] Body Weight 120 LB (54.44 kg) % [place] Body Weight 132 Body Mass Index (BMI) 27.1 Weight Status Overweight GI Symptoms GI Symptoms None Last BM 09/30 x1 Skin Integrity/Comment: Skin: WNL, Intact Jewel: 16 Current %PO Fair (50-74%) Estimated Nutritional Goals BEE in Kcals: Adj wt of IBW Calories/Kcals/Kg 25-30 Kcals Calculated 5162-4726 Protein: Adj wt of IBW Protein g/k.0-1.2 Protein Calculated 60-70 Fluid: ml 1836-3555 ml (25-30 ml/kg) Nutritional Problem No current Nutrition Prob Problem No nutrition diagnosis at this time. Etiology N/A Signs/Symptoms: N/A Malnutrition Related to Morbid Obesity Malnutrition related to morbid obesity No Intervention/Recommendation Comments Recommend CCHO added to Diet Rx as pt had labs (09/27) A1c 6.1%. Expected Outcomes/Goals Expected Outcomes/Goals 1.PO intake to continue to meet >75% of estimated nutritional needs. 2.Monitor PO intake, wt, nutrition related labs, and skin integrity. 3.F/U as low risk in 7-10 days , 10/08-10/11
--- NOTE | 2019-10-12 08:19 | Progress Notes ---
DATE: 10/12/2019 SUBJECTIVE: Chart was reviewed and the patient interviewed. Also discussed the patient's condition with the staff and reviewed records and labs. The patient is still confused and she is still easily agitated and easily irritable. The patient also is still suspicious and paranoid and needs lots of redirections. The patient is also still having severe mood swings and severe anxiety. She also needs lots of redirections. Also, the patient has not been able to sleep all night through, was waking up in the middle of the night. Otherwise, the patient is compliant with taking her medications with no side effects of medications. ASSESSMENT: The patient is still psychotic and confused and needs close monitoring. TREATMENT PLAN: Continue to monitor behavior and condition closely. Also, we will continue Haldol, Depakote and Cogentin. Depakote blood level is pending. JOB# [id number]
[2019-10-12] MEDS: Benztropine 1 MG TAB PO SCH (09:43)
--- NOTE | 2019-10-12 10:10 | Internal Medicine Prog Note ---
Internal Medicine Subjective - Subjective Service Date: 10/12/19 Patient seen and examined:: with staff Patient is:: awake, verbal, philly chair, confused Patient Complaints of:: other (Diabetic.) Per staff patient has:: no adverse event, no episodes of fall, other Internal Medicine Objective - Physical Exam Vitals and I&O: Vital Signs Temp 97.0 F 10/12/19 06:24 Pulse 84 10/12/19 09:43 Resp 20 10/12/19 06:24 BP 153/65 10/12/19 09:43 Pulse Ox 96 10/12/19 06:24 Intake & Output 10/11/19 10/12/19 10/12/19 18:59 06:59 18:59 Intake Total 240 Balance 240 Intake: Oral 240 Other: # Voids 4 2 # Bowel Movements 0 Active Medications: Current Medications Acetaminophen (Tylenol) 650 mg PO Q4HR PRN PRN Reason: Mild Pain (Scale 1-3) Stop: 11/27/19 01:01 Last Admin: 10/10/19 10:24 Dose: 650 mg Acetaminophen (Tylenol) 650 mg PO Q4HR PRN PRN Reason: TEMP ABOVE 100 Stop: 11/28/19 16:02 Al Hydrox/Mg Hydrox/Simethicone (Maalox) 30 ml PO Q6HR PRN PRN Reason: Upset Stomach / Indigestion Stop: 11/27/19 01:01 Benztropine Mesylate (Cogentin) 1 mg PO DAILY [facility] Stop: 11/27/19 08:59 Last Admin: 10/12/19 09:43 Dose: 1 mg Docusate Sodium (Colace) 100 mg PO BID [facility] Stop: 11/27/19 08:59 Last Admin: 10/12/19 09:43 Dose: 100 mg Furosemide (Lasix) 40 mg PO DAILY [facility] Stop: 11/27/19 08:59 Last Admin: 10/12/19 09:43 Dose: 40 mg Haloperidol (Haldol) 7.5 mg PO BID [facility]; Protocol Stop: 12/08/19 08:59 Last Admin: 10/12/19 09:44 Dose: 7.5 mg Lorazepam (Ativan) 0.5 mg PO Q4HR PRN; Protocol PRN Reason: Anxiety Stop: 11/27/19 01:01 Last Admin: 10/10/19 22:13 Dose: 0.5 mg Magnesium Hydroxide (Milk Of Magnesia) 30 ml PO HS PRN PRN Reason: Constipation Metoprolol Succinate (Toprol Xl) 100 mg PO DAILY [facility] Stop: 11/27/19 08:59 Last Admin: 10/12/19 09:43 Dose: 100 mg Trazodone HCl (Desyrel) 50 mg PO HS [facility]; Protocol Stop: 11/27/19 20:59 Last Admin: 10/11/19 20:46 Dose: 50 mg Valproate Sodium (Depakene) 500 mg PO BID [facility]; Protocol Stop: 12/08/19 08:59 Last Admin: 10/12/19 09:43 Dose: 500 mg Zolpidem Tartrate (Ambien) 5 mg PO HS PRN PRN Reason: Insomnia Stop: 11/27/19 01:01 Last Admin: 10/10/19 21:13 Dose: 5 mg Physical Exam: Continues to Need close monitoring, Patient is still in a agitated mood, hostile behavior. General: weak, demented, NAD HEENT: NC/AT, PERRLA Neck: Supple, No JVD Lungs: other (no acute respiratory distress on RA) Cardiovascular: RRR Abdomen: soft, non-tender Extremities: clear Neurological: no change - Procedures Procedures: Procedures Procedure Code Date OTHER GROUP THERAPY 94.44 05/10/15 RECREATIONAL THERAPY 93.81 12/31/07 Internal Medicine Assmt/Plan - Assessment Assessment: Schizoaffective disorder. Psychosis. Delusional. History of Afib. Diabetes. Hyperlipidemia. Hypertension. - Plan Plan: Monitor vitals and labs. Continue present meds as directed. Supportive care. Accu-check twice daily. Safety precaution. Monitor diet and nutritional support. Psych management as per Psych. Continue current treatment plan. Nutritional Asmnt/Malnutr-PDOC - Dietary Evaluation Malnutrition Findings (Please click <Entered> for more info): Nutritional Asmnt/Malnutrition Start: 10/01/19 14: 07 Text: Status: Complete Freq: Protocol: Document 10/01/19 14:07 DALE (Rec: 10/01/19 14:10 [facility] [email or web address]) Nutritional Asmnt/Malnutrition Patient General Information Nutritional Screening Moderate Risk Diagnosis Psychosis Pertinent Medical Hx/Surgical Hx Afib, DM, Hyperlipidemia, HTN, Schizoaffective Disorder Subjective Information Pt is a 74-year-old female admitted on 09/27 d/t pt screaming and throwing thing, delusional. Pt is eating an estimated 65% of meals x 3 days (average) Per Meal/ Nutrition Activity Record. Dietary is currently providing an estimated 2500 kcals and 100 gm Pro, per Pt PO intake this is providing an estimated 1625 kcals and 65gm Pro to meet 100% kcal and 100% Pro needs. Recommend CCHO added to Diet Rx as pt had labs (09/27) A1c 6.1%. Spoke with nurse Enriquez pertaining to recommendation. Anthropometrics HT: 54 WT: 158 LB (71.82 kg) ABW: 130 LB (58.86 kg) BMI: 27.12 (Overweight) GI/ Skin Integrity GI: WNL, Soft, Non-tender BM: 09/30 x1 I/O: 720/Not Noted Skin: WNL, Intact Jewel: 16 Diet Order: Pureed Estimated Energy Needs: ( Geriatric, ABW) 4735-4308 kcals (25-30 kcals/ kg) 60-70g Pro (1.0-1.2 g/kg) 0943-0067 ml (25-30 ml/kg) Current Diet Order/ Nutrition Support Pureed Pertinent Medications Maalox (PRN), Colace, Lasix, MOM (PRN) Pertinent Labs 09/27: A1c 6.1%, BUN/Cr 43/1. 64, Na 131, HDL 33 Nutritional Hx/Data Height 1.63 m Height (Calculated Centimeters) 162.6 Current Weight (lbs) 71.668 kg Weight (Calculated Kilograms) 71.7 Weight (Calculated Grams) 75824.6 [place] Body Weight 120 LB (54.44 kg) % [place] Body Weight 132 Body Mass Index (BMI) 27.1 Weight Status Overweight GI Symptoms GI Symptoms None Last BM 09/30 x1 Skin Integrity/Comment: Skin: WNL, Intact Jewel: 16 Current %PO Fair (50-74%) Estimated Nutritional Goals BEE in Kcals: Adj wt of IBW Calories/Kcals/Kg 25-30 Kcals Calculated 4408-4941 Protein: Adj wt of IBW Protein g/k.0-1.2 Protein Calculated 60-70 Fluid: ml 4470-9643 ml (25-30 ml/kg) Nutritional Problem No current Nutrition Prob Problem No nutrition diagnosis at this time. Etiology N/A Signs/Symptoms: N/A Malnutrition Related to Morbid Obesity Malnutrition related to morbid obesity No Intervention/Recommendation Comments Recommend CCHO added to Diet Rx as pt had labs (09/27) A1c 6.1%. Expected Outcomes/Goals Expected Outcomes/Goals 1.PO intake to continue to meet >75% of estimated nutritional needs. 2.Monitor PO intake, wt, nutrition related labs, and skin integrity. 3.F/U as low risk in 7-10 days , 10/08-10/11
[2019-10-13] MEDS: Benztropine 1 MG TAB PO SCH (09:12)
== END 2019-10-13 15:55 | DRG 885 ==
LOC: GERO 22:00
PROVIDERS: ADMIT Psychiatry & Neurology Psychiatry; ATTEND Psychiatry & Neurology Psychiatry
DX: F25.9 Schizoaffective disorder, unspecified (principal); F29 Unspecified psychosis not due to a substance or known physiological condition; F22 Delusional disorders; I10 Essential (primary) hypertension; E78.5 Hyperlipidemia, unspecified; I48.91 Unspecified atrial fibrillation; E11.9 Type 2 diabetes mellitus without complications
CPT/HCPCS: 83036-90; G0410; Z7610